=== PATIENT | female | born 2000 | race Caucasian/White ===

== ENCOUNTER → 2021-10-12 | Outpatient (CLI) | payer BC, SELFPAY ==
[2021-10-19 14:14] LABS: HPV Reflexed? NOT INDICATED
== END | disposition home or self-care (01) ==
LOC: LABSPEC 11:32
PROVIDERS: Visit Provider Obstetrics & Gynecology
DX: Z12.4 Encounter for screening for malignant neoplasm of cervix (principal)
CPT/HCPCS: 88175; G0145

== ENCOUNTER 2022-02-07 08:00 | Outpatient (RCR) | payer OTHER, SELFPAY ==
--- NOTE | 2022-02-07 10:15 | BH.SGPN.GN ---
Behaviors/Verbalizations/Mental Status: []Pt alert and oriented, casually dressed and groomed. Eye contact good. Motor activity appropriate. Speech within normal limits. Affect constricted, mood anxious. Thoughts linear, logical, no signs of hallucinations or delusions. Client Response/Progress/Benefit: []Pt was a passive participant in group discussion. Group worked together to identify benefits of healthy relationships which included improves mental health, encouragement, motivation, accountability, validation, connection, someone to share experiences with, and less stress. Group identified factors that lead to unhealthy relationships which included financial stress, lack of communication, .?Actively participated in group experiential activity and expressed her ideas to group. Benefited from increased insight and awareness of benefits of healthy relationships and factors that contribute to unhealthy relationships. First week of IOP tx. Will continue in IOP to prevent decompensation, reduce negative thinking, and gain healthy coping skills. ? Narrative Note: []
--- NOTE | 2022-02-07 11:10 | BH.SGPN.GN ---
Behaviors/Verbalizations/Mental Status: [] Client alert and oriented, casually dressed and groomed. Eye contact fair. Motor activity appropriate. Speech within normal limits. Affect constricted, mood depressed and anxious. Thoughts linear, logical, no signs of hallucinations or delusions. Client Response/Progress/Benefit: [] Client responded well to session, engaged and taking notes. work with small group to identify characteristics of healthy and unhealthy relationships. Attentive during psychoeducation and discussion about characteristics of healthy, unhealthy, and abusive relationships. Client reported she is currently in her first healthy relationship and is worried she isn't good enough for him because she is a hot mess. Client agreed allowing herself to be in this relationship instead of sabotaging the relationship because of her negative self-talk. Appeared to benefit from identifying areas she wants to work on to build healthier relationships. Pt recommended to continue IOP tx to improve daily functioning, increase healthy coping, and prevent decompensation.
--- NOTE | 2022-02-07 14:43 | BH.MDN_ITS ---
Multi-Disciplinary Note - Note 45-min Individual Time Started:: 09:16 Date: 02/07/22 Purpose of session/treatment goals addressed:: To gather information on client's current stressors, symptoms, triggers, and tx goals. Another goal was to build rapport and provide emotional support. Eye Contact:: Good Motor Activity:: Appropriate Appearance:: Casual Speech:: Appropriate, Soft Mood:: Anxious, Depressed Affect:: Congruent Thoughts:: Linear, Logical, No evidence of hallucinations/delusions noted Staff Interventions:: motivational interviewing, psychoeducation on: - maintenance cycles, safety behaviors, rapport building, strengths perspective, treatment planning, goal setting Client Response:: Pt responded well to session, open to meeting with therapist. 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 Shared that she is struggling most with a lack of local support, feeling isolated/lonely, managing stress of her schedule, and fears she will not be able to meet the expectations she has for herself. Discussed she has been seeing a counselor through [facility] since beginning graduate school, but has found limited benefit from this. Pt reports feeling like nothing is getting better and struggling with negative thoughts that her depression and anxiety are going to keep her from being successful. Denies having any healthy coping skills and is interested in developing healthier means of managing her depression, passive SI, ruminating thoughts, and anxiety. Pt denies any active SI, plan, or intent but in the past has become suicidal when feeling overwhelmed or if she thinks she is ?failing? at reaching a goal. Pt has a hx of self-harming via cutting herself with cuticle scissors, last engaged in self-harming behaviors 2 years ago. Reports wanting a focus of tx to be on improving her social anxiety and ability to make connections with others in the area. Connected with psychoeducation on maintenance cycles and safety behaviors. Receptive of reviewing information on fear ladders for homework to begin discussing use of some exposure therapy in improving confidence in social settings. Risks/Concerns:: Chronic passive SI, however Pt denies any active suicidal ideations, plan, or intent as of 02/07/22. Pt denies any HI. Progress Toward Goals/Plan:: Pt's first day of IOP tx. Pt shared she is looking forward to learning skills for better managing her mental health sx and improving mood stability. Pt currently endorses a depressed mood, low confidence, panic, crying spells, rumination, anxiety, apathy, and low motivation. Pt reports symptoms are impacting her academics, desire to do things, and ability to develop healthy relationships/supports in the area. Pt has outpatient counseling and psychiatry services already established. Pt will continue IOP tx to prevent decompensation, increase healthy coping skills, and improve overall functioning. Time Stopped:: 10:05
--- NOTE | 2022-02-07 14:43 | BH.MTP ---
Master Treatment Plan - Patient Information Program Physician:: Dr. Allison Pack Primary Therapist:: APPLE Beck - Psychiatric Diagnoses Psychiatric Diagnoses:: 1. Major depressive disorder, recurrent, severe without psychosis. 2. Generalized anxiety disorder. 3. Cluster B traits Diagnosis Code(s):: F 33.2 - Estimated LOS Estimated LOS (in weeks):: 6 Problem/Goal #1 - Problem/Goal #1 Stated Goal:: Client will decrease depressive symptoms, isolation, negative self-talk, and hopelessness to major depression disorder. Description of Barriers: Client does not have any supports in the area. Client reports fear of failure and worries she will not be able to accomplish her goals.Client has significant distortions and experiences difficulties in challenging these distortions. Functional Impact: The patient is a 21-year-old single female with a history of depression and anxiety who was referred to the [facility] behavioral health IOP program by her outpatient psychologist. She reports worsening depression and anxiety since September 2021 when she began her graduate school program. She states I cannot make myself face the day and describes that she has to lie in bed for an hour crying in order to try to get up in the morning. 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 At time of intake pt endorses feeling depressed, sad, hopelessness, worthlessness, anhedonia, decreased concentration, rumination, avoidance, and lack of interest in activities she enjoys. denies OCD, eating disorder, trauma or PTSD. She also denies suicidal ideation or plan for suicide but does admit to passive thoughts of on occasion. She denies homicidal ideation, hallucinations, delusions or symptoms of toshia ever. Pt reports that current sx are impacting her academically, socially, and impeding her ability to find value in herself. - Objectives Objective #1 Stated Objective: Client will learn and utilize 2-3 healthy coping strategies to better manage depressive symptoms as shown by a reduced DSM-5 scores for depression. Interventions: Through group and individual sessions, therapist will help client identify triggers and warning signs of depression and emotional dysregulation including emotional, physical, and behavioral changes. Therapist will teach client various coping skills to manage her symptoms and give client tangible resources to use to regulate emotions. Therapist will use cognitive restructuring techniques and help client gain awareness of negative thoughts that reinforce guilt and depression. Therapist will provide psychoeducation on maintenance cycles and help client learn ways to break unhealthy maintenance cycles. Therapist will help client incorporate behavioral activation and assist client in setting SMART goals. Discharge Criteria: Client will have met this goal when she can report learning and using at least 2 coping skills to manage depressive symptoms. Additionally, client will have met this goal when her depressive symptoms have reduced on the DSM-5 scale. Target Date: 03/21/22 Review Date: 02/28/22 Objective #2 Stated Objective: Client will identify at least 2-3 negative self-talk messages used to reinforce negative core beliefs and replace thoughts with positive, realistic messages. Interventions: Therapist will help client identify distorted, negative beliefs about self and replace with more realistic, affirmative messages. Therapist will use CBT to help client increase insight to the connection between thoughts, emotions, and behaviors. Therapist will also use dialectical thinking to help client combat all or nothing expectations and fear of failure. Therapist will encourage client to practice thought challenging. Discharge Criteria: Client will have achieved this goal when can verbalize at least 2 negative self-talk messages and effectively replace those thoughts with affirmative messages. Target Date: 03/21/22 Review Date: 02/28/22 Problem/Goal #2 - Problem/Goal #2 Stated Goal:: Client will decrease ruminating thoughts, avoidance, and racing thoughts caused by anxiety. Description of Barriers: Client does not have any supports in the area. Client reports fear of failure and worries she will not be able to accomplish her goals.Client has significant distortions and experiences difficulties in challenging these distortions. Functional Impact: The patient is a 21-year-old single female with a history of depression and anxiety who was referred to the [facility] behavioral health IOP program by her outpatient psychologist. She reports worsening depression and anxiety since September 2021 when she began her graduate school program. She states I cannot make myself face the day and describes that she has to lie in bed for an hour crying in order to try to get up in the morning. 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 At time of intake pt endorses feeling depressed, sad, hopelessness, worthlessness, anhedonia, decreased concentration, rumination, avoidance, and lack of interest in activities she enjoys. denies OCD, eating disorder, trauma or PTSD. She also denies suicidal ideation or plan for suicide but does admit to passive thoughts of on occasion. She denies homicidal ideation, hallucinations, delusions or symptoms of toshia ever. Pt reports that current sx are impacting her academically, socially, and impeding her ability to find value in herself. - Objectives Objective #1 Stated Objective: Client will identify 2-3 cognitive distortions that lead to rumination and learn 2-3 ways to manage these thoughts to better manage anxiety. Interventions: Therapist will provide education on the most common cognitive distortions and teach client the connection between thoughts, emotions, and feelings. Therapist will assist client in identifying, challenging, and replacing dysfunctional thoughts with positive, more realistic thoughts. Therapist will use CBT and DBT techniques to help client gain awareness of thinking errors and learn how to handle negative thoughts more effectively. Therapist will also use self-compassion to help client set more realistic expectations for herself. Discharge Criteria: Client will have accomplished this goal when can identify at least 2 cognitive distortions and at least 2 coping skills to manage negative thoughts. Target Date: 03/21/22 Review Date: 02/28/22 Objective #2 Stated Objective: Client will identify 2-3 anxiety triggers and 2 coping skills to use when feeling anxious to manage anxiety as shown by decreasing her avoidance behaviors and DSM-5 scores for anxiety. Interventions: Therapist will provide education on anxiety, avoidance behaviors, and maintenance cycles. Therapist will help client explore personal symptoms and warning signs of anxiety. Therapist will teach client coping skills to improve emotional regulation, mindfulness, and distress tolerance to help client cope with anxiety in the moment. Discharge Criteria: Client will have accomplished this goal when she can identify at least 2 triggers and report using 2 coping skills to manage anxiety. Additionally, client will have accomplished this goal when her avoidance behaviors and DSM-5 scores show a reduction. Target Date: 03/21/22 Review Date: 02/28/22
--- NOTE | 2022-02-07 14:43 | BH.PSA ---
Suicide Assessment Treatment Plan Recommendations
--- NOTE | 2022-02-08 09:00 | BH.SGPN.GN ---
Behaviors/Verbalizations/Mental Status: [] Eye contact is fair. Motor activity is appropriate. Appearance is casual. Speech is Appropriate. Mood is anxious. Affect is constricted. Thoughts are linear and logical. No evidence of psychosis. Reviewed daily check in sheet and no reports of suicidal ideations or intent. Client Response/Progress/Benefit: []Pt responded well to session AEB listening attentively to others and sharing thoughts and feelings. Pt identified mental health positive as showing up from IOP today for her second day in the program. Additional positive as setting boundary with her ex-boyfriend that she can't be his support person anymore after he was talking to her about his suicidal thoughts. Pt stated she realized trying to be his support person was negatively impacting her mental health. Pt identified stressor as having to go home for the holidays because she stated it won't feel like she had much of a break. Pt to continu eIOP to improve daily functioning, increase healthy coping, and prevent decompensation. Narrative Note: []
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
--- NOTE | 2022-02-08 10:05 | BH.SGPN.GN ---
Behaviors/Verbalizations/Mental Status: []Eye contact is good. Motor activity is appropriate. Appearance is casual. Speech is Appropriate. Mood is depressed and anxious. Affect is congruent. Thoughts are linear and logical. No evidence of psychosis. Client Response/Progress/Benefit: []Pt participated during the group discussion AEB attentiveness however pt provided limited input as this is only her second day in IOP group. Attentive during psychoeducation and actively engaged during experiential activity. Participated during interactive discussion on aspects of fixed mindset. Group identified several aspects of fixed mindset which included; inflexible, belief that one cannot grow, absolute thinking, and all of one's skills, traits, and behaviors are set in stone and can't change. Pt did well in experiential activity in which they were given a seemingly impossible task and were asked to identify fixed thoughts that arose. Group then identified personal examples of fixed thinking in which pt opted not to share with the group. Pt is still new to IOP tx and adjusting to sharing personal thoughts and feelings in the group setting. Benefited from increased understanding of personal fixed mindsets and how they can impact mental health. Will continue in IOP to promote healthy skill application, improve anxiety management, and promote self-care. Narrative Note: []
[2022-02-08 10:21] VITALS: BP 132/80; PULSE 101
--- NOTE | 2022-02-08 11:05 | BH.SGPN.GN ---
Behaviors/Verbalizations/Mental Status: []Pt alert and oriented, neatly dressed and groomed. Eye contact good. Motor activity appropriate. Speech within normal limits. Affect congruent, mood anxious. Thoughts linear, logical, no signs of hallucinations or delusions. Client Response/Progress/Benefit: []Pt engaged during activity and discussion AEB providing some input, connecting with peers, as well as taking notes throughout. Pt did well to engage as group worked on identifying characteristics and benefits of adopting a growth mindset. Worked with fellow participants in reframing the example fixed thoughts into growth mindset thoughts. Reframed personal fixed thought of ?I?m not good enough and I?ll never be? with growth mindset thought of ?I wouldn?t be here if there was evidence that I wasn?t good enough? Benefitted from discussing benefits of growth mindset and brainstorming strategies for prompting growth-mindset. Pt?s first week of IOP tx. Will continue IOP tx to prevent decompensation, gain healthy coping skills, and improve overall functioning. ?? Narrative Note: []
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
--- NOTE | 2022-02-08 12:17 | BH.DR.ITP ---
Initial Treatment Plan Patient Information Visit Information: ADMISSION DATE: EXPECTED LOS: 4-6 weeks Problems/Symptoms Problem #1:: Depression Symptom:: Sadness, hopelessness, worthlessness, anhedonia, fatigue, low energy, decreased concentration, passive thoughts of Problem #2:: Anxiety Symptom:: Worry, rumination, panic attacks, avoidance
--- NOTE | 2022-02-15 11:08 | BH.SGPN.GN ---
Behaviors/Verbalizations/Mental Status: []Pt alert and oriented, neatly dressed and groomed. Eye contact good. Motor activity appropriate. Speech within normal limits. Affect congruent, mood anxious. Thoughts linear, logical, no signs of hallucinations or delusions. Client Response/Progress/Benefit: []Pt engaged in session AEB contributing to discussion and engaging in activity. Pt did well to review current conflict style and its impact on mental health. Attentive and taking notes during discussion on strategies for more effectively managing conflict in personal life.? Pt participated in activity and did well to talk through choices with peers. Pt given handout on fair fighting rules and identified that they want to work on asking herself why she is upset before she begins talking about an issue. Appeared to benefit from gaining strategies to help pt better manage conflict. Will continue IOP tx to reduce depressive symptoms, improve daily functioning, and increase self-compassion. Narrative Note: []
--- NOTE | 2022-02-15 11:27 | BH.MDN ---
Multi-Disciplinary Note - Note 60-min Individual Time Started:: 09:29 Date: 02/15/22 Purpose of session/treatment goals addressed:: To work on goal #2 of pt's treatment plan. Another goal was to process current stressors. Eye Contact:: Fair - tearful throughout discussion Motor Activity:: Appropriate Appearance:: Casual Speech:: Appropriate Mood:: Anxious, Depressed Affect:: Congruent Thoughts:: Linear, Logical, No evidence of hallucinations/delusions noted Staff Interventions:: thought challenging, CBT techniques - Discussed and created a fear ladder, mindfulness skills - reviewed calming skills for anxiety, strengths perspective, goal setting Client Response:: Pt responded well to session, open to meeting with therapist. Pt shared belief thats he is doing worse since her trip home for the holidays. Reports visiting with her sister was a positive, but that her relationship with her parents is strained. Expressed feeling lonely and isolated upon returning home as she does not have many friends in the area. Pt?s boyfriend is visiting this weekend but pt is often isolated when he is not visiting or she is not in class. 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 Reports this has also impacted her academically as she experiences similar fears when presenting her work or asked to collaborate on a research project. Pt wants to feel more comfortable and confident in presenting her work, make more friends, and be social, but pt shared extreme anxiety in trying to communicate with others. Pt identified thoughts she has when socializing or presenting her work such as assuming people will not like her, think she is dumb, or discover her work is ?hollow?. Pt highly fears embarrassing herself in front of people. Pt receptive to creating a fear ladder focused on overcoming social anxiety and fear of embarrassment. Discussed the reason for this approach and the potential benefits. Pt expressed extreme anxiety about challenging herself to begin identifying and working on small exposure goals but noted ?I need this, I know it won?t change it I don?t work on it?. Discussed the importance of practicing outside of IOP and while in IOP sessions. Pt receptive of creating exposure goals for homework and begin challenging herself to share in the group setting. Risks/Concerns:: Pt denies any active suicidal ideations, plan, or intent as of 02/15/22. Future oriented. Progress Toward Goals/Plan:: Pt is making progress on treatment goals AEB consistent attendance, but pt reports depression and anxiety have not improved yet. Discussed to shift focus on reducing social anxiety to help alleviate depressive symptoms. Pt continues to endorse a depressed mood, isolative behaviors, fear of judgement, avoidance, and negative self-talk. Pt will continue IOP tx to prevent further decompensation, increase ability to manage anxiety, and improve daily functioning. Time Stopped:: 10:32
--- NOTE | 2022-02-16 09:05 | BH.SGPN.GN ---
Behaviors/Verbalizations/Mental Status: [] Eye contact is good. Motor activity is appropriate. Appearance is casual. Speech is Appropriate. Mood is euthymic. Affect is full. Thoughts are linear and logical. No evidence of psychosis. Reviewed daily check in sheet and no reports of suicidal ideations or intent. Client Response/Progress/Benefit: [] Pt participated at times during the group discussion. Participated in group mindfulness exercise (5 senses).Daily symptom tracker notes 3/5 for depression and 4/5 for anxiety. Huoli talon was talking with a supportive person last evening. She is stressed about the upcoming semester due to increased courses and responsibilities. Fearful that she may have overscheduled herself due to her struggles with mental health. The only coping skill that she can identify is distraction to manage her thoughts and distress. Group provided support, encouragement, and feedback which was helpful. Will continue in IOP to maintain safety, prevent decompensation, and increase coping skills. Narrative Note: []
--- NOTE | 2022-02-16 10:05 | BH.SGPN.GN ---
Behaviors/Verbalizations/Mental Status: []Eye contact is good. Alert and oriented. Motor activity is appropriate. Appearance is casual. grooming is appropriate. Speech is Appropriate. Mood is depressed and anxious. Affect is constricted. Thoughts are linear and logical. No evidence of psychosis or hallucinations. Client Response/Progress/Benefit: []Client active participate AEB listening attentively to others and providing contributions throughout. The group identified impacts of not managing emotions on communication as lashing out, stone-walling, not retaining information, and monopolizing the conversation. Client stated she has struggled with either shutting down or avoiding confrontation when upset, noting this has had negative impacts on her self-worth, reinforces anxiety, and impedes her ability to resolve the issue at hand in the past. Client engaged in activity, able to manage emotions in the moment. Client benefited from session to gain understanding on the importance of managing emotions to improve daily functioning. Client will continue IOP to increase use of healthy anxiety management skills, challenge negative thoughts, and prevent decompensation. Narrative Note: []
--- NOTE | 2022-02-16 11:15 | BH.SGPN.GN ---
Behaviors/Verbalizations/Mental Status: []Pt alert and oriented, casual appearance. Eye contact fair. Motor activity appropriate. Speech within normal limits. Affect congruent and mood euthymic. Thoughts linear, logical, no signs of hallucinations or delusions. Client Response/Progress/Benefit: []Pt engaged in session AEB pt listening attentively to peers, taking notes, and providing input. Attentive during psychoeducation on 4 zones of regulation. Pt able to identify feelings and behaviors pt exhibits for each zone.? Pt identified coping skills one can use to support self in each zone. Pt reported she connects with being in the blue zone most often. Pt identified coping skills willing to practice to include: moving her body and doing art. Benefited from increased education on zones of regulation or stages of alertness for emotions and healthy coping skills to use for each zone. pt to continue IOP to improve ability to set realistic expectations, give self credit for accomplishments and prevent decompensation.
--- NOTE | 2022-02-17 09:05 | BH.SGPN.GN ---
Behaviors/Verbalizations/Mental Status: []Pt alert and oriented, neatly dressed and groomed. Eye contact good. Motor activity appropriate. Speech within normal limits. Affect congruent, mood calm. Thoughts linear, logical, no signs of hallucinations or delusions. Reviewed pt?s symptom tracker and pt denies any active SI, plan, or intent as of 02/17/22. ? Client Response/Progress/Benefit: []Pt responded well to session, attentive and engaged. Pt reports feeling encouraged this morning as pt's boyfriend is coming to visit for the holiday and pt is excited to see him. To shared she also took some time to be crafty recently and pt benefited from this self-care time. Pt is highly anxious about the upcoming semester as pt historically puts high expectations on herself and pt knows the work load will be a challenge. The group offered supportive suggestions to help pt cope with the next semester. Pt appeared to benefit from connecting with peers and reflecting on skills. Pt will continue IOP tx to promote use of healthy coping skills, reduce negative thinking patterns, and improve mood stability. Narrative Note: []
--- NOTE | 2022-02-17 10:10 | BH.SGPN.GN ---
Behaviors/Verbalizations/Mental Status: Client alert and oriented, casually dressed and groomed. Eye contact fair. Motor activity appropriate. Speech within normal limits. Affect congruent, mood anxious. Thoughts linear, logical, no signs of hallucinations or delusions. Client Response/Progress/Benefit: [Client responded well to session, attentive and participating in discussion. Participated in discussion of things that can keep people feeling trapped or stuck in life including: isolation, past experiences, negative perspective, and low self-esteem. Group discussed the connection between thoughts, emotions, and behaviors as well as how negative thinking can keep a person stuck. Client attentive during psychoeducation on maintenance cycles. Client able to identify negative thoughts that have reinforced depression and kept client feeling trapped. Client shared a negative thought maintaining depression is I will fail or not do well in all my work. Stated this thought leads to procrastination, feeling exhausted, crying, and isolation. Appeared to benefit from gaining awareness of how negative thoughts reinforce mental health symptoms and keep people stuck. Client to continue IOP to improve ability to give self credit for positives, increase confidence, and prevent decompensation.
--- NOTE | 2022-02-17 11:05 | BH.SGPN.GN ---
Behaviors/Verbalizations/Mental Status: []Client alert and oriented, casually dressed and groomed. Eye contact good. Motor activity appropriate. Speech within normal limits. Affect constricted, mood anxious and depressed. Thoughts linear, logical, no signs of hallucinations or delusions. Client Response/Progress/Benefit: []Client responded well to session, contributing to discussion when prompted, and attentive throughout discussion. Client identified a negative thought that has kept them stuck. Client's thought was Everyone can see my work is hollow and not good enough?. Client reported when they think this way, they procrastinate, speak negatively to self, and isolate. Client worked to reframe the thought by finding more rational, realistic ways to look at the thoughts and then processed within group setting. Client reframed the thought to ?I am trying my best?. Client stated she will continue to try and remind herself of times she has been given compliments on her work to continue challenging negative self-talk. Client appeared to benefit from practicing challenging negative thinking. Client will continue IOP tx to increase overall functioning and prevent decompensation. Narrative Note: []
== END 2022-02-18 23:59 ==
LOC: BHIOP 08:00
PROVIDERS: Referring Provider Psychiatry & Neurology Psychiatry; Visit Provider Psychiatry & Neurology Psychiatry
DX: F33.2 Major depressive disorder, recurrent severe without psychotic features (principal); F41.1 Generalized anxiety disorder; Z79.899 Other long term (current) drug therapy
CPT/HCPCS: S9480; 90834; 90837; 90853

== ENCOUNTER 2022-02-21 07:31 | Outpatient (RCR) | payer OTHER, SELFPAY ==
[2022-02-19 00:40] VITALS: BP 132/80; PULSE 101
--- NOTE | 2022-02-22 10:10 | BH.SGPN.GN ---
Behaviors/Verbalizations/Mental Status: [] Eye contact is poor. Motor activity is appropriate. Appearance is casual. Speech is Appropriate. Mood is depressed. Affect is flat. Thoughts are linear and logical. No evidence of psychosis Client Response/Progress/Benefit: [] Pt participated at times during group discussions. Attentive during psychoeducation. Pt and peers provided thoughts and feedback on the definition of crisis and types of crisis events. Participated in interactive discussion in which group identified unhealthy responses to crisis which included; alcohol use, drug use, sleeping to escape, binge-eating, lashing out at others, creating conflict to distract, isolating, avoiding responsibilities, not caring for oneself, and overspending. Pt was able to identify her top warning signs for being in crisis which were very low energy, unable to concentrate, and avoiding things. Benefited from increased understanding of crisis and pt's personal crisis warning signs. Will continue in IOP to prevent decompensation, increase healthy coping, and to improve functioing. Narrative Note: []
--- NOTE | 2022-02-22 11:10 | BH.SGPN.GN ---
Behaviors/Verbalizations/Mental Status: []Client alert and oriented, casually dressed and groomed. Eye contact fair. Motor activity appropriate. Speech within normal limits. Affect constricted. Mood dysthymic. Thoughts linear, logical, no signs of hallucinations or delusions. Client Response/Progress/Benefit: []Client responded well to session as evidenced by client listening attentively to others and providing strategies during discussion. Client identified his warning signs for crisis and gained further awareness of earliest warning signs. Client created a crisis action plan to help client better manage warning signs for crisis. Client?s action plan for low energy included: going to bed earlier, practicing self-care, move/stretch for 5 minutes, and use distress tolerance skills. Client appeared to benefit from creating a crisis action plan and increasing self-awareness. Client to continue IOP tx to continue use of healthy coping skills and prevent decompensation.
--- NOTE | 2022-02-22 12:14 | PCM.BH.PN ---
Progress Note Progress Note: History of Present Illness/Interim History: Patient is a 21-year-old single, female with a history of depression and anxiety who is seen in follow-up at the [facility] IOP program. I last saw the patient 2 weeks ago and at that time no medication changes were made as her outpatient provider was weaning her Lexapro and changing her over to Zoloft. The patient discontinued the Lexapro about 2 weeks ago and her Zoloft was increased to 25 mg about 12 days ago. The patient states that she still overall feels depressed and hopeless and overwhelmed at times. She does say that she had a fun weekend and enjoyed playing her new video game crafting and other hobbies but overall states that she does not feel much better. The patient still has some difficulty getting an up out of bed in the morning but says that she is no longer crying during that time. The patient still has a low energy level and somewhat decreased concentration. She has not had any panic attacks since our last visit. She denies passive thoughts of , suicidal ideation, homicidal ideation, hallucinations or delusions. Current Psychiatric Medications: [] Lexapro discontinued 2 weeks ago; Zoloft increased to 25 mg daily about 12 days ago. Mental Status Examination: [] Patient is a 21-year-old female who has her hair dyed red in the near the end and is ambulatory with a normal gait. She is appears normal for stated age and is casually dressed psychomotor agitation or retardation. She is cooperative during the interview. Eye contact is fair but she looks down at times when she talks about certain subjects. Speech is normal rate and rhythm and fluent with no pressure. Mood is depressed. Affect is minimally constricted and approaching full and normal. Thought process is goal-directed and organized. Thought content: There is no evidence of passive thoughts of , suicidal ideation, plan for suicide, homicidal ideation, hallucinations or delusions. The patient discusses having fun and enjoying things now but when asked states that she feels she is overall relatively unchanged. Reality testing is intact. Intelligence is above average. Judgment is intact. Insight is limited. Diagnoses: [] 1. Major depressive disorder, recurrent, severe without psychosis 2. Generalized anxiety disorder 3. Cluster B traits 4. Primary support and school/career issues Plan: [] The patient will continue the IOP program in behavioral health at [facility] as the structure, support, education and group therapy will hopefully prevent worsening of the patient's symptoms. She felt safe during the interview and if it anytime she does not feel safe she will let us know or go to the emergency room. The risks, options, and possible complications and side effects of medications were again discussed with the patient and she understands and accepts these. Patient is given the option of adding Wellbutrin XL 150 mg p.o. daily to her medication regimen. The patient refuses this at this time as she sees her outpatient doctor tomorrow and she is a little concerned that she might feel more anxious if she takes it. Patient will follow up with her outpatient providers as scheduled and I will see the patient in follow-up in 3 weeks.
--- NOTE | 2022-02-23 09:03 | BH.SGPN.GN ---
Behaviors/Verbalizations/Mental Status: []Eye contact fair to good, casually dressed, motor activity appropriate, speech normal rate and tone, mood dysthymic and anxious, congruent affect, thoughts linear and intact, no evidence of delusions or hallucinations. Reviewed pt's symptom tracker, reports suicidal ideation within pt baseline and denies active plan or intent as of this date 02/23/22. Client Response/Progress/Benefit: []Pt responded well to session, attentive and providing some supportive feedback throughout which is progress. Pt reports feeling melancholy this morning. Able to identify current mental health wins which included getting here despite struggling with increased fatigue this morning, as well as opening up to her feed management advisor about her mental health. Shared her advisor was supportive and encouraged pt to continue to communicate should she need any accommodations this semester. Pt went on to discuss a current stress as feeling overwhelmed by her to-do list and the upcoming start of the semester. Receptive of supportive feedback from fellow participants and willing to begin trying to take small self-care breaks throughout the day. Recommended continued IOP tx continue to improve mood stability and application of anxiety management skills, as well as prevent decompensation. Narrative Note: []
--- NOTE | 2022-02-23 10:05 | BH.SGPN.GN ---
Behaviors/Verbalizations/Mental Status: []Pt alert and oriented, neatly dressed and groomed. Eye contact good. Motor activity appropriate. Speech within normal limits. Affect constricted, mood stressed. Thoughts linear, logical, no signs of hallucinations or delusions. Client Response/Progress/Benefit: []Pt was an active participant in group discussions. Attentive during psychoeducation and participated in interactive discussions in which group defined self-care, discussed the benefits to self-care, and identified common myths surrounding self-care. Pt shared that when she is lacking self-care, her focus and attention decreases. Pt and peers broke into smaller group and worked together to bust the myths associated with self-care. Pt?s group worked on myths of self-care is not necessary, not everyone deserves self-care, and it takes too much energy. Benefited from increased awareness of the self-care and its benefits. Pt will continue IOP tx to reduce negative thinking patterns, improve mood stability, and gain healthy coping skills. ?? Narrative Note: []
--- NOTE | 2022-02-23 11:10 | BH.SGPN.GN ---
Behaviors/Verbalizations/Mental Status: []Pt alert and oriented, casually dressed and groomed. Eye contact fair. Motor activity appropriate. Speech within normal limits. Affect congruent, mood anxious and dysthymic. Thoughts linear, logical, no signs of hallucinations or delusions. Client Response/Progress/Benefit: []Pt engaged participant AEB completing self-assessment worksheet and providing some input throughout discussion. Participated in group discussion on the various areas of self-care. Pt completed worksheet identifying current self-care practices and what self-care activities pt wants to start using. Pt selected emotional self-care to begin practicing more consistently. Pt plans to do this by acknowledging accomplishments, setting boundaries, and positive self-talk. Appeared to benefit from completing the self-care evaluation and gaining insights into current self-care practices, as well as identifying areas in which she would like to improve upon. Will continue IOP tx to increase healthy coping skills, increase ability to set realistic expectations and prevent decompensation.
--- NOTE | 2022-02-24 10:08 | BH.SGPN.GN ---
Behaviors/Verbalizations/Mental Status: []Pt alert and oriented, casually dressed and groomed. Eye contact good. Motor activity appropriate. Speech within normal limits. Affect constricted, mood anxious. Thoughts linear, logical, no signs of hallucinations or delusions. Client Response/Progress/Benefit: []Pt was engaged participant AEB pt listening attentively to others and nodding. Attentive during psychoeducation on communication styles. Assisted group with identifying barriers of effective communication which included: mind-reading, body language, communicating with behaviors, and being vague. Pt reports that she most often uses passive or passive aggressive communication. Pt shared this leads to lack of boundaries and lots of ?setups? for pt and others. Benefited from increased awareness of different communication barriers, styles, and the importance of communicating effectively to improve mental wellness. Will continue IOP tx to prevent decompensation, improve mood stability, and reduce negative thinking patterns. Narrative Note: []
--- NOTE | 2022-02-24 11:10 | BH.SGPN.GN ---
Behaviors/Verbalizations/Mental Status: []Client alert and oriented, casually dressed and appropriately groomed. Eye contact good. Motor activity appropriate. Speech WNL. Affect congruent, mood anxious. Thoughts linear, logical, no signs of hallucinations or delusions. Client Response/Progress/Benefit: []Client responded well to session AEB client listening attentively to others and providing input during group discussion on the pay offs and costs of the different communication styles. Client able to connect how current communication style impacts mental health. Client engaged in activity, used assertive communication throughout in order to accomplish task. Connected with peers comments about importance of using assertive communication. Client reported she wants to use SHARI interpersonal skill to help her talk through problems with others. Client seemed to benefit from increasing awareness of healthy strategies to improve communication. Will continue IOP tx to increase consistent use of skills, challenge distortions, and prevent decompensation.
--- NOTE | 2022-02-24 11:24 | BH.MDN_ITS ---
Multi-Disciplinary Note - Note 45-min Individual Time Started:: 09:14 Date: 02/24/22 Purpose of session/treatment goals addressed:: To address current stressors and discuss strategies to help cope with these stressors. Another goal was to discuss discharge and aftercare. Eye Contact:: Good Motor Activity:: Appropriate Appearance:: Casual Speech:: Appropriate Mood:: Anxious, Dysthymic Affect:: Congruent Thoughts:: Linear, Logical, No evidence of hallucinations/delusions noted Staff Interventions:: motivational interviewing - reviewed strategies for overcoming self-care barriers, psychoeducation on: - mistaken beliefs and provided questionnaire for homework, CBT techniques, strengths perspective, other - created self-care plan to begin incorporating in daily routine Client Response:: Pt responded well to session, open to meeting with therapist. Pt shared she is feeling a little melancholy today as she had a good weekend with her boyfriend and felt she had been able to ?escape? for a little while. Noted now that she is back in her regular routine and preparing for the spring she is beginning to feel more overwhelmed and unable to manage her current responsibilities as efficiently as she would like. Shared that when she has multiple tasks to accomplish she feels overwhelmed and anxious, often leading to using avoidance as a safety behavior. Recognized this only increases her anxiety long-term. Discussed trying to incorporate some of the time management and productivity strategies recommended by fellow participants the previous date and was able to accomplish 6 different tasks on her to-do list. Re ported initial sense of accomplishment and rewarding herself by playing a game. However, was unable to maintain this sense of accomplishment, explaining increased thoughts of ?I only accomplished trivial tasks today? and ?I should be doing something more productive than playing video games?. Notes difficulties engaging in consistent self-care as she feel she must first earn it, but rarely feels she has done enough to earn this. Able to identify the potential consequences of not practicing self-care, and ultimately burning out/being even less productive. Can rationally identify the importance of regular self-care but continues to report discomfort in allowing herself to schedule time to engage in activities she enjoys that are not also productive. Worked with therapist to identify self-care activities she could view as being productive in other ways or that she could incorporate by taking 5-10 minutes between tasks throughout her . Reported taking small stretch or walk breaks during the day might help to better break up tasks and provide her an opportunity to refresh her perspective. Additionally, identified crafting as being enjoyable and feeling somewhat productive as she can see physical progress on her project. Willing to try both self-care skills over the next few days. Additionally, identified importance of beginning to recognize and combat distortions and mistaken beliefs in order to begin to improve overall tx engagement. Risks/Concerns:: Pt denies any suicidal ideations or thoughts of as of this date, 02/24/22. Future oriented Progress Toward Goals/Plan:: Pt is making progress towards tx goals AEB improved engagement in group as well as ability to manage anxiety in individual session, as well as self-reports of opening up to her advisor about her mental health. Pt is more actively using healthy coping skills outside of IOP and reports some improved ability to practice self-compassion. Pt is continuing to struggle with stress management and unrealistic/high expectations of herself. Connected with psychoeducation on mistaken beliefs and is open to beginning work on this. Pt will continue IOP tx to further improve mood stability, reduce depressive sx, and prevent decompensation. Time Stopped:: 09:56
--- NOTE | 2022-02-27 09:00 | BH.SGPN.GN ---
Behaviors/Verbalizations/Mental Status: []Pt alert and oriented, casually dressed and groomed. Eye contact good. Motor activity appropriate. Speech within normal limits. Affect flat, mood depressed. thoughts linear, logical, no signs of hallucinations or delusions. Reviewed pt?s symptom tracker, no risk for suicidal ideation, plan, or intent as of 02/27/22. Pt's scores are within her baseline. Client Response/Progress/Benefit: []Pt responded well to session, attentive and receptive to feedback. Pt reports feeling hopeless this morning due to feeling overwhelmed about the upcoming semester. Pt has insight that she has unrealistic expectations of herself which results in pt pushing herself too when in school. Pt received supportive statements and ideas from peers on how to manage the new semester. Pt's mental health wins today include taking a self-care day this weekend and getting to IOP tx today despite wanting to cancel. Pt appeared to benefit from ideas from peers and gentle thought challenging. Pt will continue IOP tx to prevent decompensation, increase mood stability, and improve self-care. Narrative Note: []
--- NOTE | 2022-02-27 10:10 | BH.SGPN.GN ---
Behaviors/Verbalizations/Mental Status: []Eye contact is fair. Motor activity is appropriate. Appearance is casual and grooming tended to. Speech is Appropriate. Mood is anxious. Affect is congruent. Thoughts are linear and logical. No evidence of psychosis. Client Response/Progress/Benefit: []Client receptive of session, actively engaged throughout AEB taking notes and providing input and examples to discussion. Appeared to connect with group topic of cognitive distortions and the impact of thought patterns on mental health, coping behaviors, and relationships. Reflected that she personally tends to struggle with all or nothing thinking. Client stated this distortion makes it hard for her to recognize her progress and wins. Client stated she make a mistake and think Oh my gosh they think I'm an idiot. Client appeared to benefit from gaining insight on distorted thinking patterns and how this impacts overall mental health. Progress noted in client report of improved insight into her own distorted thinking patterns. Will continue IOP tx to challenge negative thoughts, increase healthy coping, and prevent decompensation.
--- NOTE | 2022-02-27 11:10 | BH.SGPN.GN ---
Behaviors/Verbalizations/Mental Status: []Eye contact is good. Motor activity is appropriate. Appearance is casual. Speech is Appropriate. Mood is anxious. Affect is congruent. Thoughts are linear and logical. No evidence of psychosis. Client Response/Progress/Benefit: []Pt was an active participant in the group activity which involved working with peers to answer questions related to psychoeducation on cognitive distortions. Questions were posed in the fashion of Jeopardy and the categories included; Identifying the Cognitive Distortion, Ways to reframe cognitive distortions, Examples of cognitive distortions, and other areas related to cognitive distortions. This was an engaging way to help reinforce psychoeducation and to help client retain the information through examples and practicing. Pt was engaged in the game and with peers on collaborating to determine the answers. Identified one take away from the group as ?it?s important to be able to begin to identify and challenge use of all or nothing thinking patterns?. Benefited from rehearsing ways to challenge/reframe cognitive distortions and by gaining increased insight into examples/definitions of 10 most common cognitive distortions. Will continue in IOP to maintain gains and prevent decompensation. Narrative Note: []
--- NOTE | 2022-03-01 09:10 | BH.SGPN.GN ---
Behaviors/Verbalizations/Mental Status: []Eye contact fair to good, casually dressed, motor activity appropriate, speech normal rate and tone, mood anxious and depressed, constricted affect, thoughts linear and intact, no evidence of delusions or hallucinations. Reviewed pt's symptom tracker, denies any suicidal ideation, plan, or intent as of this date 03/01/22. Client Response/Progress/Benefit: []Pt responded well to session, attentive and providing supportive feedback throughout. Pt reports feeling anxious and depressed this morning as she has started the new semester and is feeling overwhelmed by her course load. Identified this has been an ongoing stressor and that she is struggling to find consistent balance in her daily life. Reported however making an effort to find small moments to practice self-care while in the lab yesterday. Identified this as a mental health win as she is often very all or nothing with work and self-care. Identified an additional win as taking time to practice gratitude the previous day as well. Appeared to benefit from group discussion and supportive environment. Recommended continued IOP tx to continue to improve consistency of healthy skill application, promote mood stability, as well as prevent decompensation. Narrative Note: []
--- NOTE | 2022-03-01 15:30 | BH.MDN ---
Multi-Disciplinary Note - Note 45-min Individual Time Started:: 10:19 Date: 03/01/22 Purpose of session/treatment goals addressed:: To work on goal #2 of pt's tx plan and to review progress since admission. Eye Contact:: Good Motor Activity:: Restless Appearance:: Casual Speech:: Appropriate Mood:: Anxious, Dysthymic Affect:: Congruent Thoughts:: Linear, Logical, Racing, No evidence of hallucinations/delusions noted Staff Interventions:: thought challenging, motivational interviewing, CBT techniques, strengths perspective, reviewed DSM-5, goal setting Client Response:: Pt responded well to session, open to meeting with therapist. Pt reports feeling ?terrible? today as she is overwhelmed by the amount of schoolwork she has this coming semester. Shared struggling to see where her functioning has improved as a result. Pt is feeling highly anxious and unsure today because of this and worrying that she will not be able to ?keep up?, stating that this would be a negative reflection on her if she were to have to drop a class. Struggled with challenging this perspective. Pt receptive to breaking down these stressors, looking at what is in pt's control, and ultimately discussing what would be more beneficial to managing her mental health in the present in order to help set pt up for longer term success and ability to manage academic and occupational stressors. Pt also identified the concerns and benefits pt has for two potential outcomes. By doing this, pt reported gaining awareness of conversations she wants to have with her professor and advisors to clarify expectations and reduce anxiety. Pt plans to talk with her advisor chino and hopes this will help pt express her needs and reduce overall stress levels. Risks/Concerns:: Pt denies any active suicidal ideations, plan, or intent as of 03/01/22. Progress Toward Goals/Plan:: Pt is making variable progress towards her tx goals AEB pt's decrease in DSM-5 scores by 18% since admission but her self-report of difficulties seeing consistent improvement in overall functioning. Pt is consistent with attendance, is doing well to more actively engage, and pt completes personal goals and homework. Pt has numerous stressors and unrealistic expectations of herself and her academic semester that are triggering anxiety. Pt also continues to struggle with feeling she must earn self-care and if her work is not to highest possible standards than she has not earned self-care, but she is working on this. Pt will continue IOP tx to promote mood stability, reduce negative thinking patterns, and increase ability to manage stressors. Time Stopped:: 11:25
--- NOTE | 2022-03-01 15:31 | BH.MTP_ITS ---
Treatment Plan Review Date of Admission:: 02/07/22 Date of Treatment Plan Review:: 03/01/22 Admitting Diagnoses:: 1. Major depressive disorder, recurrent, severe without psychosis. 2. Generalized anxiety disorder. 3. Cluster B traits Current Diagnoses:: 1. Major depressive disorder, recurrent, severe without psychosis. 2. Generalized anxiety disorder. 3. Cluster B traits Patient's Response to Treatment:: Pt has responded well to treatment AEB pt consistently attending IOP sessions and reduction of overall symptoms on the DSM-5 by 18% since admission. Pt contributes well during individual sessions and she is becoming more engaged during group sessions. Pt is working to improve consistency of coping skill application outside of IOP. She reports at times seeing improvements in overall mood, but struggles with seeing this on a c onsistent basis/giving herself credit for the progress she has made thus far. Pt continues to report feeling overwhelmed academically, but has been able to remain consistent in accomplishing her academic goals. Status of Current Problems and Symptoms: Pt continues to report symptoms of depression and anxiety, but her symptoms are decreasing. Pt's biggest stressors right now is academic pressure and feeling she most complete her school work to the standard of exceeding expectations.. Pt also reports struggling with negative core beliefs and self-criticism which reinforces depression. Pt also needs outpatient counseling as she cannot continue with the [facility], she is receptive to exploring providers. Problem #1 Problem Name:: Depression, hopelessness Status of Goals:: Objective 1- in progress. Pt?s DSM-5 scores for depression reduced by 12.5% since admission. Pt reports improved functioning, but her scores are still showing she experiences depressive symptoms more than half the days. Pt reports this is often in times of increased stress resulting in hopelessness and feeling inadequate. Pt is aware of and can identify several healthy coping skills for managing sx of depression; however, continues to struggle with consistent implementation. Pt self-reports resistance to making time for self-care and engaging in activities she finds enjoyable as she does not feel she has the time to justify doing so. Objective 2- in progress. Pt has gained awareness of cognitive distortions, negative core beliefs, as well as self-compassion. Pt can identify negative core beliefs reinforcing depression and perfectionistic attitudes and she is working on giving herself more credit. Team Recommendations:: Treatment tx encourages pt to continue working on this tx goal as pt has made progress, but she can continue to reduce intensity of depressive symptoms. Pt also can benefit from challenging distortions and replacing negative core beliefs patterns which will take time. Pt will continue keeping an accomplishment log and giving herself credit more consistently. Pt is also working on increasing self-awareness to better understand her values and interests. Problem #2 Problem Name:: Anxiety, rumination, avoidance Status of Goals:: Objective 1-in progress. Pt reports increased awareness of distortions, though struggles to combat distortions with therapist as pt is often convinced her distorted thought patterns are the most likely ?truth?. Pt recognizes this difficulty and impact it is having on continued tx progress, she reports willingness to continue to focus on addressing this. Pt working on staying in the moment and looking at the evidence when anxious. Objective 2- in progress. Pt?s DSM-5 scores for anxiety have decreased by 25% since admission. Pt reports using deep breathing, trying to apply positive self-talk statements, opposite action, stretching, and mindfulness skills. Team Recommendations:: Treatment team encourages pt to continue working on incorporating calming skills as well as thought challenging to reduce anxiety and ruminations.
--- NOTE | 2022-03-06 09:00 | BH.SGPN.GN ---
Behaviors/Verbalizations/Mental Status: [] Eye contact is good. Motor activity is appropriate. Appearance is casual. Speech is Appropriate. Mood is depressed. Affect is congruent. Thoughts are linear and logical. No evidence of psychosis. Reviewed daily check in sheet and no reports of suicidal ideations or intent. Client Response/Progress/Benefit: [] Pt was an active participant in group discussion. Attentive. Emotion for today is tired. Daily symptom tracker notes 4/5 for depression and 2/5 for anxiety. Mental health wins include increase self-care over the weekend. Shared how this was a goal that she had developed with her program therapist. Insight into how self-care can be beneficial for her in the future. I basically don't smile or have any fun. She is frequently at school or ruminating about school. Feels that she must be working on something productive throughout the day and if she is not than she is wasting her time. Identified with term type A. When discussing her self-care creative projects she was smiling and very engaged which group pointed out. Reports she is learning to give myself permission to not worry and enjoy things. Group provided feedback on the importance of self-care to prevent burnout and improve overall functioning. Benefited from group support, encouragement, and feedback. Will continue in IOP to prevent decompensation, increase health coping, and to improve functioning. Narrative Note: []
--- NOTE | 2022-03-06 10:06 | BH.SGPN.GN ---
Behaviors/Verbalizations/Mental Status: []Pt alert and oriented, casually dressed and groomed. Eye contact good. Motor activity appropriate. Speech within normal limits. Affect congruent, mood anxious, dysthymic. Thoughts linear, logical, no signs of hallucinations or delusions. Client Response/Progress/Benefit: []Pt was an active participant in group discussions, this is continues to be progress for pt. Participated with peers in experiential activity. Pt participated in an interactive discussion with peers in which they worked together to define what coping skills are. Group then identified unhealthy coping skills which included; isolating, not asking for help, procrastination, and lashing out on others or self. Group discussed what barriers commonly make using healthier coping skills more difficult. Pt displayed insight that she struggles with asking for help, lack of motivation, and procrastination which has been a barrier to choosing healthier coping skills in the past. Benefited from increased awareness and education the benefits of having a healthy coping repertoire and consequences of unhealthy coping on mental health and relationships. Will continue IOP tx to further promote healthy distress tolerance and stress management skills, improve self-care, and prevent decompensation. Narrative Note: []
--- NOTE | 2022-03-06 11:10 | BH.SGPN.GN ---
Behaviors/Verbalizations/Mental Status: []Client alert and oriented, casually dressed and groomed. Eye contact fair. Motor activity appropriate. Speech within normal limits. Affect congruent, mood anxious. Thoughts linear, logical, no signs of hallucinations or delusions Client Response/Progress/Benefit: []Client responded well to session, taking notes and contributing. Group discussed the different categories of coping skills which included distraction, emotional release, grounding, self-love, and thought challenging. Client participated in creating a coping skills ?menu? from the five categories of coping skills. Client's coping skill menu included: be creative, progressive muscle relaxation, temperature change, positive self-talk, and identifying daily wins. Client reported some of these skills are new and others are skills she wants to use more often. Appeared to benefit from increasing repertoire of healthy coping skills. Will continue tx to further reduce negative thinking, increase consistent use of healthy coping skills, and prevent decompensation.
--- NOTE | 2022-03-08 09:00 | BH.SGPN.GN ---
Behaviors/Verbalizations/Mental Status: []Pt alert and oriented, casually dressed. Eye contact good. Motor activity appropriate. Speech WNL. Mood anxious and depressed. affect constricted. Thoughts linear, logical, no signs of hallucinations or delusions. Reviewed pt's symptom tracker, no risk factors noted for 03/08/22. Denies any active SI. Client Response/Progress/Benefit: []Pt responded well to session, receptive to encouragement and thought challenging from the group. Pt reports feeling apathetic this morning. Pt shared school and keeping up with her course work has been overwhelming. Pt has some insight that her rigid, high expectations of self further increase the stress of graduate school. However, pt admits that she has a hard time challenging her all or nothing thoughts because she compares herself to her peers who seem to be fine in school. Group offered support and therapist encouraged pt to practice thought challenging today. Pt's mental health wins today included using opposite action yesterday and having a fun time with some of her classmates yesterday. Pt is showing progress with utilizing behavioral activation skills outside of IOP, but pt's self-talk is still reinforcing perfectionism. Pt will continue IOP tx to promote mood stability, combat distortions, and increase self-compassion. Narrative Note: []
--- NOTE | 2022-03-08 10:10 | BH.SGPN.GN ---
Behaviors/Verbalizations/Mental Status: []Client alert and oriented, casually dressed and groomed. Eye contact good. Motor activity appropriate. Speech within normal limits. Affect congruent, mood dysthymic and anxious. Thoughts linear, logical, no signs of hallucinations or delusions. Client Response/Progress/Benefit: []Client was an active participant in group discussions and activity. Attentive during psychoeducation. Client along with peers were able to identify several negatives on the picture given to the group. Client and peers also identified positives in the picture and made the connection that finding positives is much more difficult. Interactive discussion on the definition of perspective, how perspective is formed, and why perspective is important in treatment. Client along with peers also identified that perspective can either motivate and encourage treatment or become a barrier to receiving help. Client shared currently she has a more negative perspective towards life. Client stated current perspective has been impacted by current stress load/responsibilities, as well as negative core beliefs. Will continue in IOP to continue use of healthy coping, increase stress management skills, and prevent decompensation. Narrative Note: []
--- NOTE | 2022-03-08 12:14 | BH.MDN_ITS ---
Multi-Disciplinary Note - Note 60-min Individual Time Started:: 11:19 Date: 03/08/22 Purpose of session/treatment goals addressed:: Purpose of session was to address goals 1 and 2 from [facility]. Additionally discussed strategies for improving perspective challenging. Eye Contact:: Good Motor Activity:: Restless Appearance:: Casual Speech:: Pressured Mood:: Anxious, Depressed Affect:: Congruent Thoughts:: Linear, Logical, Racing, No evidence of hallucinations/delusions noted Staff Interventions:: thought challenging, psychoeducation on: - maintenance cycles, strengths perspective, goal setting Client Response:: Client reported she has been struggling with apathy and continues to feel she is not making as much progress with her mental health as she had hoped. Indicates often starting the day already feeling overwhelmed and defeated. Shared telling herself there is no way she is going to complete everything and mentally preparing for the day to be miserable. Acknowledged that this has become a self-fulfilling prophecy as she ends up struggling to get the motivation to complete her work, finds little enjoyment in what she is doing, and feels emotionally exhausted as a result. Insight that her perspective is a major contributing factor to maintaining depressive and anxiety cycles. Reports ?I want to be better, but I?m struggling to challenge my perspective because it feels like I?m just lying to myself?. Therapist attempted to work with client on perspective challenging, though client remains resistant to allowing herself to identify potential realistic alternative views as she is convinced her perspective is the only true way of viewing current reality. Recognizes this continues to reinforce hopelessness. 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 Identified that she enjoys discovering new insects and that it may help her start the day on a more positive note if she can begin with looking up and learning about a different insect each day. Additionally reports willingness to continue to keep an accomplishment log and review areas she deserves to give herself credit each day. Risks/Concerns:: Denies current suicidal ideation, plan or intention to date. future oriented. Progress Toward Goals/Plan:: Progress remains variable. Client negative core beliefs continue to impede consistent tx progress as pt struggles with allowing herself to think dichotomously or challenge perfectionistic and rigid thinking patterns. Continues to attribute self-worth with success which reinforces negative core beliefs and unrealistic expectations of self, ultimately maintaining depression and anxiety. Self-reports difficulties in allowing herself to be open to perspective challenging or establishing more realistic expectations of herself. 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 Pt has been willing to practice some skill application, including an accomplishment log, challenging herself to make more time for self- care, and beginning a morning positive focus. Client to continue IOP to challenge distorted/negative thought patterns, increase self-compassion, and prevent decompensation. Time Stopped:: 12:20
--- NOTE | 2022-03-10 09:00 | BH.SGPN.GN ---
Behaviors/Verbalizations/Mental Status: []Eye contact fair to good, casually dressed, motor activity appropriate, speech normal rate and tone, mood euthymic and anxious, congruent affect, thoughts linear and intact, no evidence of delusions or hallucinations. Reviewed pt's symptom tracker, denies suicidal ideation, denies any active plan, or intent as of this date 03/10/22. Future oriented. Client Response/Progress/Benefit: []Pt responded well to session, attentive and willing to process with group. Pt reports feeling nervous this morning as she has a busy day ahead of her; however, did well to focus on the positives in her day rather than how overwhelming her schedule feels. Recognizes this as progress and willing to give herself credit for this. Pt did well to identify current mental health wins which included following through with homework to start an accomplishment log as well as look at something positive each morning. Pt shared an additional win as receiving positive feedback from her advisor which she was then able to use to discredit thoughts that she is ?an imposter? in her field. Progress in improved mood and skill application. Appeared to benefit from group?discussion and supportive environment. Recommended continued IOP tx to continue to improve consistency of healthy skill application, promote mood stability and stress management, as well as prevent decompensation. Narrative Note: []
--- NOTE | 2022-03-10 10:10 | BH.SGPN.GN ---
Behaviors/Verbalizations/Mental Status: []Client alert and oriented, casually dressed and groomed. Eye contact good. Motor activity appropriate. Speech within normal limits, quiet. Affect congruent, mood euthymic. Thoughts linear, logical, no signs of hallucinations or delusions. Client Response/Progress/Benefit: []Pt engaged participant AEB providing contributions throughout group discussion and taking notes. Pt appeared to be attentive during psychoeducation about acceptance. Pt stated she believes acceptance is being at peace with the past. Reported acceptance is not pushing down things and ignoring trauma. Pt worked with group to identify common barriers to acceptance to include: fear of relapse, anxious thoughts, fear of stigma, and fear of being vulnerable. Pt worked with small group to identify benefits of acceptance. Pt seemed to benefit from increased awareness of the benefits of being able to accept things out of her control. Pt to continue IOP to increase consistent use of healthy coping skills, challenge distorted thoughts, and prevent decompensation.
--- NOTE | 2022-03-10 11:10 | BH.SGPN.GN ---
Behaviors/Verbalizations/Mental Status: []Pt alert and oriented, neatly dressed and groomed. Eye contact good. Motor activity appropriate. Speech within normal limits. Affect constricted, mood anxious. Thoughts linear, logical, no signs of hallucinations or delusions. Client Response/Progress/Benefit: []Pt responded well to session, engaged and providing examples. Pt engaged as group continued discussion on acceptance and how lack of acceptance can impact mental health. Pt and peers identified what makes acceptance challenging and pt completed a self-reflection exercise on what is hard to accept in pt's life. Pt shared it is hard to accept that her mental health will never be cured and that she can be successful in her career. Pt also identified how further lack of acceptance could lead to more harm for pt including: increased negative self-talk, self-doubt, and increased suffering. Group identified strategies to increase acceptance and pt selected thinking in the easley and self-compassion to help pt increase acceptance. Pt appeared to benefit from gaining insight and strategies to increase acceptance. Pt will continue IOP tx to promote mood stability, increase self-confidence, and reduce negative thinking patterns. Narrative Note: []
--- NOTE | 2022-03-13 09:00 | BH.SGPN.GN ---
Behaviors/Verbalizations/Mental Status: []Pt alert and oriented, neatly dressed and groomed. Eye contact good. Motor activity appropriate. Speech within normal limits. Affect constricted, mood dysthymic. Thoughts linear, logical, no signs of hallucinations or delusions. Reviewed pt?s symptom tracker, no risk for suicidal ideation, plan, or intent as of 03/13/22 Client Response/Progress/Benefit: []Pt responded well to session, attentive and engaged. Pt reports feeling melancholy this morning and shared that she almost canceled today for being too tired.Pt shared she cleaned her apartment yesterday which was a task pt had been avoiding and it improved her mood. Pt also has been using opposite action and communicating with her advisor to help manage the stress of the semester. Pt's biggest stressor is her school work as well as the expectations pt places on herself. Pt appeared to benefit from reflecting on her application of coping skills. Pt will continue IOP tx to promote use of healthy coping skills, improve self-compassion, and reduce negative thinking. Narrative Note: []
--- NOTE | 2022-03-13 10:10 | BH.SGPN.GN ---
Behaviors/Verbalizations/Mental Status: [] Eye contact is good. Motor activity is appropriate. Appearance is casual. Speech is Appropriate. Mood is euthymic. Affect is congruent. Thoughts are linear and logical. No evidence of psychosis. Client Response/Progress/Benefit: [] Client was an active participant during interactive group discussions. Attentive during psychoeducation on the six types of boundaries (physical, emotional, intellectual, sexual, time, and material) AEB note-taking. Client along with peers contributed to interactive discussion on defining what a boundary is in mental health. Group identified challenges to setting boundaries which included; fear of other's response, not knowing how to set a boundary, fear of rejection, fear of disappointing the other person, historic patterns, etc. Group identified the benefits to setting boundaries such as to help maintain identity, increased control, minimize negative influences, and increased confidence . Group and client discussed the mental health benefits to establishing boundaries at work, school, and home. Client benefited from increased awareness and insight on the importance/benefit to setting health boundaries. Will continue in IOP to increase management of anxiety, decrease negative thinking patterns and improve overall functioning. Narrative Note: []
--- NOTE | 2022-03-13 11:15 | BH.SGPN.GN ---
Behaviors/Verbalizations/Mental Status: [] Client alert and oriented, casually dressed and appropriately groomed. Eye contact good. Motor activity WNL. Speech within normal limits. Affect congruent, mood euthymic. Thoughts linear and intact. no signs of delusions or hallucinations. Client Response/Progress/Benefit: [] Client responded well to session AEB listening attentively to peers, providing input, as well as taking notes throughout. Client contributed throughout psychoeducation on different boundary setting styles with reporting connecting most with porous style of boundary setting. Participated in group discussion brainstorming various strategies for improving healthy boundary setting. Seemed to benefit from increased awareness of how different boundary styles can impact mental health. Will continue IOP tx to improve self worth, increase self-care, and prevent decompensation. Narrative Note: []
--- NOTE | 2022-03-17 09:10 | BH.SGPN.GN ---
Behaviors/Verbalizations/Mental Status: [] Eye contact is good. Motor activity is appropriate. Appearance is casual. Speech is Appropriate. Mood is anxious. Affect is full. Thoughts are linear and logical. No evidence of psychosis. Reviewed daily check in sheet and no reports of suicidal ideations or intent. Client Response/Progress/Benefit: [] Pt is a an active participant in group discussion. Attentive. Daily symptom tracker notes 05/24 for depression and 02/23 for anxiety. Pt reports several mental health wins which include completing household tasks which she has been neglecting. Smiling and engaged stating I'm starting to feel like I have a vulnerability assessment analyst on things reporting that she is not overwhelmed with mood, work, and school. With her free time she started to look ahead in her classes and began to catastrophize upcoming assignment in May. States that I know its going to be a horrible week and I'm going to be in anguish. Group worked to identify and challenge her cognitive distortions. Group also provided feedback on managing these anxious thoughts, ways to stay in the present, and ways to reframe. Benefited from group suppor, encouragment, and feedback. Will continue in IOP to maintain safety, prevent decompensation, and increase healthy coping. Narrative Note: []
--- NOTE | 2022-03-17 10:15 | BH.SGPN.GN ---
Behaviors/Verbalizations/Mental Status: []pt alert and oriented, casually dressed and groomed. Eye contact good. Motor activity appropriate. Speech within normal limits. Affect congruent, mood interested and stressed. Thoughts linear, logical, no signs of hallucinations or delusions.? Client Response/Progress/Benefit: []Pt responded well to session AEB contributing to discussion, taking notes, and listening attentively to others. Group discussed the benefits of managed anger and anger as a secondary emotion. Pt shared perspective on negatives from acting out in anger as damaged relationships and physical exhaustion.? Pt completed worksheet on anger triggers and personal warning signs of anger. Pt identified their biggest triggers as being disrespected, talking about politics, and people not respecting her boundaries.??Appeared to benefit from increased knowledge of the anger cycle as well as personal triggers. Will continue IOP tx to combat distorted thought patterns, improve mood stability, and reduce depressive symptoms.? Narrative Note: []
--- NOTE | 2022-03-17 11:10 | BH.SGPN.GN ---
Behaviors/Verbalizations/Mental Status: []Client alert and oriented, casually dressed and groomed. Eye contact fair. Motor activity appropriate. Speech within normal limits. Affect constricted, mood dysthymic and anxious. Thoughts linear, logical, no signs of hallucinations or delusions. Client Response/Progress/Benefit: []Pt was engaged throughout AEB contributing to group discussion and self-reflection. Group finished processing cues to anger worksheet. Pt contributed as group brainstormed healthy coping skills for better managing anger which included: music, walking/exercise, changing the environment, communicating with supports, and journaling. Pt stated she is going to work on pausing before reacting to help manage anger responses. Pt appeared to benefit from identifying different techniques to manage anger as well as gaining awareness of potential consequences of unmanaged anger. Will continue IOP tx to decrease anxious thought patterns, improve ability to set realistic expectations, and prevent decompensation.
--- NOTE | 2022-03-17 14:31 | BH.MDN ---
Multi-Disciplinary Note - Note 60-min Individual Time Started:: 13:00 Date: 03/17/22 Purpose of session/treatment goals addressed:: Purpose of session was to address goals 1 and 2 from MTP. Eye Contact:: Fair Motor Activity:: Restless Appearance:: Casual Speech:: Rambling Mood:: Anxious, Irritable, Depressed Affect:: Congruent Thoughts:: Racing, No evidence of hallucinations/delusions noted Staff Interventions:: thought challenging, CBT techniques, rapport building, strengths perspective, goal setting Client Response:: Client reported she has been working on her goal from previous individual session of perspective switching each morning by looking up a cute bug instead of thinking about how overwhelming her day will be. Client stated she did find the strategy to be helpful about 3-4 days out of the 7 days she used the skills. Client struggled with noting this as progress since the skill didn't work 7 out of 7 days. Therapist attempted to gently challenge client's perspective about seeking perfection in skills. Client agreed she does tend to focus on the days she feels like garbage. Client reported continuing to have difficult time with recognizing any positives in herself. Client shared she feels hopeless and having significant negative core belief thoughts about how she is never good enough. Client stated she has been doing the homework assignment of completing a accomplishment journal. Client reported she doesn't find it to helpful because doesn't believe she ever accomplishes enough when she sees her accomplishments from the day. With therapist help client agreed if she continues to focus on what she isn't accomplishing it will likely reinforce her depressed symptoms. Client expressed anxiety about upcoming public speaking assignment on Sunday. Created goal of practicing her speech in front her boyfriend this weekend at least 2 times. Reviewed healthy coping skills can use to manage anxious symptoms during speech.. Risks/Concerns:: Denies current suicidal ideation, plan or intention to date. future oriented. Progress Toward Goals/Plan:: Progress variable. Client negative core beliefs appear to be significant barrier to treatment progress. Client has difficulty allowing herself to recognize any positives or progress. Client continues to set expectations that are unrealistic. Client has insight her expectations are unrealistic however has difficulty with setting expectations that are achievable. Client noted doing better with staying up to date with her school work over the last week. Client to continue IOP to challenge distorted/negative thought patterns, increase consistent use of healthy coping skills, and prevent decompensation. Time Stopped:: 14:15
--- NOTE | 2022-03-20 09:05 | BH.SGPN.GN ---
Behaviors/Verbalizations/Mental Status: [] Eye contact is good. Motor activity is appropriate. Appearance is casual. Speech is Appropriate. Mood is anxious. Affect is congruent. Thoughts are linear and logical. No evidence of psychosis. Reviewed daily check in sheet and no reports of suicidal ideations or intent. Client Response/Progress/Benefit: [] Pt was an active participant in group discussion. Attentive. Daily symptom tracker notes 5/5 for anxiety and 4/5 for depression. Mental health wins include doing laundry and completing self-care. Elaborated more on how this benefits her mental health. Reports high anxiety today due to a presentation or give speech she has to give this afternoon. Verbalizing negative automatic thoughts and cognitive distortions about the speech which is less than 3 minutes. Group encouraged her to try it out infront of group which she did. Despite the positive feedback from peers she continued to verbalize cognitive distortions such as mind-reading and minimization. Group challenged and reframed her through and again provided positive feedback. Benefited from group support, encouragement, and feedback. Will continue in IOP to prevent decompensation, stabilize anxiety, and increase healthy coping skills. Narrative Note: []
--- NOTE | 2022-03-20 10:20 | BH.SGPN.GN ---
Behaviors/Verbalizations/Mental Status: []Client alert and oriented, casually dressed and groomed. Eye contact good. Motor activity appropriate. Speech within normal limits. Affect congruent, mood anxious, euthymic. Thoughts linear, logical, no signs of hallucinations or delusions. Client Response/Progress/Benefit: []Client receptive to session AEB providing more input than in previous group, listening attentively to others, and taking notes. Worked with group to brainstorm the positive and negative aspects of stress on physical and mental health. Group did well to identify the benefits of stress as well as the impact of distress on performance, relationships, and mental health. 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 Client reports when the stress overflows client reacts by sleeping to avoid, crying, and distracting herself with other things. Client seemed to benefit from increased awareness of current stressors and impact stress has on mental health. Recommended to continue IOP tx to stabilize moods, continue to promote thought challenging and self-compassion, and prevent decompensation. Narrative Note: []
== END 2022-03-21 23:59 ==
LOC: BHIOP 07:31
PROVIDERS: Referring Provider Psychiatry & Neurology Psychiatry; Visit Provider Psychiatry & Neurology Psychiatry
DX: F33.2 Major depressive disorder, recurrent severe without psychotic features (principal); F41.1 Generalized anxiety disorder; Z79.899 Other long term (current) drug therapy
CPT/HCPCS: S9480; 90834; 90837; 90853

== ENCOUNTER 2022-03-22 07:30 | Outpatient (RCR) | payer OTHER, SELFPAY ==
[2022-03-22 00:37] VITALS: BP 132/80; PULSE 101
--- NOTE | 2022-03-22 09:07 | BH.SGPN.GN ---
Behaviors/Verbalizations/Mental Status: []Eye contact fair to good, casually dressed, motor activity appropriate, speech normal rate and tone, mood depressed and anxious, congruent affect, thoughts linear and intact, no evidence of delusions or hallucinations. Reviewed pt's symptom tracker, denies reports of suicidal ideation, plan, or intent as of this date. Future oriented. Client Response/Progress/Benefit: []Pt responded well to session, attentive and willing to process with group. Pt reports feeling overwhelmed this morning. Attributes this to ongoing stress related to a recent academic presentation that pt feels did not go as she has planned. Shared trying to use positive self-talk and belly breathing to manage her anxiety prior to this but ultimately experienced a panic attack and had to give the speech later on in the class. Pt receptive of supportive feedback provided by the group but continues to struggle with significant negative core beliefs which impede her ability to accept imperfection and often reinforce rumination and anxiety, impeding progress. Appeared to benefit from group?discussion and supportive environment. Recommended continued IOP tx to continue to improve consistency of healthy skill application, promote anxiety management and self-compassion, as well as prevent decompensation. Narrative Note: []
--- NOTE | 2022-03-22 09:39 | BH.MDN_ITS ---
Multi-Disciplinary Note - Note 60-min Individual Time Started:: 10:28 Date: 03/22/22 Purpose of session/treatment goals addressed:: To address recent stressor reinforcing negative core beliefs and maintaining depression and anxiety. Reviewed strategies for challenging and creating new core beliefs. Eye Contact:: Good Motor Activity:: Appropriate Appearance:: Casual Speech:: Appropriate Mood:: Anxious, Depressed Affect:: Congruent Thoughts:: Linear, Logical, Racing, No evidence of hallucinations/delusions noted - several distortions present throughout discussion Staff Interventions:: thought challenging, psychoeducation on: - reviewed mistaken beliefs, CBT techniques, strengths perspective, goal setting - created small exposure goal to improve ability to manage potential failure/setbacks Client Response:: Pt responded well to session, open to meeting with therapist. 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 Reports that public speaking is difficult for her and that she began to panic and cry when it was her turn to present, asking the professor to move on to the next person. Reports she was able to eventually calm herself enough to present; however, feels this was a failure. Expressed beliefs that she needs to be a good presenter in order to have value in her field, be successful, and for other to take her work felix usly. Shared beliefs that being able to eventually present does not matter if she were not able to meet the expectations of herself. Shared after the class she went home and overate and laid in bed which only made her feel worse. Able to recognize that her response to this contributed to maintaining depression and negative thoughts about herself, as she shared feeling ?gross? and ?Uncomfortable? in her own skin afterwards. Receptive of discussion on challenging and working towards replacing previously identified negative core beliefs of ?I have to be perfect? and ?It?s not okay to make mistakes?, as well as ?My worth is dependent on my performance or achievements?. Noted it is difficult for her not to believe these statements are true, and provided insight that this may stem back to her childhood and pressure place on pt by her mother and grandmother. Discussed being punished for anything less than an ?A? grade and often talked down to if she did not achieve all A?s. Shared beliefs she has tied a sense of personal value and self-worth to her accomplishments since. Open to working with therapist on identifying ways to begin challenging this mindset and pt noted she would not think this way of her sister or a friend if they did not accomplish something. Continues to struggle significantly with applying this to her thoughts about self however and spent much of session trying to prove her mistaken beliefs are true. Receptive of discussion on using exposure therapy to begin improving comfort levels surrounding imperfection by learning to make mistakes and sit with them without trying to fix the mistake. Identified that doing so with her art would be a good place to start. Plans to practice by creating a piece of art and intentionally messing up one area as a means of learning to accept mistakes and grow more comfortable with them. Risks/Concerns:: Pt denies any suicidal ideations or thoughts of as of this date, 03/22/22. Future oriented Progress Toward Goals/Plan:: Pt progress remains variable. She has improved insight into her mistaken beliefs and how these reinforce unrealistic expectations which maintain depression and anxiety. Pt is continuing to report improved use of self-care and is keeping a daily accomplishment log; however, reports she still struggles with giving herself credit or believing the small accomplishments matter. Pt reports that she continues to struggle with feeling overwhelmed and not believing in herself, appearing to be reinforced by negative core beliefs. Pt has however seen an improvement in overall group contribution and willingness to consider challenging her thoughts. Pt will continue IOP tx to further improve mood stability, reduce depressive sx, and prevent decompensatio n. Time Stopped:: 12:10
--- NOTE | 2022-03-27 09:05 | BH.SGPN.GN ---
Behaviors/Verbalizations/Mental Status: []Eye contact good, casually dressed, motor activity appropriate, speech normal rate and tone, mood euthymic and anxious, congruent affect, thoughts linear and intact, no evidence of delusions or hallucinations. Reviewed pt's symptom tracker, suicidal ideation within baseline, pt denies plan, or intent as of this date. Future oriented. Client Response/Progress/Benefit: []Pt responded well to session, attentive and willing to process with group. Pt reports feeling apprehensive this morning as although she had a positive weekend, she is anxious about a speech schedule for the coming week. Somewhat receptive of thought challenging/anxiety management strategies; however, continues to be reluctant to believe these skills will be effective. Pt did well to identify current mental health wins from the weekend, which included being able to spend time with her long-distance boyfriend. Shared practicing mindfulness skills to remain present throughout as well. Additional win noted as taking time to cook a meal over the weekend rather than ordering out. Shared this is not something she often does, but felt like an accomplishment. Appeared to benefit from group?discussion and supportive environment. Recommended continued IOP tx to continue to improve healthy skills, promote mood stability and thought challenging, as well as prevent decompensation. Narrative Note: []
--- NOTE | 2022-03-27 10:10 | BH.SGPN.GN ---
Behaviors/Verbalizations/Mental Status: [ ] Client alert and oriented, neatly dressed and groomed. Eye contact normal. Motor activity appropriate. Speech within normal limits. Affect congruent, mood euthymic. Thoughts linear, logical, no signs of hallucinations or delusions. Client Response/Progress/Benefit: [ ] Client was an active participant AEB contributing to discussion, taking notes, and engaging in group activity. Connected with the topic of pitfalls and listened to group discussion on barriers that prevent from choosing a healthier path to mental wellness. Group worked together to identify examples of personal pitfalls which included; being in denial, emotional outbursts, and procrastination. Client identified emotional distress as a pitfall she personally has struggled with. Client benefited from group as client learned to better identify potential barriers to improving mental health symptoms. Client will continue IOP tx to prevent decompensation, gain healthy support, and improve daily functioning. Narrative Note: []
--- NOTE | 2022-03-27 11:10 | BH.SGPN.GN ---
Behaviors/Verbalizations/Mental Status: [] Client alert and oriented, casually dressed and groomed. Eye contact good. Motor activity appropriate. Speech within normal limits. Affect congruent, mood euthymic. Thoughts linear, logical, no signs of hallucinations or delusions. Client Response/Progress/Benefit: [] Client receptive of session, engaged throughout AEB actively listening and contributing to discussion, as well as taking notes. Client participated in the experiential activity and did well to communicate ideas with peers and manage emotions. Client and group processed how the emotions and perspective of the group impacted the activity. Group worked together to identify different coping skills to help manage pitfalls. Client identified pitfalls they struggle with and shared wanting to work on strategies of reaching out, assessing what's causing pitfall, and reaching out to supports to overcome them. Benefited from identifying personal pitfalls and strategies to overcome these pitfalls. Will continue IOP tx to increase overall functioning, improve self-care and emotion regulation, and increase the use of healthy coping skills. Narrative Note: []
--- NOTE | 2022-03-29 09:05 | BH.SGPN.GN ---
Behaviors/Verbalizations/Mental Status: []Eye contact good, casually dressed, motor activity appropriate, speech normal rate and tone, mood depressed and anxious, congruent affect, thoughts linear and intact, no evidence of delusions or hallucinations. Reviewed pt's symptom tracker, pt denies suicidal ideation, plan, or intent as of this date. Future oriented. Client Response/Progress/Benefit: []Pt responded well to session, attentive and willing to process with group. Pt reports feeling terrible this morning. Pt receptive to supportive feedback provided by the group, however continues to struggle with internalizing and believing encouraging statements, often disqualifying positives. Shared current emotion is related to feeling overwhelmed and unable to her current stress load. Continues to struggle with unrealistic expectations of herself and thought challenging which makes progress limited. Pt did well to identify wins when prompted, these included maintaining consistent with her morning self-care routine. Additional win noted as asking for help when her computer broke. Continues to struggle with minimizing accomplishments. Recommended continued IOP tx to continue to improve self-compassion, promote mood stability, as well as prevent decompensation. Narrative Note: []
--- NOTE | 2022-03-29 11:10 | BH.SGPN.GN ---
Behaviors/Verbalizations/Mental Status: []Pt alert and oriented, neatly dressed and groomed. Eye contact good. Motor activity appropriate. Speech within normal limits. Affect constricted, mood anxious. Thoughts linear, logical, no signs of hallucinations or delusions. Client Response/Progress/Benefit: []Pt was engaged during discussion and willing to complete the worksheet challenging them to develop a personal SMART goal. Pt chose the goal of having a discussion with one of classmates about a planning issue. Pt stated this will benefit them by helping pt to get her needs met and improve communication. Pt identified barriers which included fear, minimizing, rationalizing, and negative past experiences. Pt receptive to identifying solutions for these barriers and willing to begin working on this goal. Benefited from this group by developing a short-term SMART goal related to mental health. Will continue IOP tx to improve daily functioning, reduce negative thinking patterns, and increase symptom management skills. Narrative Note: []
--- NOTE | 2022-03-29 12:10 | PCM.BH.PN ---
Progress Note Progress Note: In the history of Present Illness/Interim History: The patient is a 21-year-old single, female with a history of depression and anxiety who is seen in follow-up at the [facility] behavioral health IOP program. I last saw the patient about 1 month ago. The patient is still depressed she says may be with slight improvement and still struggles with anxiety and perfectionism and other cognitive distortions related especially to schoolwork and her self-image. She does feel more stable somewhat and somewhat less depressed. She feels she is benefiting and from the IOP program and learning valuable skills. She feels that it is hard to apply the skills on a consistent basis to affect change. She has been consistent in attendance and engaged in treatment. No panic attacks. She denies passive thoughts of , suicidal ideation, homicidal ideation, hallucinations or delusions. Current Psychiatric Medications: [] Zoloft 50 mg p.o. daily (increased 3 weeks ago) Mental Status Examination: [] The patient is a 21-year-old female who's hair is dyed red near the ends and appears normal for stated age and is casually dressed with good hygiene. She is ambulatory with a normal gait and has no psychomotor agitation or retardation. She is cooperative during the interview. Eye contact is always poor when she is speaking but she does have good eye contact when she is listening to others speak. Speech is normal rate and rhythm and fluent with no pressure. Mood is depressed. Affect is approaching full and normal. Thought processes goal-directed and organized. Thought content: There is no evidence of passive thoughts of , suicidal ideation, plan for suicide, homicidal ideation, hallucinations or delusions. The patient struggles with applying the idea she is learning to correct her cognitive distortions. Reality testing is intact. Intelligence is above average. Judgment is intact. Insight is fair and improving. Impulsivity is moderate. Diagnoses: [] 1. Major depressive disorder, recurrent, severe without psychosis 2. Generalized anxiety disorder 3. Cluster B traits 4. Primary support and school/career issues Plan: [] The patient will continue the IOP program at [facility] as the structure, support, education and group therapy will hopefully prevent worsening of the patient's symptoms. She felt safe during the interview and if it anytime she does not feel safe she will let us know or go to the emergency room. The risks, options, possible complications and side effects of the medication were again discussed with the patient and she understands accepts this. The patient does not want to add Wellbutrin to her regimen. She agrees to probably increase her Zoloft to 100 mg p.o. daily but may wait to see her outpatient provider to discuss this in a week. She does agree to have a prescription sent in for Zoloft 100 mg p.o. daily and hopefully she will increase this soon. She will continue to follow-up with her outpatient providers and I will see the patient in follow-up while she is in the IOP program.
--- NOTE | 2022-03-29 15:05 | BH.MDN_ITS ---
Multi-Disciplinary Note - Note 45-min Individual Time Started:: 10:20 Date: 03/29/22 Purpose of session/treatment goals addressed:: To address current stressors impacting anxiety and reinforcing negative core beliefs, as well as discuss strategies to help cope with this stressors. Utilized role play and practiced grounding techniques in session to aid client in reducing anxiety associated with upcoming stressor. Eye Contact:: Good Motor Activity:: Appropriate Appearance:: Casual Speech:: Appropriate Mood:: Anxious Affect:: Congruent Thoughts:: Linear, Logical, No evidence of hallucinations/delusions noted Staff Interventions:: motivational interviewing, CBT techniques, strengths perspective, other - Utilized role play and practiced grounding techniques in session Client Response:: Pt responded well to session, open to meeting with therapist. 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 Pt had previously reported having a panic attack and became tearful when it was her turn to practice the speech in class last week, so her negative thinking and anticipatory anxiety has increased. Discussed feeling ?terrible? about it and had become tearful and panicked when practicing on the phone with her boyfriend the night before. Receptive of working with therapist to practice calming skills in session to reduce anxiety associated with talking about public speaking. Spent time focusing on discussing why the material she is presenting is important to her and casually reviewing the material in her speech, becoming visibly less anxious in doing so. Shared feeling calmer when thinking of it as more of a conversation and reminding herself to focus on her material rather than the audience. Pt reported feeling relief and less anxious when able to break the content down and lower the stakes for herself. Able to successfully practice the three minute speech several times with therapist, becoming less anxious and able to slow her herself down more each time. Shared connecting with use of stretching and visualization prior to beginning the speech as well. Pt able to discuss her research and talk about herself with therapist with limited to no use of self- deprecation, which is progress. Reports plans to practice self-care between group and her class, as well as try using skills reviewed in session when presenting this afternoon. Risks/Concerns:: Pt denies any suicidal ideations or thoughts of . Progress Toward Goals/Plan:: Pt is making variable progress towards tx goals. This is evidenced by self-report of improved self-care and use of daily positive affirmations and accomplishment journal, as well as decreased severity and duration of self-deprecation and panic. Pt continues to struggle with significant negative core beliefs, specifically beliefs that her value is tied to her accomplishments. This continues to impede consistent progress, as anytime pt feels she performs below her expectations her mental health is significantly impacted. Additionally, self-reports difficulties in consistently applying healthy coping skills, which further impedes consistent progress. Does appear more open to challenging her thoughts and practicing self-compassion than in prior sessions which is progress. Pt will continue IOP tx to reinforce healthy coping skills, further promote a growth mindset, and establish aftercare. Time Stopped:: 11:06
--- NOTE | 2022-03-31 09:10 | BH.SGPN.GN ---
Behaviors/Verbalizations/Mental Status: []Eye contact good, casually dressed, motor activity appropriate, speech normal rate and tone, mood depressed and anxious, congruent affect, thoughts linear and intact, no evidence of delusions or hallucinations. Reviewed pt's symptom tracker, pt denies suicidal ideation, plan, or intent as of this date. Future oriented. Client Response/Progress/Benefit: []Pt responded well to session, attentive and willing to process with group. Pt reports feeling disconnected this morning which she believes is related to a persistent sinus infection making it difficult to focus at times. Pt did well to identify wins, which included successfully presenting a speech in her public speaking class. Noted feeling more confident and accomplished afterward, which she celebrated by taking time for self-care. Additional win noted as attending a meeting for a local art group, which pt reports was a positive experience and she plans to go back to. Current stressor noted as several tasks she has coming up in the next week and not feeling motivated to complete these. Did well to identify skills she can use to improve motivation and practice self-compassion for needing to take on fewer tasks this week while feeling ill. Appeared to benefit from group?discussion and supportive environment. Progress noted in increased ability to give herself credit without disqualifying the accomplishment. Recommended continued IOP tx to continue to improve consistent use of healthy stress management skills, promote mood stability, as well as prevent decompensation. Narrative Note: []
--- NOTE | 2022-03-31 10:10 | BH.SGPN.GN ---
Behaviors/Verbalizations/Mental Status: [] Client alert and oriented, casually dressed and groomed. Eye contact good. Motor activity appropriate. Speech within normal limits. Affect congruent, mood euthymic. Thoughts linear, logical, no signs of hallucinations or delusions. Client Response/Progress/Benefit: [] Client responded well to session, contributing to discussion and engaged during the activity. Attentive during discussion on the quote and shared Relationships can impact change because I worry about what the other person will do if I try to change. Group identified the benefits of change which included: personal growth, improved relationships, more confidence, and progress towards goals. Worked with the group to identify barriers to change, which included: uncomfortable emotions such as anxiety, lack of motivation, others's opinions, and negative thinking. Client participated along with group in activity where they identified and discussed the emotions related to change. Client reported how feelings of anxiety and worry has stopped her from change. Benefited from increased awareness and understanding of emotions, benefits, and barriers related to change. Will continue IOP tx to continue to increase overall functioning and increase emotional regulations skills. Narrative Note: []
--- NOTE | 2022-03-31 11:10 | BH.SGPN.GN ---
Behaviors/Verbalizations/Mental Status: [] Client alert and oriented, casually dressed and groomed. Eye contact good. Motor activity appropriate. Speech within normal limits. Affect congruent, mood euthymic. Thoughts linear, logical, no signs of hallucinations or delusions. Client Response/Progress/Benefit: [] Client responded well to session, attentive. Did well to process activity and work with group to relate the strategies used to overcome barriers in the activity to managing change in own life. Client identified she would like to focus on challenging her cognitive distortions. Identified being in the action stage. Client stated her goal is to complete a thought log each day. Appeared to benefit from identifying a small goal to work towards. Client will continue IOP tx to increase emotional regulation, gain healthy coping skills, and improve daily functioning. Narrative Note: []
--- NOTE | 2022-04-05 09:00 | BH.SGPN.GN ---
Behaviors/Verbalizations/Mental Status: [] Eye contact is good. Motor activity is appropriate. Appearance is casual. Speech is Appropriate. Mood is euthymic. Affect is full. Thoughts are linear and logical. No evidence of psychosis. Reviewed daily check in sheet and no reports of suicidal ideations or intent. Client Response/Progress/Benefit: [] Pt participated at times during the group discussions. Attentive. Daily symptom tracker notes 5 for depression and /5 for anxiety. Provided appropriate feedback. Emotion for today is ?numb?. Mental health wins is ?advocating for myself?. Shared that she was sick last week and gave herself permission to rest and seek medical treatment rather than push through illness and burn self out. Challenged perfectionistic beliefs and accepted that rest was needed. While she is slightly behind on schoolwork, she accepts that her rest was needed and is not ruminating or regretting her break. Practicing self-care. Benefited from group support, encouragement, and feedback. Will continue in IOP to prevent decompensation, stabilize mood, and increase health coping. Narrative Note: []
--- NOTE | 2022-04-05 10:14 | BH.SGPN.GN ---
Behaviors/Verbalizations/Mental Status: [ ] Client alert and oriented, neatly dressed and groomed. Eye contact good. Motor activity appropriate. Speech normal. Affect congruent, mood euthymic. Thoughts linear, logical, no signs of hallucinations or delusions. Client Response/Progress/Benefit: [] Client was an engaged participant AEB client listening attentively to others and participating throughout. Attentive during psychoeducation on communication styles. Assisted group with identifying barriers of effective communication which included: assuming, shutting down, dominating the conversation, and getting emotional. Client identified she most often uses passive aggressive communication with her stating that she gets a emotional release from it without someone blowing up at her. Client reports being passive-aggressive impacts her by overall needs not being met and previous partners getting upset with her. Benefited from increased awareness of different communication barriers, styles, and the importance of communicating effectively to improve mental wellness. Will continue IOP tx to improve emotional regulation skills, increase self-awareness, and prevent decompensation. Narrative Note: []
--- NOTE | 2022-04-05 11:14 | BH.SGPN.GN ---
Behaviors/Verbalizations/Mental Status: [] Client alert and oriented, casually dressed and groomed. Eye contact good. Motor activity appropriate. Speech within normal limits. Affect congruent, mood euthymic. Thoughts linear, logical, no signs of hallucinations or delusions Client Response/Progress/Benefit: [] Client responded well to session AEB client listening attentively to others and providing input during group discussion. Client did well in the activity to be assertive and ask for feedback. Recognizes if group wasn't assertive in activity, they wouldn't have been successful. Discussed with group communication strategies used to make activity successful. Attentive during psychoeducation on interpersonal DBT skill SHARI. Client set a goal to work on expressing and asserting her needs with using I statements more often. Client seemed to benefit from increasing awareness of healthy strategies to improve communication. Will continue IOP tx to improve emotional regulation skills, increase self-awareness, and self worth. Narrative Note: []
--- NOTE | 2022-04-07 13:27 | BH.MDN_ITS ---
Multi-Disciplinary Note - Note 60-min Individual Time Started:: 11:15 Date: 04/07/22 Purpose of session/treatment goals addressed:: To address tx goal #2, as well as identify strategies increase effective communication skills in order to advocate for her needs within her relationship. Eye Contact:: Good Motor Activity:: Appropriate Appearance:: Casual Speech:: Appropriate Mood:: Euthymic, Anxious Affect:: Congruent Thoughts:: Linear, Logical, No evidence of hallucinations/delusions noted Staff Interventions:: thought challenging, psychoeducation on: - healthy communication strategies, CBT techniques, discharge planning, strengths perspective Client Response:: Pt responded well to session, open to meeting with therapist. Pt reports she had a lot of stressors yesterday, but pt expressed feeling proud of her self for how she is coping and her ability to practice self-compassion throughout. Pt reported challenging temptations to assume the entire day would ?be a waste? following the initial stress, but did well to instead tell herself ?No, it?s going to be okay. There are still good things that can come from today?. Shared feeling especially proud of her ability to combat personalization and catastrophizing thoughts when experiencing a setback with her research experiment. Able to identify this as progress and shared beliefs she has seen improvements in her ability to prioritize self-care, practice self-compassion, and use opposite action when tempted to isolate or give up. Pt still struggles with unrealistic/high expectations of herself which may present difficulties in maintaining consistent progress. Pt went on to discuss wanting work on better communicating with her boyfriend, indicating that this is especially difficult for pt when she feels a negative core belief is activated. Pt processed a recent situation that triggered a negative core belief and past relationship trauma. Shared this leading to pt second-guessing her boyfriend?s commitment to relationship and wanting to discuss her concerns, as well as explain the past relationship trauma these concerns stem from. Pt recognizes that she is often hurt when people do not show the same thoughtfulness and initiative to make plans that pt would. Discussed how this can be a set up for the relationship. Pt willing to communicate with her boyfriend about her expectations and communication needs during his visit this weekend. Pt was able to talk about these stressors now without crying and pt has improved with applying growth mindset approaches to her stressors as well. Risks/Concerns:: Pt denies any suicidal ideations, plan, or intent as of 04/07/22. Future oriented. Progress Toward Goals/Plan:: Pt continues to make progress towards her tx goals AEB pt's report of using healthy coping skills on a much more consistent basis, improved self-compassion, reduced self-deprecation, and reduced crying spells and panic. Pt continues to struggle with unrealistic expectations and self-doub t, but pt is aware of this and actively working on it per her report. Pt also endorses ruminations, frequent personalizing, and difficulty communicating needs at times. Pt will continue IOP tx for one more week to reinforce healthy coping skills, continue to combat distortions, and help pt with completing discharge planning. Time Stopped:: 12:16
--- NOTE | 2022-04-12 09:00 | BH.SGPN.GN ---
Behaviors/Verbalizations/Mental Status: []Pt alert and oriented, neatly dressed and groomed. Eye contact good. Motor activity appropriate. Speech within normal limits. Affect congruent, mood euthymic and anxious. Thoughts linear, logical, no signs of hallucinations or delusions. Reviewed pt?s symptom tracker, no risk for suicidal ideation, plan, or intent as of 04/12/22 Client Response/Progress/Benefit: [] Pt responded well to session, attentive and engaged. Pt reports feeling tired today due to increase in school work, but overall pt feels she is spiraling less. Pt shared her wins today as having a direct, vulnerable conversation with her boyfriend that went well. Pt also has been getting school work done and allowing herself more breaks which is a significant change from admission. Pt's stressor is school, but pt is feeling more confident in her ability to cope. Pt appeared to benefit from reflecting on her personal growth and use of skills. Pt will continue IOP tx to promote gains and reinforce healthy coping skills. Narrative Note: []
--- NOTE | 2022-04-12 10:15 | BH.SGPN.GN ---
Behaviors/Verbalizations/Mental Status: [] Eye contact is good. Motor activity is appropriate. Appearance is casual. Speech is Appropriate. Mood is anxious. Affect is conguent. Thoughts are linear and logical. No evidence of psychosis. Client Response/Progress/Benefit: [] Pt participated at times during group discussion. This group was very heavy on psychoeducation and pt was attentive AEB by note-taking, providing input when appropriate, and asking questions. Participated in interactive discussion in which peers attempted to define and give examples of automatic negative thoughts and cognitive distortions. Therapist presented and reviewed ten common cognitive distortions (All or Nothing thinking, mental filter, jumping to conclusions, emotional reasoning, labeling, overgeneralization, disqualifying the positives, catastrophizing, shoulds, and personalization). Benefited from increased understanding of cognitive distortions and how they impact automatic negative thoughts. Will continue in IOP to prevent decompensation, increase healthy coping skills, and to stabilize mood. Narrative Note: []
--- NOTE | 2022-04-12 11:10 | BH.SGPN.GN ---
Behaviors/Verbalizations/Mental Status: []Eye contact is good. Motor activity is appropriate. Appearance is casual. Speech is WNL. Mood is anxious. Affect is congruent. Thoughts are linear and logical. No evidence of psychosis. Client Response/Progress/Benefit: []Pt engaged participant AEB providing input during small group discussion and engaging in activity. Activity involved working with peers to answer questions related to psychoeducation on cognitive distortions and practicing reframing distorted thoughts. Pt collaborated with the group to determine the answers. Identified cognitive distortion struggles with the most as all or nothing thinking and personalization. Benefited from rehearsing ways to challenge/reframe cognitive distortions and by gaining increased insight into examples/definitions of 10 most common cognitive distortions. Will continue in IOP to improve ability to recognize accomplishments, continue use of healthy coping skills, and prevent decompensation.
--- NOTE | 2022-04-14 11:41 | BH.COMM_ITS ---
Communication Note - Communication with Client Communication Note: Pt unable to attend IOP tx or individual session today due to scheduling conflict. Reports she is still planning to d/c from the program today and has an intake appointment for individual counseling at [facility] on 04/17/22.
--- NOTE | 2022-04-14 11:43 | BH.DS ---
Discharge Summary - Demographics Date of Admission:: 02/07/22 Discharge Date: 04/14/22 Presenting Problems at Admission:: The patient is a 21-year-old single female with a history of depression and anxiety who was referred to the [facility] behavioral health IOP program by her outpatient psychologist. She reports worsening depression and anxiety since September 2021 when she began her graduate school program. She states I cannot make myself face the day and describes that she has to lie in bed for an hour crying in order to try to get up in the morning. 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 At time of intake pt endorses feeling depressed, sad, hopelessness, worthlessness, anhedonia, decreased concentration, rumination, avoidance, and lack of interest in activities she enjoys. denies OCD, eating disorder, trauma or PTSD. She also denies suicidal ideation or plan for suicide but does admit to passive thoughts of on occasion. She denies homicidal ideation, hallucinations, delusions or symptoms of toshia ever. Pt reports that current sx are impacting her academically, socially, and impeding her ability to find value in herself. Discharge Diagnoses:: 1. Major depressive disorder, recurrent, severe without psychosis. 2. Generalized anxiety disorder. 3. Cluster B traits Reason for Discharge:: Pt has met her treatment goals AEB her reduction of DSM-5 scores for anxiety, OCD, depression, and anger. Pt also reports improved emotional regulation, thought challenging, and functioning. Pt no longer meets criteria for IOP level of tx and will continue with outpatient counseling and IOP aftercare. - Treatment Progress During Treatment & Response: Pt has made significant strides since starting IOP as shown by her improved mood, reduced symptoms by 35% overall, and increased ability to manage negative thinking. Pt's depression decreased by 50% since admission and anger decreased by 50%. When Pt started IOP she was experiencing significant anxiety and depression that was keeping pt from living life and effecting her academically. Now, Pt can catch and manage thoughts that reinforced anxiety and self-doubt, use healthy coping skills more easily, and she feels more confident in her abilities. 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 Pt was active in both group and individual therapy sessions. Pt contributed to group discussions, offered emotional support to peers, and followed through with her goals. In individual sessions, Pt was receptive to feedback, consistent with homework, and willing to push herself despite anxiety. As a result, pt saw an 83% reduction in anxiety sx. Pt plans to attend [facility] aftercare as well as follow up with her outpatient providers. Issues Still to be Addressed:: Negative core beliefs, communication and conflict resolution, setting/maintaining boundaries and realistic expectations of self and others, healthy balance of work/school and personal life, and self-confidence. Discharge Recommendations/Instructions:: Pt will follow up with her outpatient psychiatrist at [place] [id number] for medication management, recently had an appointment earlier this month. Pt is establishing with Meli Lopes for individual counseling at [facility] and has an appointment on 04/17/22. Pt will start [facility] aftercare group on 04/20/22 which lasts eight weeks. Discharge Handout: Complete Discharge Handout with client on aftercare options and continuity of care.
== END 2022-04-14 10:33 | disposition home or self-care (01) ==
LOC: BHIOP 07:30
PROVIDERS: Referring Provider Psychiatry & Neurology Psychiatry; Visit Provider Psychiatry & Neurology Psychiatry
DX: F33.2 Major depressive disorder, recurrent severe without psychotic features (principal); F41.1 Generalized anxiety disorder; Z79.899 Other long term (current) drug therapy
CPT/HCPCS: S9480; 90834; 90837; 90853

== ENCOUNTER 2022-04-27 15:07 | Outpatient (RCR) | payer BC, SELFPAY ==
--- NOTE | 2022-04-27 15:35 | BH.MTP ---
Master Treatment Plan - Patient Information Program Physician:: Dr. Allison Pack Primary Therapist:: APPLE Beck - Psychiatric Diagnoses Psychiatric Diagnoses:: 1. Major depressive disorder, recurrent, severe without psychosis. 2. Generalized anxiety disorder. 3. Cluster B traits Diagnosis Code(s):: F 33.2 - Estimated LOS Estimated LOS (in weeks):: 8 Problem/Goal #1 - Problem/Goal #1 Stated Goal:: client will maintain or see a reduction in symptoms AEB client score on the DSM 5 cross-cutting measure and improve client's daily functioning. - Objectives Objective #1 Stated Objective: Client will continue to consistently apply healthy coping skills to maintain progress made in IOP tx. Interventions: Through group therapy, client will review warning signs and triggers as well as healthy coping skills learned in IOP tx to successfully maintain gains while transitioning into outpatient therapy. Discharge Criteria: Client will have accomplished this goal when client's score on the DSM-5 cross-cutting measure has either maintained or reduced over an 8 week period. Target Date: 06/22/22 Review Date: 05/25/22 Objective #2 Stated Objective: Client will learn and utilize 2-3 maintenance strategies to prevent decompensation from original IOP DSM-5 scores. Interventions: Through group therapy, client will be provided with education on healthy maintenance behaviors, relapse prevention techniques, and healthy coping strategies. Discharge Criteria: Client will have accomplished this goal when can report using at least 2 maintenance skills to prevent decompensation compared to original IOP DSM-5 scores Target Date: 06/22/22 Review Date: 05/25/22
--- NOTE | 2022-04-27 15:40 | BH.DS_ITS ---
Discharge Summary - Demographics Date of Admission:: 04/27/22 Discharge Date: 05/18/22 Presenting Problems at Admission:: Pt discharged from IOP tx and transitioned to [facility] aftercare to maintain gains Pt made in [facility] and to reinforce healthy coping skills. At admission to [facility] aftercare, pt continued to report some symptoms of depression and anxiety, but of reduced intensity. Pt was also experiencing the stress of figuring out the next step for her future, relationship issues, and ongoing academic stress. Discharge Diagnoses:: 1. Major depressive disorder, recurrent, severe without psychosis. 2. Generalized anxiety disorder. 3. Cluster B traits Reason for Discharge:: Pt stopped attending [facility] aftercare and her last day was 04/27/22. Pt discharged as pt reported her schedule conflicted with ability to follow the attendance requirement for the program. - Treatment Progress During Treatment & Response: Pt limited as pt attended [facility] aftercare once. Pt self-reported she was taking medication as prescribed and she was following up with her outpatient counseling which was part of her [facility] discharge plan. Issues Still to be Addressed:: Pt could benefit from continued reinforcement of healthy coping skills, challenging distorted thought patterns and working through her perfectionistic negative core beliefs. Discharge Recommendations/Instructions:: Pt will follow up with her outpatient psychiatrist at [place] [id number] for medication management. Pt will continue with Meli Lopes for individual counseling at [facility]. Discharge Handout: Complete Discharge Handout with client on aftercare options and continuity of care.
== END 2022-05-18 11:35 | disposition home or self-care (01) ==
LOC: BHOG 15:07
PROVIDERS: PCP Psychiatry & Neurology Psychiatry; Referring Provider Psychiatry & Neurology Psychiatry; Visit Provider Psychiatry & Neurology Psychiatry
DX: F33.2 Major depressive disorder, recurrent severe without psychotic features (principal); F41.1 Generalized anxiety disorder
CPT/HCPCS: 90853

== ENCOUNTER → 2022-10-31 | Outpatient (CLI) | payer BC, SELFPAY ==
[2022-10-31 15:09] LABS: Hematocrit 42.1 % (37-47); Hemoglobin 13.9 g/dL (12.0-15.0); Mean Corpuscular Volume 90.9 fL (81-99); Mean Platelet Vol. 11.3 fl (6.2-12.0); Platelet Count 284 K/mm3 (150-450); Red Blood Count 4.63 M/mm3 (4.2-5.4)
[2022-10-31 15:57] LABS: Anion Gap 4 (5-15); BUN 10 mg/dL (7-18); Calcium,Total 8.9 mg/dL (8.5-10.1); Chloride 111 mmol/L (98-107); Creatinine, Serum 0.91 mg/dL (0.55-1.02); EST Glomerular Filtration Rate 81 mL/min (>60); Est Glom Filt Rate - Afr Amer 98 mL/min (>60); Glucose 85 mg/dL (74-106); Iron 144 ug/dL (50-170); Iron Binding Capacity,Total 343 ug/dL (250-450); Potassium 3.6 mmol/L (3.5-5.1); Sodium Level 140 mmol/L (136-145); Thyroid Stim Hormone (TSH) 1.43 uIU/mL (0.358-3.74)
[2022-10-31 16:14] LABS: Vitamin B12 242 pg/mL (211-911); Vitamin D,25 Hydroxy 31.5 ng/mL
[2022-10-31 16:19] LABS: Hemoglobin A1c 4.9 % (3.8-5.6)
[2022-11-01 15:18] LABS: Ferritin 20 ng/mL (8-252)
== END | disposition home or self-care (01) ==
LOC: MFPLAB 12:05
PROVIDERS: PCP Family Medicine; Visit Provider Physician Assistant
DX: Z79.899 Other long term (current) drug therapy (principal)
CPT/HCPCS: 36415; 80048; 82306; 82607; 82728; 82746; 83036; 83540; 83550; 84443; 85027

== ENCOUNTER 2024-08-27 02:01 | Emergency (ER) | payer BC, SELFPAY ==
[2024-08-27 02:02] VITALS: BP 113/86; PULSE 88; RESP 18; TEMP 37.1; O2SAT 99; BMI 27.3
--- NOTE | 2024-08-27 02:13 | EX.ED.DYSGE1 ---
HPI History of Present Illness Chief Complaint: Rash [facility] Medical History Acute frontal sinusitis, unspecified Generalized anxiety disorder Major depressive disorder, recurrent severe without psychotic features Home Medications ?Medication ?Instructions ?Recorded ?Last Taken ?Type spironolactone 50 mg tablet 50 mg PO BID 02/08/22 Unknown History methylprednisolone 4 mg tablets in PO UD 08/27/24 Unknown History a dose pack prednisone 20 mg tablet 20 mg PO BID 08/27/24 Unknown History spironolactone 100 mg tablet 100 mg PO QPM 08/27/24 Unknown History venlafaxine 37.5 mg 37.5 mg PO DAILY 08/27/24 Unknown History capsule,extended release 24 hr venlafaxine 75 mg capsule,extended mg PO 08/27/24 Unknown History release 24 hr Allergy/AdvReac Type Severity Reaction Status Date / Time Penicillins Allergy Anaphylaxis Verified 08/27/24 02:05 Surgical History History of wisdom tooth extraction Social History Smoking Status: Never smoker EXAM Physical Exam Const Vital Signs: 08/27/24 02:02 Temperature 98.8 F Temperature Source Oral Pulse Rate 88 Respiratory Rate 18 Blood Pressure 113/86 H Blood Pressure Mean 95 Pulse Ox 99 Oxygen Delivery Method Room Air [facility] [place] Narrative Medical decision making narrative: HISTORY OF PRESENT ILLNESS: Chief complaint: Rash 23-year-old female history of urticaria, anxiety states she has had a rash/hives since Sunday (08/24/2024). No she tried treatment steroids and Benadryl not helping REVIEW OF SYSTEMS: Pertinent positives: Hives Pertinent negatives: Fever, shortness of breath, nausea, abdominal pain PHYSICAL EXAM: Nursing triage notes reviewed, Vital signs reviewed Constitutional: please see mdm HENT: MMM Eyes: Pupils equal round and reactive to light, Extraocular muscles intact, no conjunctival injection Lungs: Clear to auscultation, No wheezing or rales. No increased work of breathing, no conversational dyspnea, no accessory muscle use, no nasal flaring. No respiratory distress noted Heart: Regular rate and rhythm, No murmurs, No rubs and No gallops, 2+ distal pulses (radial, femoral, posterior tibial) in all extremities Abdomen: Soft, no tenderness Extremities: No edema Neuro: No new focal neurological deficits, cranial nerves II through XII intact, 5/5 strength in all present extremities. Intact sensation to light touch in all present extremities, 2+ reflexes bilateral patella tendons. Skin: Diffuse urticarial rash noted on the chest, arms, abdomen, back, bilateral legs. No warmth, no fluctuance no induration no crepitus. No palpable abscess MEDICAL DECISION MAKING: Chief Complaint: please see HPI External records reviewed: [Reviewed prior outpatient visits Factors affecting care: As per HPI Social determinants of health: Denies drug use History obtained from others: none Consults: none [facility] Narrative: The patient was initially hemodynamically stable, afebrile and nontoxic-appearing. Exam consistent with urticaria. I considered the following differential diagnosis: Urticaria, allergic reaction, anaphylaxis, anaphylactic shock No clinical signs or symptoms of anaphylaxis anaphylactic shock however given the patient has had treatment failure with p.o. steroids and Benadryl I opted to treat the patient with IM epinephrine, PO Pepcid. The patient did not require a 4-hour observation given she did not have sign of anaphylaxis. Upon reevaluation the patient remained hemodynamically stable. Symptoms improved. She is appropriate discharge home. The patient and/or family, caregivers express understanding. The patient and/or family, caregivers agrees with the plan. Shared decision making: I will have a discussion with the patient and or visitors regarding risk/benefits of further testing or admission. They will be made aware of of the risk/benefits inherent in this decision they will be given the opportunity to voice understanding. Total critical care time today provided was at least 0 minutes. This excludes separately billable procedures. Critical care time (if documented) is secondary to the patient having high probability of clinically significant/life threatening deterioration in the patient's condition which required my urgent intervention. Impression: 1. Hives 2. Itching Dispo: discharge home This note was generated with [employer] dictation software. It may contain incorrect words, spelling, and punctuation that were not noted in review of the chart prior to signing. Discharge Plan Triage Chief Complaint: Rash ED Provider: Stephen Saucedo Dx/Rx/DC Orders Clinical Impression: Urticaria Instructions: ED Hives (Adult) Prescriptions: No Action spironolactone 50 mg Tablet 50 mg PO BID venlafaxine 37.5 mg capsule,extended release 24hr 37.5 mg PO DAILY venlafaxine 75 mg capsule,extended release 24hr PO prednisone 20 mg tablet 20 mg PO BID spironolactone 100 mg tablet 100 mg PO QPM methylprednisolone 4 mg tablets,dose pack PO UD Primary Care Provider: Joy Pedraza NP Referrals: NOT,DEFINED [Non-Staff] - Activity Restrictions/Additional Instructions: Thank you for trusting us with your care today! Please [id number] Pepcid, Zyrtec as directed. You can take Pepcid up to twice a day or every 12 hours. Please continue taking your oral steroid. Please try to avoid inciting substances. Please return to the emergency department if your symptoms change or worsen. Please follow with your primary care physician and/or allergy and immunology for further outpatient evaluation and management. Print Language: Romanian Disposition Disposition: Home, Self Care
[2024-08-27] MEDS: Epi Pen (EQUIV) 0.3 MG Syringe IM (02:42)
[2024-08-27 03:18] VITALS: BP 132/79; PULSE 86; RESP 15; TEMP 36.1; O2SAT 95
== END 2024-08-27 03:22 | disposition home or self-care (01) ==
PROVIDERS: Emergency Provider Emergency Medicine; PCP Nurse Practitioner Family; Visit Provider Emergency Medicine
DX: L50.9 Urticaria, unspecified (principal); F33.2 Major depressive disorder, recurrent severe without psychotic features; F41.1 Generalized anxiety disorder; Z79.899 Other long term (current) drug therapy
CPT/HCPCS: 96372; 99283

== ENCOUNTER → 2024-12-08 | Outpatient (CLI) | payer BC, SELFPAY ==
--- OUTSIDE RECORDS SUMMARY | 2024-12-08 17:09 | XMS RPT_ITS | CCD ---
Author Organization [facility] Care Team Providers Care Welfare Aide Name Role Phone ORA FERNANDEZ Attending Unavailable JACKSON, BINDDIAN Attending Unavailable JACKSON, BINDYABEN Referring Unavailable JACKSON, BINDYABEN Referring Unavailable JACKSON, BINDYABEN Attending Unavailable JACKSON, BINDYABEN Referring Unavailable JACKSON, BINDYABEN Attending Unavailable JACKSON, BINDYABEN Attending Unavailable JACKSON, BINDYABEN Attending Unavailable JACKSON, BINDYABEN Attending Unavailable JAMIE Del Angel Attending Provider Unavailable Primary Care Provider Unavailkathi Pedraza QUEEN'S COUNSEL, Joy Primary Care Unavailable Stephen Saucedo Attending Unavailable KUSHAL GAYLE Attending Unavailable DAYANARA MALDONADO Attending Unavailable DAYANARA MALDONADO Referring Unavailable SAIDA OMRE Attending Unavailable Allergies Allergy Classification Reported Allergen(s) Allergy Type Date of Onset Reaction(s) Facility (6 sources) Penicillins; Translations: [PENICILLINS] Drug Allergy 05-12-[address] [facility] (1 source) Penicillins Drug allergy (disorder) 08-27-2024 [facility] Repository Medications Current Medications Medication Drug Class(es) Dates Sig (Normalized) Sig (Original) levonorgestrel 0.068930 mg/hr intrauterine system (5 sources) Progestin, Progestin-containi ng Intrauterine Device Start: 2 levonorgestrel (MIRENA) 21 mcg/24hr (up to 8 yrs) 52 mg IUD 52 mg. 05/30/2021 Active methylPREDNISolone (5 sources) Corticosteroid Start: 5 methylPREDNISolone (MEDROL, LUZMARIA,) 4 mg Dose-Pack Indications: Hives , Facial swelling As Instructed per package 21 tablet 08/24/2024 Active Start: 05-25-2024 End: 05-31-2024 methylPREDNISolone (MEDROL, LUZMARIA,) 4 mg Dose-Pack Follow dosing instructions, take with food. 21 tablet 05/25/2024 05/31/2024 Active predniSONE 20 mg oral tablet (2 sources) Start: 08-26-2024 End: 09-04-2024 take 3 tablets by mouth once daily, then take 2 tablets by mouth once daily, then take 1 tablet by mouth once daily predniSONE (DELTASONE) 20 mg tablet Indications: Rash , Localized swelling, mass, or lump of upper extremity, bilateral Take 3 tablets by mouth once daily for 3 days, THEN 2 tablets once daily for 3 days, THEN 1 tablet once daily for 3 days. 18 tablet 08/26/2024 09/04/2024 Active Start: 08-15-2021 End: 08-27-2021 Prednisone Discontinued 10 M G PO daily 17 02August 15, 2021 12:00am August 27, 2021 12:05am Take 4 tabs daily days 1-3 3 tabs once daily days 4-6 2 tabs daily days 7-9 and 1 tab daily days 10-12 spironolactone 100 mg oral tablet (5 sources) Aldosterone Antagonist Start: 05-05-2024 spironolactone (ALDACTONE) 100 mg tablet TAKE 1 TABLET DAILY IN THE EVENING WITH A FULL GLASS OF WATER 05/05/2024 Active 24 hr venlafaxine 37.5 mg extended release oral capsule (9 sources) Serotonin and Norepinephrine Reuptake Inhibitor Start: 07-17-2024 take 1 capsule by mouth once daily at mealtime venlafaxine ER (EFFEXOR XR) 37.5 mg 24 hr capsule TAKE 1 CAPSULE BY MOUTH DAILY WITH FOOD, IN ADDITION TO THE 75 MG CAPSULE 07/17/2024 Active Start: 05-18-2024 take 1 capsule by [facility] once daily at mealtime venlafaxine ER (EFFEXOR XR) 75 mg 24 hr capsule take 1 capsule (75 mg) by mouth daily with food 05/18/2024 Active Problems Problem Classification Problem Date Documented Da te Episodic/Chronic Allergic reactions (4 sources) Urticaria; Translations: [Urticaria, unspecified] Onset: 08-24-2024 Episodic Immunizations and screening for infectious disease (5 sources) Contact with and (suspected) exposure to other viral communicable diseases; Translations: [Patient encounter status] Onset: 12-31-2019 09-15-2024 Episodic Other screening for suspected conditions (not mental disorders or infectious disease) (2 sources) Cancer cervix screening status; Translations: [Encounter for screening for malignant neoplasm of cervix] Onset: 09-15-2024 09-15-2024 Episodic Other skin disorders (2 sources) Eruption; Translations: [Rash and other nonspecific skin eruption] 05-25-2024 Episodic Other skin disorders (1 source) Facial swelling ; Translations: [Localized swelling, mass and lump, head] 08-24-2024 Episodic Other skin disorders (1 source) Finding of upper limb; Translations: [Localized swelling, mass and lump, upper limb, bilateral] 08-26-2024 Episodic Other skin disorders (2 sources) Rash and other nonspecific skin eruption; Translations: [Rash and other nonspecific skin eruption] Onset: 08-26-2024 Episodic Other skin disorders (1 source) Localized swelling, mass and lump, upper limb, bilateral; Translations: [Localized swelling, mass, or lump of upper extremity, bilateral] Onset: 08-26-2024 Episodic Other skin disorders (1 source) Localized swelling, mass and lump, head; Translations: [Facial swelling] Onset: 08-24-2024 Episodic Residual codes; unclassified (1 source) Edema of extremity; Translations: [Localized edema] 05-25-2024 Episodic Results Test Name Value Interpretation Reference Range Facil ity C. trachomatis+N. gonorrhoea e DNA OMAYRA+probe Ql (Unsp spec)on 09-15-2024 C. trachomatis rRNA OMAYRA+probe Ql (Unsp spec) Not detected Normal Not detected [facility] Comment on above: Order Comment: Speci men Type: SWAB Ordering Facility: [facility] Address: [address] [place] [address] Performed By: #### 3 6902-5, TRANAYELI #### [facility] CLIA [id number] [address] [place] [address] [place] N. gonorrhoeae rRNA OMAYRA+probe Ql (Unsp spec) Not detected Normal Not detected [facility] Comment on above: Order Comment: Speci men Type: SWAB Ordering Facility: [facility] Address: [address] [place] [address] Performed By: #### 3 6902-5, DEJAN #### [facility] CLIA [id number] [address] [place] [address] STATES OF [facility] CNOVon 09-15-2024 CNOV Office Visit (OBGYWM ) SASHA CLEMENS ([id number]) 2000 F Date Time Provider Department 09/15/24 9:15 AM DAYANARA MALDONADO OBYULIANAWJustin During your visit today, we recorded the following information about you: Blood pressure Weight Height Last Period 122/70 75 kg 1.658 m 08/20/24 Dayanara Maldonado APRN.PHYSICAL METALLURGIST 09/15/2024 9:39 AM Signed Patient declined 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 Age at Menarche: 11 Still get period: Yes, Mirena placed 2021 LMP: 08/20/2024 Menses: irregular with IUD Menstrual flow: Moderate Bleeding amount bothersome: No Bleeding between periods: No Period symptoms: Acne, Breast tenderness, Cramps, and Mood change Sexually active: Yes Contraception: Condom and IUD Contraception frequency: Always HPV vaccine: Yes x3 HPV:N/A Last pap smear: unknown History of abnormal pap: No Bothersome pelvic pain: No Last mammogram: never OB History No obstetric history on file. 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 History LMP: 08/20/2024 (Exact Date), IUD Age at Menarche: 11 Age at First : Age at Menopause: 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 History Comments: Sexual Activity: Yes; Male Contraception: I.U.D., Condom PAST MEDICAL HISTORY Diagnosis Date Generalized anxiety disorder depression Pt reported PAST SURGICAL HISTORY Procedure Laterality Date EXTRACTION ERUPTED TOOTH/EXR Pt reported FAMILY HISTORY Problem Relation Age of Onset Diabetes Mother No Known Problems Father Breast Cancer Maternal Grandmother SOCIAL HISTORY Social History Tobacco Use Smoking status: Never Smokeless tobacco: Never Vaping Use Vaping status: Never Used Substance Use Topics Alcohol use: Yes Drug use: Never REVIEW OF SYSTEMS Abdomen: No abdominal pain, nausea, vomiting, diarrhea, or constipation. No bloating, early satiety, indigestion, or increased flatulence. Bladder: No dysuria, gross hematuria, urinary frequency, urinary urgency, or incontinence. Breast: No breast lumps, nipple d/c, overlying skin changes, redness or skin retraction. Allergies and current medication updated:Yes SENSITIVE EXAM: The sensitive examination was discussed with the Patient or Patient's Authorized Timber Sprinkler. As applicable, any other physician, advance practice provider, medical student, or other health professional student that will be observing or involved in the sensitive examination for educational or training purposes was discussed with the Patient or Authorized Timber Sprinkler. The Patient or Authorized Timber Sprinkler has agreed to proceed with the sensitive examination. (Sensitive examination includes inspection and/or palpation of the breasts, pelvis, prostate and anorectal regions). EXAM: BP 122/70 Ht 5' 5.276" (1.66m) Wt 165 lb 6.4 oz (75.0kg) LMP 08/20/2024 BMI 27.29 kg/(m2). GENERAL: pleasant, female in no apparent distress HEENT: Normocephalic, atraumatic, mucus membranes moist, and no lesions NECK: Supple, full range of motion, no adenopathy, and thyroid normal DERMATOLOGY: Normal, without lesions, non-icteric, and non-hirsute BREAST: soft, non-tender, symmetric, no dominant mass, normal nipple-areolar complex, no lymphadenopathy, and no nipple discharge CHEST: Normal inspiratory effort ABDOMEN: soft, non-tender, and no masses PELVIC: external genitalia normal, normal Bartholin's glands, urethra, [place]'s glands, no vulvar lesions, no cervical lesions, good vaginal support, physiologic discharge present, normal appearing perineal body and perianal region, IUD strings visible BIMANUAL: uterus normal size, shape and consistency, no adnexal masses, and non-tender RECTOVAGINAL: deferred. NEURO: alert and oriented x3,exam grossly non-focal EXTREMITIES: normal ASSESSMENT/PLAN: 1) Health maintenance: Pap done with reflex HPV. Mammogram starting age 40. HPV vaccine: completed series 2) Contraception: IUD. 3) STD screening: Accepts full STI screeening including HIV, Syphilis and T Vaginalis. 4) Follow up one year or sooner as needed Dayanara Maldonado APRN.PHYSICAL METALLURGIST Allergies As of Date: 09/15/2024 Noted Allergy Reaction PENICILLINS 05/12/2019 2 - Rash Date Reviewed: 09/15/2024 Reviewed by: Dayanara Maldonado APRN.PHYSICAL METALLURGIST - Fully Assessed Reason for Visit: Well Woman [1463] Primary Visit Diagnosis:Encounter for gynecological examination (general) (routine) without abnormal findings [Z01.419] Other Visit Diagnoses:Screening for cervical cancer [Z12.4] Encounter for screening for human papillomavirus (HPV) [Z11.51] Screen for STD (sexually transmitted disease) [Z11.3] Order(s):PAP TEST [OWA8112] Order #: [id number] GONORRHEA/CHLAMYDIA NAAT [SQGCCT] Order #: [id number] TRICHOMONAS VAGINALIS NAAT [SQTRVAMP] Order #: [id number] SYPHILIS TREPONEMAL W/REFLEX [SQSYPHTX] Order #: [id number] FUTURE HIV 1/2 COMBO WITH REFLEX TO DI (more content not included)... Normal [facility] HBV surface Ag Ser Qlon 08-20 HBV surface Ag Ql (S) Negative Normal Negative [facility] Comment on above: Order Comment: Speci men Type: BLOOD SPECIMEN Ordering Facility: [facility] Address: [address] [place] [address] Performed By: #### 5 195-3, 21170-7, 38375-3 #### [facility] CLIA [id number] [address] [place] [address] [place] HCV Ab Ser Qlon 09-15-2024 HCV Ab Ql (S) Negative Normal Negative [facility] Comment on above: Order Comment: Speci men Type: BLOOD SPECIMEN Ordering Facility: [facility] Address: [address] [place] [address] Result Comment: The result suggests no evidence of infection with Hepatitis C virus. Should recent infection be suspected, repeat testing may be considered 4-6 weeks after this draw. Performed By: #### 1 6128-1 #### [facility] CLIA [id number] [address] [place] [address] [place] HIV 1+2 Ab IA Qlon 5 HIV 1 and 2 Ab IA.rapid Nom (S/P/Bld) Normal [facility] Comment on above: Order Comment: Speci men Type: BLOOD SPECIMEN Ordering Facility: [facility] Address: [address] [place] [address] Result Comment: Test not indicated. Performed By: #### 5 195-3, 63318-4, 03358-3 #### [facility] CLIA [id number] [address] [place] [address] [place] HIV 1+2 Ab+HIV1 p24 Ag IA Ql Non-Reactive Normal Nonreactive [facility] Comment on above: Order Comment: Speci men Type: BLOOD SPECIMEN Ordering Facility: [facility] Address: [address] [place] [address] Performed By: #### 5 195-3, 82824-0, 07156-7 #### [facility] CLIA [id number] [address] [place] [address] [place] HIV immunoassay testing algorithm interpretation (S/P/Bld) [Interp] Normal [facility] Comment on above: Order Comment: Speci men Type: BLOOD SPECIMEN Ordering Facility: [facility] Address: [address] [place] [address] Result Comment: No e vidence of HIV-1 or HIV-2 infection. Should recent infection be suspected, repeat testing may be considered 2-3 weeks after this draw. [place] Rev. Code 3701.243(E): This information has been disclosed to you from confidential records protected from disclosure by state law. You shall make no further disclosure of this information without the specific, written, and informed release of the individual to whom it pertains or as otherwise permitted by state law. A general authorization for the release of medical or other information is not sufficient for the purpose of the release of HIV test results or diagnoses. Performed By: #### 5 195-3, 28939-4, 97896-0 #### [facility] CLIA [id number] [address] [place] [address] [place] PAP TESTon 09-15-2024 ADEQUACY Normal [facility] Comment on above: Order Comment: Speci men Type: FLUID SPECIMEN Ordering Facility: [facility] Address: [address] [place] [address] Result Comment: Sati sfactory for interpretation. Transformation zone present Performed By: #### L [id number] #### [facility] CLIA [id number] [address] [place] [address] [place] CASE REPORT Normal [facility] Comment on above: Order Comment: Speci men Type: FLUID SPECIMEN Ordering Facility: [facility] Address: [address] [place] [address] Result Comment: Gyne cologic Cytology Report Case: [id number] Authorizing Provider: Dayanara Maldonado APRN.PHYSICAL METALLURGIST Collected: 09/15/2024 09:41 AM Ordering Location: OB/Gynecology Received: 09/15/2024 11:56 AM First Screen: [place], [place], [place], ASCP Specimen: Pap Test, ThinPrep, Cervix Performed By: #### L [id number] #### [facility] CLIA [id number] [address] [place] [address] [place] CLINICAL HISTORY, CYTOLOGY, SCANNER SUPERVISOR Routine Exam Normal [facility] Comment on above: Order Comment: Speci men Type: FLUID SPECIMEN Ordering Facility: [facility] Address: [address] [place], [place] [address] Performed By: #### L [id number] #### [facility] CLIA [id number] [address] [place], [place] [address] [place] FINAL PERFORMING LAB Normal [facility] Comment on above: Order Comment: Speci men Type: FLUID SPECIMEN Ordering Facility: [facility] Address: [address] [place], [place] [address] Result Comment: Tech nical component, floriculturist screening performed at: [facility], [address] [place] [address] [place] [address] CLIA: [id number] Diagnostic interpretation performed at: [facility], [address] [place] [address] [place] [address] CLIA# [id number] Pad Extractor Tender: Cuate Story MD Performed By: #### L [id number] #### [facility] CLIA [id number] [address] [place] [address] [place] INTERPRETATION, CYTOLOGY, SCANNER SUPERVISOR Normal [facility] Comment on above: Order Comment: Speci men Type: FLUID SPECIMEN Ordering Facility: [facility] Address: [address] [place] [address] Result Comment: Nega tive for intraepithelial lesion or malignancy. at 1418 EDT Performed By: #### L [id number] #### [facility] CLIA [id number] [address] [place] [address] [place] LMP 08/20/2024 Normal [facility] Comment on above: Order Comment: Speci men Type: FLUID SPECIMEN Ordering Facility: [facility] Address: [address] [place] [address] Performed By: #### L [id number] #### [facility] CLIA [id number] [address] [place] [address] [place] PAP DISCLAIMER COMMENT The Pap Smear is a screening test for cervical cancer. False negative results occur with all screening tests, emphasizing the need for rescreening at recommended intervals, and clinical correlation. Normal [facility] Comment on above: Order Comment: Speci men Type: FLUID SPECIMEN Ordering Facility: [facility] Address: [address] [place] [address] Performed By: #### L [id number] #### [facility] CLIA [id number] [address] [place] [address] [place] PAP ONLINE JOURNALIST COMMENT This specimen has be en analyzed by the FDA-approved FirstStringTM System, which uses digital imaging and an enhanced artificial intelligence image analysis algorithm to identify yancey of interest on the microscopic slide, to assist the kitchen manager and pathologist in evaluating cells on ThinPrep Pap tests. Following analysis, yancey of interest on the microscopic slide selected by the algorithm are reviewed by a kitchen manager. If a sample requires hierarchical review, the pathologist will review the same yancey of interest selected by the algorithm prior to final interpretation. Normal [facility] Comment on above: Order Comment: Speci men Type: FLUID SPECIMEN Ordering Facility: [facility] Address: [address] [place] [address] Performed By: #### L [id number] #### [facility] CLIA [id number] [address] [place] [address] [place] Reagin and Treponema pallidu m IgG and IgM [Interp]on 09-15-2024 T. pallidum IgG+IgM IA Ql (S) Non-Reactive Normal Nonreactive [facility] Comment on above: Order Comment: Tomasi rita Type: BLOOD SPECIMEN Ordering Facility: [facility] Address: [address] [place] [address] Performed By: #### 5 195-3, 66235-9, 01577-1 #### [facility] CLIA [id number] [address] [place] [address] [place] Reagin+T pallidum IgG+IgM Se rPl-Impon 09-15-2024 Reagin and Treponema pallidum IgG and IgM [Interp] Cannot exclude recent Treponemal infection if specimen collected within 7-10 days after appearance of suspect lesions or 2-3 weeks after an exposure. Clinical correlation is required. Normal [facility] Comment on above: Order Comment: Tomasi rita Type: BLOOD SPECIMEN Ordering Facility: [facility] Address: [address] [place] [address] Performed By: #### 5 195-3, 08320-9, 16402-9 #### [facility] CLIA [id number] [address] [place], [place] [address] [address] [place] TRICHOMONAS VAGINALIS NAATon 09-15-2024 T. vaginalis DNA OMAYRA+probe Ql (Unsp spec) Not detected Normal Not detected [facility] Comment on above: Order Comment: Speci men Type: SWAB Ordering Facility: [facility] Address: [address] [place] [address] Performed By: #### 3 6902-5, TRVAMP #### [facility] CLIA [id number] [address] [place] [address] [place] [address] [place] Emergency Department Summary on 08-27-2024 Emergency Department Summary [facility] Medical Records Department [address] [place] [address] Emergency Department Summary 08/27/24 MR#: [id number] Acct: [id number] Name: SASHA CLEMENS Rep #: [id number] : 2000 23 From: Stephen Saucedo DO PCP: PHILIPP Carrillo Status:REG ER Location: ED HPI History of Present Illness Chief Complaint: Rash [facility]SH [facility] Medical History Acute frontal sinusitis, unspecified Generalized anxiety disorder Major depressive disorder, recurrent severe without psychotic features Home Medications ???Medication ???Instructions ???Recorded ???Last Taken ???Type spironolactone 50 mg tablet 50 mg PO BID 02/08/22 Unknown Hist ory methylprednisolone 4 mg tablets in PO UD 08/27/24 Unknown History a dose pack prednisone 20 mg tablet 20 mg PO BID 08/27/24 Unknown Hist ory spironolactone 100 mg tablet 100 mg PO QPM 08/27/24 Unknown His tory venlafaxine 37.5 mg 37.5 mg PO DAILY 08/27/24 Unknown History capsule,extended release 24 hr venlafaxine 75 mg capsule,extended mg PO 08/27/24 Unknown History release 24 hr Allergy/AdvReac Type Severity Reaction Status Date / Time Penicillins Allergy Anaphylaxis Verified 08/27/24 02:05 Surgical History History of wisdom tooth extraction Social History Smoking Status: Never smoker EXAM Physical Exam Const Vital Signs: 08/27/24 02:02 Temperature 98.8 F Temperature Source Oral Pulse Rate 88 Respiratory Rate 18 Blood Pressure 113/86 H Blood Pressure Mean 95 Pulse Ox 99 Oxygen Delivery Method [place] Air [facility] [place] Medical decision making narrative: HISTORY OF PRESENT ILLNESS: Chief complaint: Rash 23-year-old female history of urticaria, anxiety states she has had a rash/hives since Sunday (08/24/2024). No she tried treatment steroids and Benadryl not helping REVIEW OF SYSTEMS: Pertinent positives: Hives Pertinent negatives: Fever, shortness of breath, nausea, abdominal pain PHYSICAL EXAM: Nursing triage notes reviewed, Vital signs reviewed Constitutional: please see [facility] HENT: MMM Eyes: Pupils equal round and reactive to light, Extraocular muscles intact, no conjunctival injection Lungs: Clear to auscultation, No wheezing or rales. No increased work of breathing, no conversational dyspnea, no accessory muscle use, no nasal flaring. No respiratory distress noted Heart: Regular rate and rhythm, No murmurs, No rubs and No gallops, 2+ distal pulses (radial, femoral, posterior tibial) in all extremities Abdomen: Soft, no tenderness Extremities: No edema Neuro: No new focal neurological deficits, cranial nerves II through XII intact, 5/5 strength in all present extremities. Intact sensation to light touch in all present extremities, 2+ reflexes bilateral patella tendons. Skin: Diffuse urticarial rash noted on the chest, arms, abdomen, back, bilateral legs. No warmth, no fluctuance no induration no crepitus. No palpable abscess MEDICAL DECISION MAKING: Chief Complaint: please see [facility] External records reviewed: [Reviewed prior outpatient visits Factors affecting care: As per HPI Social determinants of health: Denies drug use History obtained from others: none Consults: none [facility] Narrative: The patient was initially hemodynamically stable, afebrile and nontoxic-appearing. Exam consistent with urticaria. I considered the following differential diagnosis: Urticaria, allergic reaction, anaphylaxis, anaphylactic shock No clinical signs or symptoms of anaphylaxis anaphylactic shock however given the patient has had treatment failure with p.o. steroids and Benadryl I opted to treat the patient with IM epinephrine, PO Pepcid. The patient did not require a 4-hour observation given she did not have sign of anaphylaxis. Upon reevaluation the patient remained hemodynamically stable. Symptoms improved. She is appropriate discharge home. The patient and/or family, caregivers express understanding. The patient and/or family, caregivers agrees with the plan. Shared decision making: I will have a discussion with the patient and or visitors regarding risk/benefits of further testing or admission. They will be made aware of of the risk/benefits inherent in this decision they will be given the opportunity to voice understanding. Total critical care time today provided was at least 0 minutes. This excludes separately billable procedures. Critical care time (if documented) is secondary to the patient having high probability of clinically significant/life threatening deterioration in the patient's condition which required my urgen (more content not included)... Normal [facility] CNOVon 08-26-2024 CNOV Office Visit (WOUCA) SASHA CLEMENS ([id number]) 2000 F Date Time Provider Department 08/26/24 9:15 AM KUSHAL GAYLE During your visit today, we recorded the following information about you: Temperature Pulse Respiration Blood pressure 96.9 degrees 118/minute 18/minute 122/80 Weight 77 kg Kushal Gayle MD 08/26/2024 9:15 AM Signed [facility] [address] [place], [place] [address] Emergency Department Diagnosis: Assessment NONSPECIFIC RASH: Our exam shows you have a rash which has no clear cause. Rashes can result from infections, allergies, or irritation of the skin by chemicals or other environmental factors. Rashes can also result from scratching or rubbing the skin too much to relieve itching. Further medical examination may be needed to identify the specific cause and proper treatment of your skin rash. You should treat your rash as recommended by your doctor. If you have itching, you should avoid scratching as much as possible, as this further damages the skin. Ask your doctor or pharmacist if you have any questions about what topical medicines may help relieve your symptoms. Call your doctor right away if your rash is not better in 2-3 days, if it worsens, or if there are signs of infection (increased pain, redness, drainage or pus). Kushal Gayle MD 08/26/2024 9:24 AM Signed [facility] Subjective Sasha Clemens is a 23 year old female. Patient presents with: Rash: hives seen on Sunday given medrol, swelling in hands x this am Pt here with ongoing rash on body and face started 3 days ago doing yardwork given a medrol dosepak but has not helped pt also here has bilateral swelling of hand no facial swelling no tongue swelling no trouble breathing Rash Pertinent negatives include no cough, fatigue, fever, shortness of breath or sore throat. Review of Systems Constitutional: Negative for chills, fatigue and fever. HENT: Negative for facial swelling, sore throat and trouble swallowing. Respiratory: Negative for cough, chest tightness, shortness of breath, wheezing and stridor. Cardiovascular: Negative for chest pain, palpitations and leg swelling. Musculoskeletal: Positive for joint swelling and myalgias. Skin: Positive for rash. Neurological: Negative for dizziness and headaches. Objective BP 122/80 Pulse 118 Temp 36.1 ?C (96.9 ?F) Resp 18 Wt 77 kg (169 lb 12.1 oz) SpO2 99% Physical Exam Vitals and nursing note reviewed. Constitutional: Appearance: Normal appearance. She is not ill-appearing. HENT: Mouth/Throat: Mouth: Mucous membranes are moist. Pharynx: Oropharynx is clear. Eyes: Extraocular Movements: Extraocular movements intact. Pupils: Pupils are equal, round, and reactive to light. Cardiovascular: Rate and Rhythm: Regular rhythm. Tachycardia present. Heart sounds: Normal heart sounds. Pulmonary: Effort: Pulmonary effort is normal. Breath sounds: Normal breath sounds. No stridor. No wheezing, rhonchi or rales. Chest: Chest wall: No tenderness. Musculoskeletal: General: Normal range of motion. Cervical back: Normal range of motion and neck supple. Comments: Bilateral diffuse swelling of hand s no warmth no redness Skin: Findings: Rash present. Comments: Blancheable red patchy rash on extremities and face Neurological: Mental Status: She is alert. {ASSESSMENT/PLAN: 1. Rash - ICD9: 782.1, ICD10: R21 (primary diagnosis) - PREDNISONE 20 MG TABLET 2. Localized swelling, mass, or lump of upper extremity, bilateral - ICD9: 782.2, ICD10: R22.33 Advised pt to follow up with pcp for a referral if no better ED if any worse - PREDNISONE 20 MG TABLET Kushal Gayle MD History and Record Review Clinical information obtained from an independent historian. History obtained from or confirmed by: friend. External record(s) reviewed: prior outpatient record. Systemic symptoms present included: swelling Differential Diagnoses - rash is more likely for the following reason(s): suggested by HANDP - anphylaxis is less likely for the following reason(s): no facial swelling no breathing issues, HANDP not suggestive Disposition The patient was discharged. Procedures Allergies As of Date: 08/26/2024 Noted Allergy Reaction PENICILLINS 05/12/2019 2 - Rash Date Reviewed: 08/26/2024 Reviewed by: Pilar Ramirez MA - Fully Assessed Reason for Visit: Rash [1087] Cmt: hives seen on Sunday given medrol, swelling in hands x this am Primary Visit Diagnosis:Rash [R21] Other Visit Diagnosis:Localized swelling, mass, or lump of upper extremity, bilateral [R22.33] Order(s):predniSONE (DELTASONE) 20 mg tabletTake 3 tablets by mouth once daily for 3 days, THEN 2 tablets once daily for 3 days, THEN 1 tablet once daily for 3 days.Disp: 18 tabletRfl: 0 Prescriptions (more content not included)... Normal [facility] CNOVon 08-24-2024 CNOV Office Visit ([facility] ) SASHA CLEMENS ([id number]) 2000 F Date Time Provider Department 08/24/24 10:45 AM SAIDA OMER WSTR During your visit today, we recorded the following information about you: Temperature Pulse Respiration Blood pressure 98.1 degrees 106/minute 18/minute 111/77 Weight 76.3 kg Saida Omer APRN.CNP 08/24/2024 10:51 AM Signed ASSESSMENT/PLAN: 1. Hives - ICD9: 708.9, ICD10: L50.9 (primary diagnosis) - Likely viral or allergic etiology discussed with patient - Treatment with antihistamine- Zyrtec 10mg po QD and systemic steriods taper- see orders - Anti itch therapy of OTC 1% Hydrocortisone cream and Oral Benydryl recommended prn - Follow up if symptoms persist or worsen. - METHYLPREDNISOLONE 4 MG TABLETS IN A DOSE PACK 2. 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 - Patient education provided today - Discussed with patient medications that are indicated and how to use the medications and what the potential side effects are. - Warning signs of worsening condition explained to patient -Instructed to follow up with PCP if symptoms not improving in next 2-3 days - Patient left in stable condition after questions answered and patient verbalizes understanding - Instructed to go to Emergency Department right away with any severe worsening chest pain, shortness of breath, headache, dizziness, weakness, numbness,leg swelling , tingling, problems walking or speaking or any other concerning symptoms Patient education: Hives (The Basics) What are hives? -- Hives are raised, red patches of skin that are usually very itchy. They can happen because of an allergy or other causes. In most cases, hives come and go within a few hours. But they can show up again and again in some people. Some people who get hives also get a condition called angioedema. Angioedema is puffiness or swelling. It usually happens in the face, eyelids, ears, mouth, hands, feet, or genitals. Some people who get hives or angioedema are having a dangerous allergic reaction. See a doctor or nurse right away if you suddenly get hives or get puffy and also have any of these symptoms: ?Trouble breathing ?Tightness in the throat ?Nausea and vomiting ?Cramps or stomach pain ?Passing out Why did I get hives? -- If you just got hives for the first time, you might have a new allergy to something. People can get hives because of allergies to: ?Medicines, such as antibiotics or aspirin ?Foods, such as eggs, nuts, fish, or shellfish ?Something they touched, such as a plant, animal saliva, or latex ?Insect stings If your hives are caused by an allergy, you will need to avoid whatever you are allergic to. Hives can also be caused by: ?Infections ?Having cold air or water on the skin ?Having something press or vibrate against the skin ?Changes in body temperature (such as when you cool down after a hot shower or a work out) If you have had hives on most days for more than 6 weeks, you probably do not have an allergy. Hives that last this long are called "chronic hives." In most cases, doctors do not know what causes chronic hives. If you have chronic hives, you will probably need to take medicines every day to control them. Luckily, chronic hives do usually go away with time. How are hives treated? -- You might not need treatment. Hives usually go away in a few days or weeks, even if you do not get treated. But if you do need treatment, the first step is to figure out if anything triggered the hives. If so, you will need to avoid that trigger. To relieve itching, you can take medicines called antihistamines. These are the same medicines people usually take for allergies. If you have severe hives or your hives will not go away, your doctor or nurse might suggest that you take medicines called steroids for a short time. Steroids work well but you should not take them for long, because they can cause serious side effects. These steroids are not the same ones that athletes take to build up muscle. These steroids relieve itching and reduce swelling. This topic retrieved from EduardToSaida Velasco APRN.OSMAN 08/24/2024 11:03 AM Signed [facility] Subjective Sasha Clemens is a 23 year old female c/o sudden hives on forehead with upper eyelid swelling bilaterally, first noticed this morning while cleaning face, no known exposures, was outside yesterday, made fish for dinner, history of sensitive skin Patient presents with: Hives: On face x this AM The history is provided by the patient. Hives This is a new problem. The (more content not included)... Normal [facility] CNOVon 05-25-2024 CNOV Office Visit (UCWSTR ) SASHA CLEMENS ([id number]) 2000 F Date Time Provider Department 05/25/24 9:45 AM [facility] During your visit today, we recorded the following information about you: Temperature Pulse Respiration Blood pressure 98.1 degrees 105/minute 18/minute 108/76 Weight 80.3 kg Talita Littlejohn APRN.[facility] 05/25/2024 10:10 AM Signed [facility] Subjective HPI Sasha Clemens is a 23 year old female. Patient presents with: Rash: Hives and splotchy rash on face and arms x1 day Rash: - Recurrent episodes of hives, with current episode involving face and ears. - Describes ears as hot and itchy. - No new soaps, lotions, detergents, clothing, or medications. - No known seasonal allergies. - Previous episodes treated with steroids, which provided relief. - Took Zyrtec this morning with no relief. Edema: - Swelling of hands and feet, with significant discomfort in feet making walking painful. - Noticed swelling upon waking this morning; describes it as "much worse than it normally is." - Index finger more swollen than other fingers. - Denies any known trauma or injury. - No history of CHF. - No known history of RA; was tested as a child with negative results. Acne: - Taking spironolactone daily for acne management. Review of Systems Constitutional: Negative for fatigue and fever. Musculoskeletal: Negative for myalgias. Skin: Negative for color change and rash. Objective BP 108/76 Pulse 105 Temp 36.7 ?C (98.1 ?F) Resp 18 Wt 80.3 kg (177 lb 0.5 oz) SpO2 99% Physical Exam Vitals and nursing note reviewed. Constitutional: General: She is not in acute distress. HENT: Head: Normocephalic and atraumatic. Eyes: Conjunctiva/sclera: Conjunctivae normal. Pupils: Pupils are equal, round, and reactive to light. Pulmonary: Effort: Pulmonary effort is normal. Musculoskeletal: Cervical back: Normal range of motion and neck supple. Skin: General: Skin is warm and dry. Findings: Rash present. Rash is urticarial. Neurological: Mental Status: She is alert and oriented to person, place, and time. General: No acute distress. Skin: Urticarial rash on face, ears, and hands; no pitting edema of hands and feet. The patient consented to the use of iSTAR software for draft documentation of the visit consistent with [facility]?s Notice of Privacy Practices. History and Record Review External record(s) reviewed: prior outpatient record and Care[facility]where. Findings from review of outpatient records: no labs available Findings from review of CareEverywhere records: no labs available ASSESSMENT/PLAN: 1. Rash - ICD9: 782.1, ICD10: R21 (primary diagnosis) Appears to be hives Zyrtec 10 mg bid Medrol dose pack 2. Fluid collection (edema) in the arms, legs, hands and feet - ICD9: 782.3, ICD10: R60.0 Does not appear pitting, or compromising ROM Would recommend follow up tomorrow with PCP for further evaluation Diagnosis and treatment plan were discussed and questions were answered to the patient's satisfaction. Pt acknowledged understanding of concepts and follow up plan. Specific signs and symptoms that would indicate the need for higher level of care were discussed in detail warranting prompt ER evaluation. Talita Littlejohn APRN.Talita Willams APRN.CNP 05/25/2024 10:01 AM Signed - Start taking the Medrol Dosepak (prednisone) as prescribed: 60 mg on the first day, then decrease by 10 mg each day (50 mg, 40 mg, 30 mg, 20 mg, 10 mg). You can take the entire daily dose at once to avoid sleep disturbances. - Continue taking Zyrtec for hives. You can increase the dose to 10 mg in the morning and 10 mg at night until the rash is gone. - Schedule an appointment with your primary care provider at [facility] tomorrow to evaluate the swelling in your hands and feet and to get blood work done. - Consider using compression stockings to help with the swelling in your feet. You can purchase them at [employer] or [employer]. Allergies As of Date: 05/25/2024 Noted Allergy Reaction PENICILLINS 05/12/2019 2 - Rash Date Reviewed: 05/25/2024 Reviewed by: Farzaneh Croft MA - Fully Assessed Reason for Visit: Rash [1087] Cmt: Hives and splotchy rash on face and arms x1 day Primary Visit Diagnosis:Rash [R21] Other Visit Diagnosis:Fluid collection (edema) in the arms, legs, hands and feet [R60.0] Order(s):methylPREDNISo lone (MEDROL, LUZMARIA,) 4 mg Dose-PackFollow dosing instructions, take with food.Disp: 21 tabletRfl: 0 Prescriptions as of 05/25/2024 - spironolactone (ALDACTONE) 100 mg tablet TAKE 1 TABLET DAILY IN THE EVENING WITH A FULL GLASS OF WATER - venlafaxine ER (EFFEXOR XR) 75 mg 24 hr capsule take 1 capsule (75 mg) by mouth daily with food - levonorgestrel (MIRENA) 21 mcg/24hr (up to 8 yrs) 52 mg IUD 52 mg. - methy (more content not included)... Normal [facility] SARS-CoV, QL, PCRon 12-31-19 20 SARS-CoV, QL, PCR Undetected Normal Undetected [facility] Comment on above: Order Comment: Sympt omatic?->No Indications (select all that apply)->Asymptomatic - community/general population Was specimen collected by a [facility] state farm agent team member?->Yes NO KNOWN ALLERGIES Result Comment: Testing was performed using the [employer] Direct. Fact sheets for this Emergency Use Authorization (EUA) assay can be found at the following links: For Healthcare Providers: https://www.fda.gov/media/055311/download For Patients: https://www.fda.gov/media/575584/download Test Performed by: [facility], Lab, [address] [place] [address] Java Golden Gate Developer: Renata Vieyra MD; CLIA#: [id number] Performed By: #### L [id number] #### [facility] [address] [place] [address] SARS-CoV-2, QL, PCRon 2019 SARS-CoV-2, QL, PCR Undetected Normal Undetected [facility] Comment on above: Order Comment: Sympt omatic?->No Indications (select all that apply)->Asymptomatic - community/general population Was specimen collected by a [facility] state farm agent team member?->Yes NO KNOWN ALLERGIES Result Comment: Testing was performed using the [employer] Direct. Fact sheets for this Emergency Use Authorization (EUA) assay can be found at the following links: For Healthcare Providers: https://www.fda.gov/media/368726/download For Patients: https://www.fda.gov/media/311654/download Test Performed by: [facility], [address] [place] [address] [employer] Golden Gate Developer: Renata Vieyra MD; CLIA#: [id number] Performed By: #### L [id number] #### [facility] [address] [place] [address] SARS-CoV-2, QL, PCRon 2019 SARS-CoV-2, QL, PCR Undetected Normal Undetected [facility] Comment on above: Order Comment: Sympt omatic?->No Indications (select all that apply)->Asymptomatic - community/general population Was specimen collected by a [facility] state farm agent team member?->Yes NO KNOWN ALLERGIES Result Comment: Testing was performed using the [employer] Direct. Fact sheets for this Emergency Use Authorization (EUA) assay can be found at the following links: For Healthcare Providers: https://www.fda.gov/media/458095/download For Patients: https://www.fda.gov/media/728005/download Test Performed by: [facility],[address] [place] [address], Java Golden Gate Developer: Renata Vieyra MD; CLIA#: [id number] Performed By: #### L [id number] #### [facility] [address] [place] [address] Vital Signs Date Time Vital Sign Value Performing Clinician Facility 09-15-2024 09:23-0400 Body height 165.8 cm Dayanara Yanbob ROLAND.PHYSICAL METALLURGIST Work Phone: [facility] 09-15-2024 09:23-0400 Body mass index (BMI) [Ratio] 27.29 kg/m2 Daaynara Maldonado APRN.PHYSICAL METALLURGIST Work Phone: [facility] 09-15-2024 09:23-0400 Body weight 75.03 kg Dayanara Yanbob METALSMITH HELPER.PHYSICAL METALLURGIST Work Phone: [facility] 09-15-2024 09:23-0400 Diastolic blood pressure 70 mm[Hg] Dayanaraezra Yanbob ROLAND.PHYSICAL METALLURGIST Work Phone: [facility] 09-15-2024 09:23-0400 Systolic blood pressure 122 mm[Hg] Dayanara Erica ROLAND.PHYSICAL METALLURGIST Work Phone: [facility] 08-26-2024 09:01-0400 Body temperature 96.91 [degF] Kushal Gayle MD Work Phone: [facility] 08-26-2024 09:01-0400 Body weight 77 kg Kushal Gayle MD Work Phone: [facility] 08-26-2024 09:01-0400 Diastolic blood pressure 80 mm[Hg] Kushal Gayle MD Work Phone: [facility] 08-26-2024 09:01-0400 Heart rate 118 /min Kushal Gayle MD Work Phone: [facility] 08-26-2024 09:01-0400 Respiratory rate 18 /min Kushal Gayle MD Work Phone: [facility] 08-26-2024 09:01-0400 SaO2% (BldA) [Mass fraction] 99 % Kushal Gayle MD Work Phone: [facility] 08-26-2024 09:01-0400 Systolic blood pressure 122 mm[Hg] Kushal Gayle MD Work Phone: [facility] 08-24-2024 10:37-0400 Body temperature 98.1 [degF] Saida Schwanger METALSMITH HELPER.PHYSICAL METALLURGIST Work Phone: [facility] 08-24-2024 10:37-0400 Body weight 76.3 kg Saida Schwanger METALSMITH HELPER.PHYSICAL METALLURGIST Work Phone: [facility] 08-24-2024 10:37-0400 Diastolic blood pressure 77 mm[Hg] Saida Schwanger METALSMITH HELPER.PHYSICAL METALLURGIST Work Phone: [facility] 08-24-2024 10:37-0400 Heart rate 106 /min Saida Schwanger METALSMITH HELPER.PHYSICAL METALLURGIST Work Phone: [facility] 08-24-2024 10:37-0400 Respiratory rate 18 /min Saida Schwanger METALSMITH HELPER.PHYSICAL METALLURGIST Work Phone: [facility] 08-24-2024 10:37-0400 SaO2% (BldA) [Mass fraction] 97 % Saida Schwsophie METALSMITH HELPER.PHYSICAL METALLURGIST Work Phone: [facility] 08-24-2024 10:37-0400 Systolic blood pressure 111 mm[Hg] Saida Schwanger METALSMITH HELPER.PHYSICAL METALLURGIST Work Phone: [facility] 05-25-2024 09:46-0400 Body temperature 98.1 [degF] Talita Kranthi METALSMITH HELPER.PHYSICAL METALLURGIST Work Phone: [facility] 05-25-2024 09:46-0400 Body weight 80.3 kg Talita Kranthi METALSMITH HELPER.PHYSICAL METALLURGIST Work Phone: [facility] 05-25-2024 09:46-0400 Diastolic blood pressure 76 mm[Hg] Talita Kranthi METALSMITH HELPER.PHYSICAL METALLURGIST Work Phone: [facility] 05-25-2024 09:46-0400 Heart rate 105 /min Talita Kranthi METALSMITH HELPER.PHYSICAL METALLURGIST Work Phone: [facility] 05-25-2024 09:46-0400 Respiratory rate 18 /min Talita Kranthi METALSMITH HELPER.PHYSICAL METALLURGIST Work Phone: [facility] 05-25-2024 09:46-0400 SaO2% (BldA) [Mass fraction] 99 % Talita Krnathi METALSMITH HELPER.PHYSICAL METALLURGIST Work Phone: [facility] 05-25-2024 09:46-0400 Systolic blood pressure 108 mm[Hg] Talita Littlejohn METALSMITH HELPER.PHYSICAL METALLURGIST Work Phone: [facility] 08-15-2021 08:30-0400 Body height 165.1 cm PA Chu Tamayo PA Work Phone: [facility] Work Phone: 08-15-2021 08:30-0400 Body mass index (BMI) [Ratio] 20.5 kg/m2 PA Chu Tamayo PA Work Phone: [facility] Work Phone: 08-15-2021 08:30-0400 Body temperature 98.6 [degF] JAMIE Tamayo PA Work Phone: [facility] Work Phone: 08-15-2021 08:30-0400 Body weight 55.79 kg JAMIE Tamayo PA Work Phone: [facility] Work Phone: 08-15-2021 08:30-0400 Diastolic blood pressure 68 mm[Hg] JAMIE Tamayo PA Work Phone: [facility] Work Phone: 08-15-2021 08:30-0400 Heart rate 88 /min PA Chu Tamayo PA Work Phone: [facility] Work Phone: 08-15-2021 08:30-0400 Respiratory rate 14 /min PA Chu Tamayo PA Work Phone: [facility] Work Phone: 08-15-2021 08:30-0400 SaO2% (BldA) [Mass fraction] 99 % PA Chu Tamayo PA Work Phone: [facility] Work Phone: 08-15-2021 08:30-0400 Systolic blood pressure 118 mm[Hg] JAMIE AYALA Work Phone: [facility] Work Phone: Encounters Encounter Date Encounter Type Care Provider Facility Start: 09-16-2024 End: 09-16-2024 Follow-up encounter Radhajostin WangWilfredloly HATFIELDPHYSICAL METALLURGIST Work Phone: OB/Gynecology Comment on above: Results Start: 09-15-2024 End: 09-15-2024 Patient encounter procedure Dayanara Maldonado APRN.PHYSICAL METALLURGIST Work Phone: [facility]/Gynecology Comment on above: Encounter for gyneco logical examination (general) (routine) without abnormal findings (Primary Dx); Screening for cervical cancer; Encounter for screening for human papillomavirus (HPV); Screen for STD (sexually transmitted disease) Start: 09-15-2024 End: 09-15-2024 Patient encounter status Dayanara Maldonado APRN.PHYSICAL METALLURGIST Work Phone: [facility] Start: 09-15-2024 End: 09-15-2024 ambulatory DAYANARA MALDONADO Facility:[facility] Start: 09-15-2024 Encounter for gynecological examination (general) (routine) without abnormal findings DAYANARA MALDONADO [facility] Start: 08-27-2024 End: 08-27-2024 Emergency department patient visit Joy Pedraza NP Facility:[facility] Start: 08-26-2024 End: 08-26-2024 Office outpatient visit 25 minutes Kushal Gayle MD Work Phone: [facility] Comment on above: Rash (Primary Dx); Localized swelling, mass, or lump of upper extremity, bilateral Start: 08-26-2024 End: 08-26-2024 ambulatory KUSHAL GAYLE Facility:[facility] Start: 08-24-2024 End: 08-24-2024 Office outpatient visit 25 minutes Saida Omer APRN.PHYSICAL METALLURGIST Work Phone: [facility] Comment on above: Hives (Primary Dx); Facial swelling Start: 08-24-2024 End: 08-24-2024 ambulatory SAIDA OMER Facility:[facility] Start: 05-25-2024 End: 05-25-2024 ambulatory KUSHAL GAYLE Facility:[facility] Start: 05-25-2024 End: 05-25-2024 Patient encounter procedure Talita Littlejohn APRN.OSMAN Work Phone: [facility] Comment on above: Rash (Primary Dx); Fluid collection (edema) in the arms, legs, hands and feet Start: 10-12-2021 End: 10-12-2021 ambulatory JAMIE AYALA Work Phone: [facility] Work Phone: Start: 10-12-2021 End: 10-12-2021 Patient encounter procedure JAMIE AYALA Work Phone: [facility], Specimen Start: 08-15-2021 End: 08-15-2021 Patient encounter procedure JAMIE AYALA Work Phone: [facility] Start: 05-31-2020 Patient encounter procedure ORA FERNANDEZ [facility] Start: 12-31-2019 End: 01-01-2020 Patient encounter procedure ADELAIDE [facility] Start: 12-10-2019 End: 12-11-2019 [facility] Start: 11-21-2019 End: 11-22-2019 Patient encounter procedure [facility] Plan of Treatment Date Care Activity Detail Author Start: 09-16-2025 End: 09-16-2025 Patient encounter procedure 09/16/2025 2:45 PM EDT Office Visit OB/Gynecology [address] [place], [place] [id number] Dayanara Maldonado APRN.PHYSICAL METALLURGIST [address] [place] [place] [address] Annual OB/Gynecology Comment on above: Annual Start: 10-20-2024 Influenza vaccination Influenza Vacc ine (#1) [facility] Start: 09-15-2024 End: 12-15-2024 Hepatitis B virus surface Ag [Presence] in Serum [facility] Comment on above: Expected: 09/15/2024 , Expires: 12/15/2024 Start: 09-15-2024 End: 12-15-2024 Hepatitis C virus Ab [Presence] in Serum [facility] Comment on above: Expected: 09/15/2024 , Expires: 12/15/2024 Start: 09-15-2024 End: 12-15-2024 HIV 1+2 Ab [Presence] in Serum or Plasma by Immunoassay [facility] Comment on above: Expected: 09/15/2024 , Expires: 12/15/2024 Start: 09-15-2024 End: 12-15-2024 SYPHILIS TREPONEMAL W/REFLEX [facility] Work Phone: Comment on above: Expected: 09/15/2024 , Expires: 12/15/2024 Start: 09-15-2024 End: 09-15-2024 Patient encounter procedure 09/15/2024 9:15 AM EDT Office Visit OB/Gynecology [address] [place], [place] [id number] Dayanara Maldonado APRN.PHYSICAL METALLURGIST [address] [place] [address] New SCANNER SUPERVISOR/establish care OB/Gynecology Comment on above: New SCANNER SUPERVISOR/establish ca re Start: 10-21-2023 Covid-19 Vaccine ( season) Covid-19 Vaccine ( season) [facility] Start: 10-21-2023 Influenza vaccination Influenza Vacc ine (#1) [facility] Start: 12-12-2021 Urine microalbumin profile DTaP,Tdap,Td Vaccine (7 - Td or Tdap) [facility] Start: 12-20-2019 Screening for malign ant neoplasm of cervix Cervical Cancer Screening [facility] Start: 2016 Anxiety Screening Anxiety Screening [facility] Start: 2016 Depression Screening Depression Scre ening [facility] Start: 2016 Hepatitis C screening Hepatitis C Sc reening [facility] Start: 2016 HIV screening HIV Screening [facility] Start: 2012 Peds To Adult Transition Annual Assessment Peds To Adult Transition Annual Assessment [facility] Start: 2010 Peds To Adult Transition Initial Discussion Peds To Adult Transition Initial Discussion [facility] Chlamydia trachomatis+Neisseria gonorrhoeae DNA [Presence] in Unspecified specimen by OMAYRA with probe detection GONORRHEA/CHLAMYDIA NAAT Lab Routine Screen for STD (sexually transmitted disease) 09/15/2024 9:[address] [facility] PAP TEST PAP TEST Lab Yazmin juarez Encounter for gynecological examination (general) (routine) without abnormal findings Screening for cervical cancer Encounter for screening for human papillomavirus (HPV) 09/15/2024 9:[address] [facility] Path report.final Dx Spec [facility] Work Phone: TRICHOMONAS VAGINALI S NAAT TRICHOMONAS VAGINALIS NAAT Lab Routine Screen for STD (sexually transmitted disease) 09/15/2024 9:[address] [facility] Immunizations Immunization Date Immunization Notes Care Provider Aicha kenney 04-13-2021 Human Papillomavirus 9-valent vaccine Talita Littlejohn APRN.PHYSICAL METALLURGIST Work Phone: [facility] 12-08-2020 Human Papillomavirus 9-valent vaccine Talita Littlejohn APRN.PHYSICAL METALLURGIST Work Phone: [facility] 10-05-2020 Human Papillomavirus 9-valent vaccine Talita Littlejohn APRN.PHYSICAL METALLURGIST Work Phone: [facility] 05-23-2020 COVID-19 original va ccine, age 12+ yr, monovalent ([employer] - PURPLE TOP) Talita Littlejohn APRN.PHYSICAL METALLURGIST Work Phone: [facility] 11-30-2015 meningococcal oligosaccharide (groups A, C, Y and W-135) diphtheria toxoid conjugate vaccine (MCV4O) Talita Littlejohn APRN.PHYSICAL METALLURGIST Work Phone: [facility] 12-13-2011 meningococcal ACWY vaccine, unspecified formulation Talita Littlejohn APRN.PHYSICAL METALLURGIST Work Phone: [facility] 12-13-2011 tetanus toxoid, redu dago diphtheria toxoid, and acellular pertussis vaccine, adsorbed Talita Littlejohn APRN.PHYSICAL METALLURGIST Work Phone: [facility] 08-28-2007 hepatitis A vaccine, pediatric/adolescent dosage, 2 dose schedule Talita Kranthi METALSMITH HELPER.PHYSICAL METALLURGIST Work Phone: [facility] 08-01-2006 hepatitis A vaccine, pediatric/adolescent dosage, 2 dose schedule Talita Kranthi METALSMITH HELPER.PHYSICAL METALLURGIST Work Phone: [facility] 08-01-2006 varicella virus vaccine Masood a Kranthi METALSMITH HELPER.PHYSICAL METALLURGIST Work Phone: [facility] 01-16-2003 diphtheria, tetanus toxoids and acellular pertussis vaccine Talita Kranthi METALSMITH HELPER.PHYSICAL METALLURGIST Work Phone: [facility] 01-16-2003 measles, mumps and r ubella virus vaccine Talita Kranthi METALSMITH HELPER.PHYSICAL METALLURGIST Work Phone: [facility] 01-16-2003 poliovirus vaccine, inactivated Talita Kranthi METALSMITH HELPER.PHYSICAL METALLURGIST Work Phone: [facility] 12-27-2000 pneumococcal conjuga te vaccine, 7 valent Talita Kranthi METALSMITH HELPER.PHYSICAL METALLURGIST Work Phone: [facility] 05-31-2000 diphtheria, tetanus toxoids and acellular pertussis vaccine Talita Kranthi METALSMITH HELPER.PHYSICAL METALLURGIST Work Phone: [facility] 05-31-2000 haemophilus influenz ae type b vaccine, HbOC conjugate Talita Kranthi METALSMITH HELPER.PHYSICAL METALLURGIST Work Phone: [facility] 05-31-2000 hepatitis B vaccine, pediatric or pediatric/adolescent dosage Talita Kranthi METALSMITH HELPER.PHYSICAL METALLURGIST Work Phone: [facility] 05-31-2000 pneumococcal conjuga te vaccine, 7 valent Talita Kranthi METALSMITH HELPER.PHYSICAL METALLURGIST Work Phone: [facility] 01-03-2000 measles, mumps and r ubella virus vaccine Talita Kranthi METALSMITH HELPER.PHYSICAL METALLURGIST Work Phone: [facility] 01-03-2000 varicella virus vaccine Masood a Kranthi METALSMITH HELPER.PHYSICAL METALLURGIST Work Phone: [facility] 09-28-1999 hepatitis B vaccine, pediatric or pediatric/adolescent dosage Talita Kranthi METALSMITH HELPER.PHYSICAL METALLURGIST Work Phone: [facility] 09-28-1999 poliovirus vaccine, inactivated Talita Kranthi METALSMITH HELPER.PHYSICAL METALLURGIST Work Phone: [facility] 07-06-1999 diphtheria, tetanus toxoids and acellular pertussis vaccine Talita Kranthi METALSMITH HELPER.PHYSICAL METALLURGIST Work Phone: [facility] 07-06-1999 haemophilus influenz ae type b vaccine, HbOC conjugate Talita Kranthi METALSMITH HELPER.PHYSICAL METALLURGIST Work Phone: [facility] 07-06-1999 hepatitis B vaccine, pediatric or pediatric/adolescent dosage Talita Kranthi METALSMITH HELPER.PHYSICAL METALLURGIST Work Phone: [facility] 04-27-1999 diphtheria, tetanus toxoids and acellular pertussis vaccine Talita Kranthi METALSMITH HELPER.PHYSICAL METALLURGIST Work Phone: [facility] 04-27-1999 haemophilus influenz ae type b vaccine, PRP-OMP conjugate Talita Kranthi METALSMITH HELPER.PHYSICAL METALLURGIST Work Phone: [facility] 04-27-1999 poliovirus vaccine, inactivated Talita Kranthi METALSMITH HELPER.PHYSICAL METALLURGIST Work Phone: [facility] 02-23-1999 diphtheria, tetanus toxoids and acellular pertussis vaccine Talita Kranthi METALSMITH HELPER.PHYSICAL METALLURGIST Work Phone: [facility] 02-23-1999 haemophilus influenz ae type b vaccine, PRP-OMP conjugate Talita Kranthi METALSMITH HELPER.PHYSICAL METALLURGIST Work Phone: [facility] 02-23-1999 poliovirus vaccine, inactivated Talita Kranthi METALSMITH HELPER.PHYSICAL METALLURGIST Work Phone: [facility] Payers Date Payer Category Payer Self-pay 2018 [facility] [id number] 2018 [id number] Unknown [id number] Social History Date Type Detail [facility] Work Phone: Start: 2000 Sex Assigned At Female W [facility] Work Phone: Start: 05-25-2024 Tobacco smoking stat [facility] Never smoked tobacco [facility] Start: 05-25-2024 Tobacco use and exposure Smokeless tobacco non-user [facility] Start: 05-25-2024 End: 09-15-2024 History of [address] [facility] Start: 05-25-2024 End: 09-15-[address] [facility] Start: 2000 Sex assigned at Not on file [facility] Start: 09-15-2024 Alcoholic beverage intake Current drinker of alcohol (finding) [facility] National Score (1-10 0), lower number is lower risk 80 [facility] Clinical Notes 05-25-2024 to 09-16-2024 Telephone Encounter - Kajal Feliciano RN - 09/16/2024 3:34 PM EDTTelephone Encounter - Kajal Feliciano RN - 09/16/2024 3:34 PM EDDayanara Jurado APRN.CNP - 09/15/2024 9:14 AM EDTPatient Instructions Note Date & Type Note Facility 09-16-2024 Telephone encounter Note Patient notified. Kajal Feliciano RN [facility] 09-16-2024 Miscellaneous Notes Patient notified. Kajal Feliciano RN Please let the pt know that all her STD testing is negative. Radha Hardin APRN.CNP documented in this encounter [facility] 09-16-2024 Telephone encounter Note Please let the pt know that all her STD testing is negative. Radha Hardin APRN.CNP [facility] Work Phone: 09-15-2024 Note HNO ID: [id number] Author: DAYANARA MALDONADO APRN.CNP Service: ? 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 Javier is a 23 year old who presents for an annual gynecologic exam without complaints. Age at Menarche: 11 Still get period: Yes, Mirena placed 2021 LMP: 08/20/2024 Menses: irregular with IUD Menstrual flow: Moderate Bleeding amount bothersome: No Bleeding between periods: No Period symptoms: Acne, Breast tenderness, Cramps, and Mood change Sexually active: Yes Contraception: Condom and IUD Contraception frequency: Always HPV vaccine: Yes x3 HPV:N/A Last pap smear: unknown History of abnormal pap: No Bothersome pelvic pain: No Last mammogram: never OB History No obstetric history on file. 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 History LMP: 08/20/2024 (Exact Date), IUD Age at Menarche: 11 Age at First : Age at Menopause: 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 History Comments: Sexual Activity: Yes; Male Contraception: I.U.D., Condom PAST MEDICAL HISTORY Diagnosis Date Generalized anxiety disorder depression Pt reported PAST SURGICAL HISTORY Procedure Laterality Date EXTRACTION ERUPTED TOOTH/EXR Pt reported FAMILY HISTORY Problem Relation Age of Onset Diabetes Mother No Known Problems Father Breast Cancer Maternal Grandmother SOCIAL HISTORY Social History Tobacco Use Smoking status: Never Smokeless tobacco: Never Vaping Use Vaping status: Never Used Substance Use Topics Alcohol use: Yes Drug use: Never REVIEW OF SYSTEMS Abdomen: No abdominal pain, nausea, vomiting, diarrhea, or constipation. No bloating, early satiety, indigestion, or increased flatulence. Bladder: No dysuria, gross hematuria, urinary frequency, urinary urgency, or incontinence. Breast: No breast lumps, nipple d/c, overlying skin changes, redness or skin retraction. Allergies and current medication updated:Yes SENSITIVE EXAM: The sensitive examination was discussed with the Patient or Patient's Authorized Timber Sprinkler. As applicable, any other physician, advance practice provider, medical student, or other health professional student that will be observing or involved in the sensitive examination for educational or training purposes was discussed with the Patient or Authorized Timber Sprinkler. The Patient or Authorized Timber Sprinkler has agreed to proceed with the sensitive examination. (Sensitive examination includes inspection and/or palpation of the breasts, pelvis, prostate and anorectal regions). EXAM: BP 122/70 Ht 5' 5.276" (1.66m) Wt 165 lb 6.4 oz (75.0kg) LMP 08/20/2024 BMI 27.29 kg/(m2). GENERAL: pleasant, female in no apparent distress HEENT: Normocephalic, atraumatic, mucus membranes moist, and no lesions NECK: Supple, full range of motion, no adenopathy, and thyroid normal DERMATOLOGY: Normal, without lesions, non-icteric, and non-hirsute BREAST: soft, non-tender, symmetric, no dominant mass, normal nipple-areolar complex, no lymphadenopathy, and no nipple discharge CHEST: Normal inspiratory effort ABDOMEN: soft, non-tender, and no masses PELVIC: external genitalia normal, normal Bartholin's glands, urethra, [place]'s glands, no vulvar lesions, no cervical lesions, good vaginal support, physiologic discharge present, normal appearing perineal body and perianal region, IUD strings visible BIMANUAL: uterus normal size, shape and consistency, no adnexal masses, and non-tender RECTOVAGINAL: deferred. NEURO: alert and oriented x3,exam grossly non-focal EXTREMITIES: normal ASSESSMENT/PLAN: 1) Health maintenance: Pap done with reflex HPV. Mammogram starting age 40. HPV vaccine: completed series 2) Contraception: IUD. 3) STD screening: Accepts full STI screeening including HIV, Syphilis and T Vaginalis. 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 Javier is a 23 year old who presents for an annual gynecologic exam without complaints. Age at Menarche: 11 Still get period: Yes, Mirena placed 2021 LMP: 08/20/2024 Menses: irregular with IUD Menstrual flow: Moderate Bleeding amount bothersome: No Bleeding between periods: No Period symptoms: Acne, Breast tenderness, Cramps, and Mood change Sexually active: Yes Contraception: Condom and IUD Contraception frequency: Always HPV vaccine: Yes x3 HPV:N/A Last pap smear: unknown History of abnormal pap: No Bothersome pelvic pain: No Last mammogram: never OB History No obstetric history on file. 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 History LMP: 08/20/2024 (Exact Date), IUD Age at Menarche: 11 Age at First : Age at Menopause: 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 History Comments: Sexual Activity: Yes; Male Contraception: I.U.D., Condom PAST MEDICAL HISTORY Diagnosis Date Generalized anxiety disorder depression Pt reported PAST SURGICAL HISTORY Procedure Laterality Date EXTRACTION ERUPTED TOOTH/EXR Pt reported FAMILY HISTORY Problem Relation Age of Onset Diabetes Mother No Known Problems Father Breast Cancer Maternal Grandmother SOCIAL HISTORY Social History Tobacco Use Smoking status: Never Smokeless tobacco: Never Vaping Use Vaping status: Never Used Substance Use Topics Alcohol use: Yes Drug use: Never REVIEW OF SYSTEMS Abdomen: No abdominal pain, nausea, vomiting, diarrhea, or constipation. No bloating, early satiety, indigestion, or increased flatulence. Bladder: No dysuria, gross hematuria, urinary frequency, urinary urgency, or incontinence. Breast: No breast lumps, nipple d/c, overlying skin changes, redness or skin retraction. Allergies and current medication updated:Yes SENSITIVE EXAM: The sensitive examination was discussed with the Patient or Patient's Authorized Timber Sprinkler. As applicable, any other physician, advance practice provider, medical student, or other health professional student that will be observing or involved in the sensitive examination for educational or training purposes was discussed with the Patient or Authorized Timber Sprinkler. The Patient or Authorized Timber Sprinkler has agreed to proceed with the sensitive examination. (Sensitive examination includes inspection and/or palpation of the breasts, pelvis, prostate and anorectal regions). EXAM: BP 122/70 Ht 5' 5.276" (1.66m) Wt 165 lb 6.4 oz (75.0kg) LMP 08/20/2024 BMI 27.29 kg/(m^2). GENERAL: pleasant, female in no apparent distress HEENT: Normocephalic, atraumatic, mucus membranes moist, and no lesions NECK: Supple, full range of motion, no adenopathy, and thyroid normal DERMATOLOGY: Normal, without lesions, non-icteric, and non-hirsute BREAST: soft, non-tender, symmetric, no dominant mass, normal nipple-areolar complex, no lymphadenopathy, and no nipple discharge CHEST: Normal inspiratory effort ABDOMEN: soft, non-tender, and no masses PELVIC: external genitalia normal, normal Bartholin's glands, urethra, [place]'s glands, no vulvar lesions, no cervical lesions, good vaginal support, physiologic discharge present, normal appearing perineal body and perianal region, IUD strings visible BIMANUAL: uterus normal size, shape and consistency, no adnexal masses, and non-tender RECTOVAGINAL: deferred. NEURO: alert and oriented x3,exam grossly non-focal EXTREMITIES: normal ASSESSMENT/PLAN: 1) Health maintenance: Pap done with reflex HPV. Mammogram starting age 40. HPV vaccine: completed series 2) Contraception: IUD. 3) STD screening: Accepts full STI screeening including HIV, Syphilis and T Vaginalis. 4) Follow up one year or sooner as needed Dayanara Maldonado APRN.PHYSICAL METALLURGIST documented in this encounter [facility] 08-26-2024 Note HNO ID: [id number] Author: KUSHAL GAYLE MD Service: ? Author Type: Physician Type: Progress Notes Filed: 08/26/2024 09:24 Note Text: URGENT CARE SYMONE Clemens is a 23 year old female. Patient presents with: Rash: hives seen on Sunday given medrol, swelling in hands x this am Pt here with ongoing rash on body and face started 3 days ago doing yardwork given a medrol dosepak but has not helped pt also here has bilateral swelling of hand no facial swelling no tongue swelling no trouble breathing Rash Pertinent negatives include no cough, fatigue, fever, shortness of breath or sore throat. Review of Systems Constitutional: Negative for chills, fatigue and fever. HENT: Negative for facial swelling, sore throat and trouble swallowing. Respiratory: Negative for cough, chest tightness, shortness of breath, wheezing and stridor. Cardiovascular: Negative for chest pain, palpitations and leg swelling. Musculoskeletal: Positive for joint swelling and myalgias. Skin: Positive for rash. Neurological: Negative for dizziness and headaches. Objective BP 122/80 Pulse 118 Temp 36.1 ?C (96.9 ?F) Resp 18 Wt 77 kg (169 lb 12.1 oz) SpO2 99% Physical Exam Vitals and nursing note reviewed. Constitutional: Appearance: Normal appearance. She is not ill-appearing. HENT: Mouth/Throat: Mouth: Mucous membranes are moist. Pharynx: Oropharynx is clear. Eyes: Extraocular Movements: Extraocular movements intact. Pupils: Pupils are equal, round, and reactive to light. Cardiovascular: Rate and Rhythm: Regular rhythm. Tachycardia present. Heart sounds: Normal heart sounds. Pulmonary: Effort: Pulmonary effort is normal. Breath sounds: Normal breath sounds. No stridor. No wheezing, rhonchi or rales. Chest: Chest wall: No tenderness. Musculoskeletal: General: Normal range of motion. Cervical back: Normal range of motion and neck supple. Comments: Bilateral diffuse swelling of hand s no warmth no redness Skin: Findings: Rash present. Comments: Blancheable red patchy rash on extremities and face Neurological: Mental Status: She is alert. {ASSESSMENT/PLAN: 1. Rash - ICD9: 782.1, ICD10: R21 (primary diagnosis) - PREDNISONE 20 MG TABLET 2. Localized swelling, mass, or lump of upper extremity, bilateral - ICD9: 782.2, ICD10: R22.33 Advised pt to follow up with pcp for a referral if no better ED if any worse - PREDNISONE 20 MG TABLET Kushal Gayle MD History and Record Review Clinical information obtained from an independent historian. History obtained from or confirmed by: friend. External record(s) reviewed: prior outpatient record. Systemic symptoms present included: swelling Differential Diagnoses - rash is more likely for the following reason(s): suggested by HANDP - anphylaxis is less likely for the following reason(s): no facial swelling no breathing issues, HANDP not suggestive Disposition The patient was discharged. Procedures [facility] 08-26-2024 History of Present illness Narrative URG[facility] CARE SYMONE Jose Sasha Clemens is a 23 year old female. Patient presents with: Rash: hives seen on Sunday given medrol, swelling in hands x this am Pt here with ongoing rash on body and face started 3 days ago doing yardwork given a medrol dosepak but has not helped pt also here has bilateral swelling of hand no facial swelling no tongue swelling no trouble breathing Rash Pertinent negatives include no cough, fatigue, fever, shortness of breath or sore throat. Review of Systems Constitutional: Negative for chills, fatigue and fever. HENT: Negative for facial swelling, sore throat and trouble swallowing. Respiratory: Negative for cough, chest tightness, shortness of breath, wheezing and stridor. Cardiovascular: Negative for chest pain, palpitations and leg swelling. Musculoskeletal: Positive for joint swelling and myalgias. Skin: Positive for rash. Neurological: Negative for dizziness and headaches. Objective BP 122/80 Pulse 118 Temp 36.1 C (96.9 F) Resp 18 Wt 77 kg (169 lb 12.1 oz) SpO2 99% Physical Exam Vitals and nursing note reviewed. Constitutional: Appearance: Normal appearance. She is not ill-appearing. HENT: Mouth/Throat: Mouth: Mucous membranes are moist. Pharynx: Oropharynx is clear. Eyes: Extraocular Movements: Extraocular movements intact. Pupils: Pupils are equal, round, and reactive to light. Cardiovascular: Rate and Rhythm: Regular rhythm. Tachycardia present. Heart sounds: Normal heart sounds. Pulmonary: Effort: Pulmonary effort is normal. Breath sounds: Normal breath sounds. No stridor. No wheezing, rhonchi or rales. Chest: Chest wall: No tenderness. Musculoskeletal: General: Normal range of motion. Cervical back: Normal range of motion and neck supple. Comments: Bilateral diffuse swelling of hand s no warmth no redness Skin: Findings: Rash present. Comments: Blancheable red patchy rash on extremities and face Neurological: Mental Status: She is alert. {ASSESSMENT/PLAN: 1. Rash - ICD9: 782.1, ICD10: R21 (primary diagnosis) - PREDNISONE 20 MG TABLET 2. Localized swelling, mass, or lump of upper extremity, bilateral - ICD9: 782.2, ICD10: R22.33 Advised pt to follow up with pcp for a referral if no better ED if any worse - PREDNISONE 20 MG TABLET Kushal Gayle MD History and Record Review Clinical information obtained from an independent historian. History obtained from or confirmed by: friend. External record(s) reviewed: prior outpatient record. Systemic symptoms present included: swelling Differential Diagnoses - rash is more likely for the following reason(s): suggested by H&P - anphylaxis is less likely for the following reason(s): no facial swelling no breathing issues, H&P not suggestive Disposition The patient was discharged. Procedures documented in this encounter [facility] 08-26-2024 Instructions Kushal Gayle MD - 08/26/2024 9:15 AM EDT [facility] [place] [id number] [place] [id number] Emergency Department Diagnosis: Assessment NONSPECIFIC RASH: Our exam shows you have a rash which has no clear cause. Rashes can result from infections, allergies, or irritation of the skin by chemicals or other environmental factors. Rashes can also result from scratching or rubbing the skin too much to relieve itching. Further medical examination may be needed to identify the specific cause and proper treatment of your skin rash. You should treat your rash as recommended by your doctor. If you have itching, you should avoid scratching as much as possible, as this further damages the skin. Ask your doctor or pharmacist if you have any questions about what topical medicines may help relieve your symptoms. Call your doctor right away if your rash is not better in 2-3 days, if it worsens, or if there are signs of infection (increased pain, redness, drainage or pus). documented in this encounter [facility] 08-24-2024 Note HNO ID: [id number] Author: SAIDA OMER APRN.PHYSICAL METALLURGIST Service: ? Author Type: Nurse Practitioner Type: Progress Notes Filed: 08/24/2024 11:03 Note Text: [facility] Subjective Sasha Clemens is a 23 year old female c/o sudden hives on forehead with upper eyelid swelling bilaterally, first noticed this morning while cleaning face, no known exposures, was outside yesterday, made fish for dinner, history of sensitive skin Patient presents with: Hives: On face x this AM The history is provided by the patient. Hives This is a new problem. The current episode started today. The problem occurs constantly. The problem has been unchanged. Associated symptoms include a rash. Pertinent negatives include no abdominal pain, anorexia, arthralgias, change in bowel habit, chest pain, chills, congestion, coughing, diaphoresis, fatigue, fever, headaches, joint swelling, myalgias, nausea, neck pain, numbness, sore throat, swollen glands, urinary symptoms, vertigo, visual change, vomiting or weakness. Nothing aggravates the symptoms. Treatments tried: zyrtec. The treatment provided no relief. Review of Systems Constitutional: Negative for chills, diaphoresis, fatigue and fever. HENT: Positive for facial swelling. Negative for congestion, drooling, postnasal drip, rhinorrhea, sinus pain and sore throat. Eyes: Negative. Respiratory: Negative for cough, chest tightness and shortness of breath. Cardiovascular: Negative for chest pain. Gastrointestinal: Negative for abdominal pain, anorexia, change in bowel habit, nausea and vomiting. Musculoskeletal: Negative for arthralgias, joint swelling, myalgias and neck pain. Skin: Positive for rash. Negative for wound. Neurological: Negative for vertigo, weakness, numbness and headaches. Objective BP 111/77 Pulse 106 Temp 36.7 ?C (98.1 ?F) Resp 18 Wt 76.3 kg (168 lb 3.4 oz) SpO2 97% Physical Exam Vitals and nursing note reviewed. Constitutional: Appearance: Normal appearance. HENT: Head: Normocephalic. No right periorbital erythema or left periorbital erythema. Right Ear: External ear normal. Left Ear: External ear normal. Nose: Nose normal. Mouth/Throat: Lips: [place]. Mouth: Mucous membranes are moist. Pharynx: Oropharynx is clear. Eyes: General: Vision grossly intact. Extraocular Movements: Extraocular movements intact. Conjunctiva/sclera: Conjunctivae normal. Pupils: Pupils are equal, round, and reactive to light. Cardiovascular: Rate and Rhythm: Regular rhythm. Heart sounds: Normal heart sounds. Pulmonary: Effort: Pulmonary effort is normal. Breath sounds: Normal breath sounds. Lymphadenopathy: Cervical: No cervical adenopathy. Skin: General: Skin is dry. Neurological: General: No focal deficit present. Mental Status: She is alert. {ASSESSMENT/PLAN: 1. Hives - ICD9: 708.9, ICD10: L50.9 (primary diagnosis) - Likely viral or allergic etiology discussed with patient - Treatment with antihistamine- Zyrtec 10mg po QD and systemic steriods taper- see orders - Anti itch therapy of OTC 1% Hydrocortisone cream and Oral Benydryl recommended prn - Follow up if symptoms persist or worsen. - METHYLPREDNISOLONE 4 MG TABLETS IN A DOSE PACK 2. 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 - Patient education provided today - Discussed with patient medications that are indicated and how to use the medications and what the potential side effects are. - Warning signs of worsening condition explained to patient -Instructed to follow up with PCP if symptoms not improving in next 2-3 days - Patient left in stable condition after questions answered and patient verbalizes understanding - Instructed to go to Emergency Department right away with any severe worsening chest pain, shortness of breath, headache, dizziness, weakness, numbness,leg swelling , tingling, problems walking or speaking or any other concerning symptoms History and Record Review External record(s) reviewed: prior outpatient record. Differential Diagnoses - urticaria is more likely for the following reason(s): suggested by HANDP - cellulitis is less likely for the following reason(s): HANDP not suggestive Disposition The patient was discharged. OTC Medications were advised: [facility] 08-24-2024 History of Present illness Narrative Images from the original note were not included. [facility] Subjective Sasha Clemens is a 23 year old female c/o sudden hives on forehead with upper eyelid swelling bilaterally, first noticed this morning while cleaning face, no known exposures, was outside yesterday, made fish for dinner, history of sensitive skin Patient presents with: Hives: On face x this AM The history is provided by the patient. Hives This is a new problem. The current episode started today. The problem occurs constantly. The problem has been unchanged. Associated symptoms include a rash. Pertinent negatives include no abdominal pain, anorexia, arthralgias, change in bowel habit, chest pain, chills, congestion, coughing, diaphoresis, fatigue, fever, headaches, joint swelling, myalgias, nausea, neck pain, numbness, sore throat, swollen glands, urinary symptoms, vertigo, visual change, vomiting or weakness. Nothing aggravates the symptoms. Treatments tried: zyrtec. The treatment provided no relief. Review of Systems Constitutional: Negative for chills, diaphoresis, fatigue and fever. HENT: Positive for facial swelling. Negative for congestion, drooling, postnasal drip, rhinorrhea, sinus pain and sore throat. Eyes: Negative. Respiratory: Negative for cough, chest tightness and shortness of breath. Cardiovascular: Negative for chest pain. Gastrointestinal: Negative for abdominal pain, anorexia, change in bowel habit, nausea and vomiting. Musculoskeletal: Negative for arthralgias, joint swelling, myalgias and neck pain. Skin: Positive for rash. Negative for wound. Neurological: Negative for vertigo, weakness, numbness and headaches. Objective BP 111/77 Pulse 106 Temp 36.7 C (98.1 F) Resp 18 Wt 76.3 kg (168 lb 3.4 oz) SpO2 97% Physical Exam Vitals and nursing note reviewed. Constitutional: Appearance: Normal appearance. HENT: Head: Normocephalic. No right periorbital erythema or left periorbital erythema. Right Ear: External ear normal. Left Ear: External ear normal. Nose: Nose normal. Mouth/Throat: Lips: [place]. Mouth: Mucous membranes are moist. Pharynx: Oropharynx is clear. Eyes: General: Vision grossly intact. Extraocular Movements: Extraocular movements intact. Conjunctiva/sclera: Conjunctivae normal. Pupils: Pupils are equal, round, and reactive to light. Cardiovascular: Rate and Rhythm: Regular rhythm. Heart sounds: Normal heart sounds. Pulmonary: Effort: Pulmonary effort is normal. Breath sounds: Normal breath sounds. Lymphadenopathy: Cervical: No cervical adenopathy. Skin: General: Skin is dry. Neurological: General: No focal deficit present. Mental Status: She is alert. {ASSESSMENT/PLAN: 1. Hives - ICD9: 708.9, ICD10: L50.9 (primary diagnosis) - Likely viral or allergic etiology discussed with patient - Treatment with antihistamine- Zyrtec 10mg po QD and systemic steriods taper- see orders - Anti itch therapy of OTC 1% Hydrocortisone cream and Oral Benydryl recommended prn - Follow up if symptoms persist or worsen. - METHYLPREDNISOLONE 4 MG TABLETS IN A DOSE PACK 2. Facial swelling - ICD9: 784.2, ICD10: R22.0 - METHYLPREDNISOLONE 4 MG TABLETS IN A DOSE PACK Saida Omer APRN.CNP -I have reviewed and updated with the patient: allergies, VS, current medications, Past Medical History,Past Surgical History,Past Family Medical History, Past Social History. - Patient education provided today - Discussed with patient medications that are indicated and how to use the medications and what the potential side effects are. - Warning signs of worsening condition explained to patient -Instructed to follow up with PCP if symptoms not improving in next 2-3 days - Patient left in stable condition after questions answered and patient verbalizes understanding - Instructed to go to Emergency Department right away with any severe worsening chest pain, shortness of breath, headache, dizziness, weakness, numbness,leg swelling , tingling, problems walking or speaking or any other concerning symptoms History and Record Review External record(s) reviewed: prior outpatient record. Differential Diagnoses - urticaria is more likely for the following reason(s): suggested by H&P - cellulitis is less likely for the following reason(s): H&P not suggestive Disposition The patient was discharged. OTC Medications were advised: documented in this encounter [facility] 08-24-2024 Instructions Saida Omer APRN.CNP - 08/24/2024 10:51 AM EDT ASSESSMENT/PLAN: 1. Hives - ICD9: 708.9, ICD10: L50.9 (primary diagnosis) - Likely viral or allergic etiology discussed with patient - Treatment with antihistamine- Zyrtec 10mg po QD and systemic steriods taper- see orders - Anti itch therapy of OTC 1% Hydrocortisone cream and Oral Benydryl recommended prn - Follow up if symptoms persist or worsen. - METHYLPREDNISOLONE 4 MG TABLETS IN A DOSE PACK 2. Facial swelling - ICD9: 784.2, ICD10: R22.0 - METHYLPREDNISOLONE 4 MG TABLETS IN A DOSE PACK Sadia Omer APRN.CNP -I have reviewed and updated with the patient: allergies, VS, current medications, Past Medical History,Past Surgical History,Past Family Medical History, Past Social History. - Patient education provided today - Discussed with patient medications that are indicated and how to use the medications and what the potential side effects are. - Warning signs of worsening condition explained to patient -Instructed to follow up with PCP if symptoms not improving in next 2-3 days - Patient left in stable condition after questions answered and patient verbalizes understanding - Instructed to go to Emergency Department right away with any severe worsening chest pain, shortness of breath, headache, dizziness, weakness, numbness,leg swelling , tingling, problems walking or speaking or any other concerning symptoms Patient education: Hives (The Basics) What are hives? -- Hives are raised, red patches of skin that are usually very itchy. They can happen because of an allergy or other causes. In most cases, hives come and go within a few hours. But they can show up again and again in some people. Some people who get hives also get a condition called "angioedema." Angioedema is puffiness or swelling. It usually happens in the face, eyelids, ears, mouth, hands, feet, or genitals. Some people who get hives or angioedema are having a dangerous allergic reaction. See a doctor or nurse right away if you suddenly get hives or get puffy and also have any of these symptoms: ?Trouble breathing ?Tightness in the throat ?Nausea and vomiting ?Cramps or stomach pain ?Passing out Why did I get hives? -- If you just got hives for the first time, you might have a new allergy to something. People can get hives because of allergies to: ?Medicines, such as antibiotics or aspirin ?Foods, such as eggs, nuts, fish, or shellfish ?Something they touched, such as a plant, animal saliva, or latex ?Insect stings If your hives are caused by an allergy, you will need to avoid whatever you are allergic to. Hives can also be caused by: ?Infections ?Having cold air or water on the skin ?Having something press or vibrate against the skin ?Changes in body temperature (such as when you cool down after a hot shower or a work out) If you have had hives on most days for more than 6 weeks, you probably do not have an allergy. Hives that last this long are called "chronic hives." In most cases, doctors do not know what causes chronic hives. If you have chronic hives, you will probably need to take medicines every day to control them. Luckily, chronic hives do usually go away with time. How are hives treated? -- You might not need treatment. Hives usually go away in a few days or weeks, even if you do not get treated. But if you do need treatment, the first step is to figure out if anything triggered the hives. If so, you will need to avoid that trigger. To relieve itching, you can take medicines called antihistamines. These are the same medicines people usually take for allergies. If you have severe hives or your hives will not go away, your doctor or nurse might suggest that you take medicines called steroids for a short time. Steroids work well but you should not take them for long, because they can cause serious side effects. These steroids are not the same ones that athletes take to build up muscle. These steroids relieve itching and reduce swelling. This topic retrieved from [employer] documented in this encounter [facility] 05-25-2024 Instructions Talita Littlejohn APRN.OSMAN - 05/25/2024 10:01 AM EDT - Start taking the Medrol Dosepak (prednisone) as prescribed: 60 mg on the first day, then decrease by 10 mg each day (50 mg, 40 mg, 30 mg, 20 mg, 10 mg). You can take the entire daily dose at once to avoid sleep disturbances. - Continue taking Zyrtec for hives. You can increase the dose to 10 mg in the morning and 10 mg at night until the rash is gone. - Schedule an appointment with your primary care provider at [facility] tomorrow to evaluate the swelling in your hands and feet and to get blood work done. - Consider using compression stockings to help with the swelling in your feet. You can purchase them at [employer] or [employer]. documented in this encounter [facility] 05-25-2024 Note HNO ID: [id number] Author: TALITA LITTLEJOHN APRN.OSMAN Service: ? Author Type: Nurse Practitioner Type: Progress Notes Filed: 05/25/2024 10:10 Note Text: [facility] Subjective HPI Sasha Clemens is a 23 year old female. Patient presents with: Rash: Hives and splotchy rash on face and arms x1 day Rash: - Recurrent episodes of hives, with current episode involving face and ears. - Describes ears as "hot and itchy." - No new soaps, lotions, detergents, clothing, or medications. - No known seasonal allergies. - Previous episodes treated with steroids, which provided relief. - Took Zyrtec this morning with no relief. Edema: - Swelling of hands and feet, with significant discomfort in feet making walking painful. - Noticed swelling upon waking this morning; describes it as much worse than it normally is." - Index finger more swollen than other fingers. - Denies any known trauma or injury. - No history of CHF. - No known history of RA; was tested as a child with negative results. Acne: - Taking spironolactone daily for acne management. Review of Systems Constitutional: Negative for fatigue and fever. Musculoskeletal: Negative for myalgias. Skin: Negative for color change and rash. Objective BP 108/76 Pulse 105 Temp 36.7 ?C (98.1 ?F) Resp 18 Wt 80.3 kg (177 lb 0.5 oz) SpO2 99% Physical Exam Vitals and nursing note reviewed. Constitutional: General: She is not in acute distress. HENT: Head: Normocephalic and atraumatic. Eyes: Conjunctiva/sclera: Conjunctivae normal. Pupils: Pupils are equal, round, and reactive to light. Pulmonary: Effort: Pulmonary effort is normal. Musculoskeletal: Cervical back: Normal range of motion and neck supple. Skin: General: Skin is warm and dry. Findings: Rash present. Rash is urticarial. Neurological: Mental Status: She is alert and oriented to person, place, and time. General: No acute distress. Skin: Urticarial rash on face, ears, and hands; no pitting edema of hands and feet. The patient consented to the use of iSTAR software for draft documentation of the visit consistent with [facility]?s Notice of Privacy Practices. History and Record Review External record(s) reviewed: prior outpatient record and [facility]where. Findings from review of outpatient records: no labs available Findings from review of Care[facility]where records: no labs available ASSESSMENT/PLAN: 1. Rash - ICD9: 782.1, ICD10: R21 (primary diagnosis) Appears to be hives Zyrtec 10 mg bid Medrol dose pack 2. Fluid collection (edema) in the arms, legs, hands and feet - ICD9: 782.3, ICD10: R60.0 Does not appear pitting, or compromising ROM Would recommend follow up tomorrow with PCP for further evaluation Diagnosis and treatment plan were discussed and questions were answered to the patient's satisfaction. Pt acknowledged understanding of concepts and follow up plan. Specific signs and symptoms that would indicate the need for higher level of care were discussed in detail warranting prompt ER evaluation. Talita Littlejohn APRN.[facility] 05-25-2024 History of Present illness Narrative [facility] Subjective HPI Sasha Clemens is a 23 year old female. Patient presents with: Rash: Hives and splotchy rash on face and arms x1 day Rash: - Recurrent episodes of hives, with current episode involving face and ears. - Describes ears as "hot and itchy." - No new soaps, lotions, detergents, clothing, or medications. - No known seasonal allergies. - Previous episodes treated with steroids, which provided relief. - Took Zyrtec this morning with no relief. Edema: - Swelling of hands and feet, with significant discomfort in feet making walking painful. - Noticed swelling upon waking this morning; describes it as much worse than it normally is. - Index finger more swollen than other fingers. - Denies any known trauma or injury. - No history of CHF. - No known history of RA; was tested as a child with negative results. Acne: - Taking spironolactone daily for acne management. Review of Systems Constitutional: Negative for fatigue and fever. Musculoskeletal: Negative for myalgias. Skin: Negative for color change and rash. Objective BP 108/76 Pulse 105 Temp 36.7 C (98.1 F) Resp 18 Wt 80.3 kg (177 lb 0.5 oz) SpO2 99% Physical Exam Vitals and nursing note reviewed. Constitutional: General: She is not in acute distress. HENT: Head: Normocephalic and atraumatic. Eyes: Conjunctiva/sclera: Conjunctivae normal. Pupils: Pupils are equal, round, and reactive to light. Pulmonary: Effort: Pulmonary effort is normal. Musculoskeletal: Cervical back: Normal range of motion and neck supple. Skin: General: Skin is warm and dry. Findings: Rash present. Rash is urticarial. Neurological: Mental Status: She is alert and oriented to person, place, and time. General: No acute distress. Skin: Urticarial rash on face, ears, and hands; no pitting edema of hands and feet. The patient consented to the use of iSTAR software for draft documentation of the visit consistent with [facility] s Notice of Privacy Practices. History and Record Review External record(s) reviewed: prior outpatient record and CareEverywhere. Findings from review of outpatient records: no labs available Findings from review of CareEverywhere records: no labs available ASSESSMENT/PLAN: 1. Rash - ICD9: 782.1, ICD10: R21 (primary diagnosis) Appears to be hives Zyrtec 10 mg bid Medrol dose pack 2. Fluid collection (edema) in the arms, legs, hands and feet - ICD9: 782.3, ICD10: R60.0 Does not appear pitting, or compromising ROM Would recommend follow up tomorrow with PCP for further evaluation Diagnosis and treatment plan were discussed and questions were answered to the patient's satisfaction. Pt acknowledged understanding of concepts and follow up plan. Specific signs and symptoms that would indicate the need for higher level of care were discussed in detail warranting prompt ER evaluation. Talita Littlejohn APRN.OSMAN documented in this encounter [facility] Evaluation note Diagnosis Onset Date Urticaria acute [facility] Work Phone: Evaluation note* Diagnosis Rash- Primary Rash and other nonspecific skin eruption Fluid collection (edema) in the arms, legs, hands and feet Edema [facility] Diagnosis Hives- Primary Urticaria, unspecified Facial swelling Swelling, mass, or lump in head and neck [facility] Diagnosis Rash- Primary Rash and other nonspecific skin eruption Localized swelling, mass, or lump of upper extremity, bilateral [facility] Diagnosis Encounter for gynecological examination (general) (routine) without abnormal findings- Primary Screening for cervical cancer Screening for malignant neoplasm of the cervix Encounter for screening for human papillomavirus (HPV) Special screening examination for human papillomavirus (HPV) Screen for STD (sexually transmitted disease) Screening examination for venereal disease documented in this encounter [facility] Summary Purpose Family History No Family History Records FoundNo Family History Records FoundNo Family History Records Found Advance Directives No Advanced Directives Records FoundNo Advanced Directives Records FoundNo Advanced Directives Records Found Chief Complaint and Reason for Visit Chief Complaint BUG BITES Reason for Visit Urticaria Additional Source Comments INFORMATION SOURCE (unrecogn ized section and content) DATE CREATED AUTHOR 06/01/2020 [facility] DATE CREATED AUTHOR AUTHOR'S ORGANIZ ATION 09/08/2024 [facility] DATE CREATED AUTHOR AUTHOR'S ORGANIZ ATION 09/19/2024 [facility] Goals (unrecognized section and content) Goals may be documented in a n alternate section Source Comments (unrecognize d section and content) In the event this informatio n is protected by the Federal Confidentiality of Alcohol and Drug Abuse Patient Records regulations: The Federal rules restrict any use of the information to criminally investigate or prosecute any alcohol or drug abuse patient.[facility] the event this information is protected by the Federal Confidentiality of Alcohol and Drug Abuse Patient Records regulations: The Federal rules restrict any use of the information to criminally investigate or prosecute any alcohol or drug abuse patient.[facility] the event this information is protected by the Federal Confidentiality of Alcohol and Drug Abuse Patient Records regulations: The Federal rules restrict any use of the information to criminally investigate or prosecute any alcohol or drug abuse patient.[facility] the event this information is protected by the Federal Confidentiality of Alcohol and Drug Abuse Patient Records regulations: The Federal rules restrict any use of the information to criminally investigate or prosecute any alcohol or drug abuse patient.[facility] the event this information is protected by the Federal Confidentiality of Alcohol and Drug Abuse Patient Records regulations: The Federal rules restrict any use of the information to criminally investigate or prosecute any alcohol or drug abuse patient.[facility] Reason for Visit (unrecogniz ed section and content) Reason Comments Rash Hives and splotchy r shakir on face and arms x1 day Reason Comments Hives On face x this AM Reason Comments Rash hives seen on Sunday given medrol, swelling in hands x this am Reason Comments Well Woman Reason Onset Date Comments Results 09/16/2024 FOR RECORDS PERTAINING TO PATIENTS WHO ARE OR HAVE BEEN ENROLLED IN A CHEMICAL DEPENDENCY/SUBSTANCEABUSE PROGRAM, SOME INFORMATION MAY BE OMITTED. This clinical summary was aggregated from multiple sources. Caution should be exercised in using it in the provision of clinical care. This summary normalizes information from multiple sources, and as a consequence, information in this document may materially change the coding, format and clinical context of patient data. In addition, data may be omitted in some cases. CLINICAL DECISIONS SHOULD BE BASED ON THE PRIMARY CLINICAL RECORDS. [facility] [employer] [facility] provides no warranty or guarantee of the accuracy or completeness of information in this document.
[2024-12-08 18:14] LABS: AST(SGOT) 24 U/L (<=31); Alanine Aminotransfer ALT/SGPT 22 U/L (<=34); Albumin, Serum 4.1 g/dL (3.5-5.0); Alkaline Phosphatase 61 U/L (35-104); Anion Gap 13 (5-15); BUN 12 mg/dL (4-19); BUN/Creat Ratio 15.2 RATIO (10-20); Calcium,Total 9.2 mg/dL (7.6-11.0); Carbon Dioxide 19.7 mmol/L (21.0-32.0); Chloride 103 mmol/L (98-108); Globulin 3.0 g/dL (2.2-4.2); Glucose 93 mg/dL (70-99); Potassium 3.8 mmol/L (3.3-5.1); Vitamin D,25 Hydroxy 24.4 ng/mL (30-100)
[2024-12-08 19:05] LABS: Hematocrit 38.7 % (37-47); Hemoglobin 13.4 g/dL (12.0-15.0); Immature Granulocytes Count 0.020 X10^3/uL (0.0-0.0); Mean Corp Hgb Conc 34.6 g/dL (32-36); Mean Corpuscular Volume 88.2 fL (81-99); Mean Platelet Vol. 12.4 fl (6.2-12.0); NRBC Flagged by Analyzer 0 % (0-5); Platelet Count 217 K/mm3 (150-450); RBC Distribution Width CV 13.1 % (11.6-14.6); RBC Distribution Width SD 42.4 fl (35.1-43.9); Red Blood Count 4.39 M/mm3 (4.2-5.4); White Blood Count 7.8 K/mm3 (4.4-11.0)
[2024-12-10 14:09] LABS: ANTINUCLEAR ANTIBODIES DIRECT Negative (Negative)
== END | disposition home or self-care (01) ==
LOC: LAB 16:56
PROVIDERS: PCP Nurse Practitioner Family; Referring Provider Specialist; Visit Provider Specialist
DX: L50.1 Idiopathic urticaria (principal); T78.09XD Anaphylactic reaction due to other food products, subsequent encounter; E55.9 Vitamin D deficiency, unspecified; E07.9 Disorder of thyroid, unspecified
CPT/HCPCS: 36415; 80053; 82306; 82785; 83520; 84443; 85025; 85652; 86038; 86160; 86235; 86376; 86431